=== PATIENT | male | born 1950 | race Caucasian/White ===

== ENCOUNTER 2017-10-17 17:16 | Emergency (ER) | payer MEDICARE, MEDICAID ==
[~2017-10-17] VITALS: Ht 185.4 cm; Wt 77.7 kg
[~2017-10-17 17:16] MED LIST: CALC667T5 PO; ENAL20TA PO; LANTUS SUBCUT; LOSA25TA96 PO; NIFE90TA2 PO; SYN0.088T PO
[2017-10-17] MEDS ORDERED: albuterol 2.5 MG/3 ML nebule NEB ONE (18:45)
[2017-10-17] MEDS ORDERED: ALBU8HFA PO (19:28)
[2017-10-17 19:37] VITALS: BP 175/86
== END 2017-10-17 19:38 | disposition home or self-care (01) ==
LOC: ER 17:17
DX: R05 Cough (principal); R06.2 Wheezing; E11.22 Type 2 diabetes mellitus with diabetic chronic kidney disease; N18.6 End stage renal disease; Z99.2 Dependence on renal dialysis; Z79.4 Long term (current) use of insulin
CPT/HCPCS: 71046; 94640; 94760; 99284

== ENCOUNTER 2017-12-04 08:14 | Day surgery (SDC) | payer MEDICARE, MEDICAID ==
[2017-12-04] VITALS (9 sets, daily range): BP systolic 140–174; BP diastolic 76–103
[~2017-12-04] VITALS: Ht 185.4 cm; Wt 87.4 kg
[~2017-12-04 08:14] MED LIST changes: +APIX5TAB3 PO; -CALC667T5 PO; +FOLI0.8T7 PO; +FURO40TA4 PO; -LANTUS SUBCUT; +LIDOcaine 1% 30ml preserv. free vial SQ STA; -LOSA25TA96 PO; +METO-477 PO; -NIFE90TA2 PO; -SYN0.088T PO
[2017-12-04] MEDS ORDERED: DILT30TA34 PO (08:59)
== END 2017-12-04 10:25 | disposition home or self-care (01) ==
LOC: SSTAY O 08:14
PROVIDERS: ATTEND Radiology Diagnostic Radiology
DX: J90 Pleural effusion, not elsewhere classified (principal); E11.22 Type 2 diabetes mellitus with diabetic chronic kidney disease; I13.2 Hypertensive heart and chronic kidney disease with heart failure and with stage 5 chronic kidney disease, or end stage renal disease; N18.6 End stage renal disease; I50.9 Heart failure, unspecified; B19.20 Unspecified viral hepatitis C without hepatic coma; F10.21 Alcohol dependence, in remission; F17.210 Nicotine dependence, cigarettes, uncomplicated; Z79.01 Long term (current) use of anticoagulants; Z79.4 Long term (current) use of insulin; Z94.4 Liver transplant status; Z99.2 Dependence on renal dialysis; Z98.890 Other specified postprocedural states; Z79.899 Other long term (current) drug therapy
CPT/HCPCS: 32555; 71045; A6449; J3490; 36415; 88108; 88305

== ENCOUNTER 2017-12-16 09:58 | Day surgery (SDC) | payer MEDICARE, MEDICAID ==
[2017-12-11 15:40] LABS: BASOPHILS % (AUTO) 0.6 % (0-1); EOSINOPHILS # (AUTO) 0.5 X10'3 (0-0.9); EOSINOPHILS % (AUTO) 8.1 % (0-6); HEMOGLOBIN 13.1 g/dl (14.0-17.9); LYMPHOCYTES # (AUTO) 1.2 X10'3 (1.1-4.8); LYMPHOCYTES % (AUTO) 20.1 % (21-51); MEAN CORPUSCULAR HEMOGLOBIN 34.9 PG (27.0-31.0); MEAN CORPUSCULAR HGB CONC 34.3 % (33.0-36.5); MEAN CORPUSCULAR VOLUME 101.8 FL (78-98); MEAN PLATELET VOLUME 7.6 FL (7.4-10.4); MONOCYTES # (AUTO) 0.6 X10'3 (0-0.9); MONOCYTES % (AUTO) 10.3 % (2-12); NEUTROPHILS # (AUTO) 3.6 X10'3 (1.8-7.7); NEUTROPHILS % (AUTO) 60.9 % (42-75); PLATELET COUNT 110 X10'3 (140-440); RED BLOOD COUNT 3.73 X10'6 (4.70-6.10); RED CELL DISTRIBUTION WIDTH 17.4 % (11.5-14.5)
[2017-12-11 15:49] LABS: ANION GAP 10 (8-16); BLOOD UREA NITROGEN 61 MG/DL (7-18); BUN/CREATININE RATIO 10.9 (5.4-32.0); CALCIUM 7.8 MG/DL (8.5-10.1); CHLORIDE 98 MMOL/L (99-107); CREATININE 5.58 MG/DL (0.60-1.10); GLUCOSE 316 MG/DL (70-104); POTASSIUM 4.4 MMOL/L (3.5-5.1); SODIUM 137 MMOL/L (135-145); TOTAL CARBON DIOXIDE 29.5 MMOL/L (24-32); eGFR 10 ML/MIN
[2017-12-11 15:50] LABS: INR 1.1 INR; PARTIAL THROMBOPLASTIN TIME 31 SECONDS (22-32); PROTHROMBIN TIME 11.4 SECONDS (9.0-12.0)
[~2017-12-16] VITALS: Ht 185.4 cm; Wt 87.0 kg
[2017-12-16] VITALS (14 sets, daily range): BP systolic 123–158; BP diastolic 76–113
[~2017-12-16 09:58] MED LIST changes: +DILT30TA34 PO; -LIDOcaine 1% 30ml preserv. free vial SQ STA
[2017-12-16] MEDS ORDERED: LIDOcaine 1% (10mg/ml) 2ml vial ONE (10:28)
[2017-12-16] MEDS ORDERED: fentaNYL/PF 50MCG/1 ML 2ML syringe IV ONE (10:55)
[2017-12-16] MEDS ORDERED: normal saline 1000ml 1,000 ML IV PRN (10:55)
[2017-12-16] MEDS ORDERED: MIDAZolam 1mg/ml 10ml vial IV ONE (10:55)
[2017-12-16] MEDS ORDERED: LANTUS SQ (10:58)
[2017-12-16] MEDS ORDERED: FURO80TA3 PO (10:58)
== END 2017-12-16 14:15 | disposition home or self-care (01) ==
LOC: SSTAY O 09:58
PROVIDERS: ATTEND Internal Medicine Interventional Cardiology
DX: I48.91 Unspecified atrial fibrillation (principal); I12.0 Hypertensive chronic kidney disease with stage 5 chronic kidney disease or end stage renal disease; E10.22 Type 1 diabetes mellitus with diabetic chronic kidney disease; N18.6 End stage renal disease; B19.20 Unspecified viral hepatitis C without hepatic coma; I44.39 Other atrioventricular block; F17.210 Nicotine dependence, cigarettes, uncomplicated; F19.21 Other psychoactive substance dependence, in remission; Z94.4 Liver transplant status; Z79.4 Long term (current) use of insulin; Z79.01 Long term (current) use of anticoagulants; Z79.82 Long term (current) use of aspirin; Z99.2 Dependence on renal dialysis; Z79.899 Other long term (current) drug therapy; Z98.890 Other specified postprocedural states
CPT/HCPCS: 36415; 80048; 82948; 85025; 85610; 85730; 92960; 93005; J2250; J3010; J7030; A4620; J3490

== ENCOUNTER 2018-02-16 23:15 | Inpatient (IN) | payer MEDICARE, MEDICAID ==
[~2018-02-16] VITALS: Ht 185.4 cm; Wt 80.4 kg
[~2018-02-16 23:15] MED LIST changes: -DILT30TA34 PO; -ENAL20TA PO; -FURO40TA4 PO; +FURO80TA3 PO; +LANTUS SQ
[2018-02-16 23:58] LABS: BASOPHILS # (AUTO) 0.1 X10'3 (0-0.2); BASOPHILS % (AUTO) 0.8 % (0-1); EOSINOPHILS # (AUTO) 0.5 X10'3 (0-0.9); EOSINOPHILS % (AUTO) 7.3 % (0-6); HEMATOCRIT 28.9 % (42.0-52.0); LYMPHOCYTES # (AUTO) 1.7 X10'3 (1.1-4.8); LYMPHOCYTES % (AUTO) 23.4 % (21-51); MEAN CORPUSCULAR HEMOGLOBIN 34.3 PG (27.0-31.0); MEAN CORPUSCULAR HGB CONC 34.6 % (33.0-36.5); MEAN CORPUSCULAR VOLUME 99.3 FL (78-98); MEAN PLATELET VOLUME 6.9 FL (7.4-10.4); MONOCYTES # (AUTO) 0.6 X10'3 (0-0.9); MONOCYTES % (AUTO) 7.6 % (2-12); NEUTROPHILS # (AUTO) 4.4 X10'3 (1.8-7.7); NEUTROPHILS % (AUTO) 60.9 % (42-75); PLATELET COUNT 157 X10'3 (140-440); RED BLOOD COUNT 2.91 X10'6 (4.70-6.10); RED CELL DISTRIBUTION WIDTH 16.3 % (11.5-14.5); WHITE BLOOD COUNT 7.2 X10'3 (4.5-11.0)
[2018-02-17] VITALS (13 sets, daily range): BP systolic 145–188; BP diastolic 70–96
[2018-02-17 00:08] LABS: PARTIAL THROMBOPLASTIN TIME 28 SECONDS (22-32); PROTHROMBIN TIME 10.4 SECONDS (9.0-12.0)
[2018-02-17 00:11] LABS: ALANINE AMINOTRANSFERASE 23 U/L (12-78); ALBUMIN/GLOBULIN RATIO 0.7 (1.1-1.5); ALKALINE PHOSPHATASE 136 IU/L (46-116); ANION GAP 8 (8-16); ASPARTATE AMINO TRANSFERASE 25 U/L (10-37); BILIRUBIN,TOTAL 0.8 MG/DL (0.1-1.0); BLOOD UREA NITROGEN 54 MG/DL (7-18); BUN/CREATININE RATIO 11.4 (5.4-32.0); CALCIUM 7.6 MG/DL (8.5-10.1); CHLORIDE 98 MMOL/L (99-107); CREATININE 4.73 MG/DL (0.60-1.10); GLUCOSE 123 MG/DL (70-104); POTASSIUM 4.4 MMOL/L (3.5-5.1); SODIUM 139 MMOL/L (135-145); TOTAL CARBON DIOXIDE 32.8 MMOL/L (24-32); TOTAL PROTEIN 7.3 G/DL (6.4-8.2); eGFR 12 ML/MIN
[2018-02-17] MEDS ORDERED: morphine 4 MG/ML inj SYRINge IV ONE (00:40)
[2018-02-17] MEDS ORDERED: ondansetron/PF 4mg/2ml inj IV ONE (00:40)
[2018-02-17] MEDS ORDERED: mag hydrox/Alum hydrox/simeth 30ml oral suspension PO PRN (01:10)
[2018-02-17] MEDS ORDERED: acetaminophen 325mg tablet PO PRN ×2 (01:10)
[2018-02-17] MEDS ORDERED: magnesium hydroxide 30ml (MOM) UD suspension PO PRN (01:10)
[2018-02-17] MEDS ORDERED: dextrose ORAL solution 15 GM/59 ML bottle PO PRN ×2 (01:20)
[2018-02-17] MEDS ORDERED: dextrose 50%-water 50ml dispensing syringe IV PRN ×2 (01:20)
[2018-02-17] MEDS ORDERED: glucagon, human recombinant 1mg kit SUBCUT PRN (01:20)
[2018-02-17] MEDS ORDERED: MESSAGE TO PHARMACY PO ONE (01:20)
[2018-02-17 01:55] LABS: HEMOGLOBIN A1C 7.1 % (4.5-6.2)
[2018-02-17] MEDS: pantoprazole 40MG/NS 100ML BAG 100 ML IV SCH ×5 (04:02→21:01)
[2018-02-17] MEDS ORDERED: MORPHINE 2MG in 2ml NS syringe IV PRN (04:40)
[2018-02-17] MEDS: morphine 2 MG/ML inj. syringe IV PRN ×2 (06:06→11:00)
[2018-02-17] MEDS: ondansetron/PF 4mg/2ml inj IV PRN ×2 (06:30→13:16)
[2018-02-17 06:47] LABS: CLARITY,URINE CLEAR (Clear); COLOR,URINE YELLOW (Yellow); GLUCOSE, URINE 250 mg/dl (Neg); KETONES,URINE NEGATIVE (Neg); LEUKOCYTE ESTERASE ,URINE NEGATIVE (Neg); NITRITES, URINE NEGATIVE (Neg); OCCULT BLOOD,URINE SMALL (Neg); PROTEIN,URINE >=300 mg/dl (Neg); UA COLLECTION TYPE VOIDED; UROBILINOGEN,URINE 0.2 E.U/dL (0.2-1.0)
[2018-02-17 06:57] LABS: BACTERIA,URINE NONE SEEN /HPF (Neg); MUCUS STRANDS NONE SEEN /LPF (Neg); SQUAMOUS EPITHELIAL CELL,UR FEW /LPF (FEW); WBC,URINE NONE SEEN /HPF (0-4)
[2018-02-17] MEDS: folic acid/vitamin B complex w/vitamin C 0.8mg tablet PO SCH (08:08)
[2018-02-17] MEDS: furosemide 40mg tablet PO SCH ×2 (08:08→19:37)
[2018-02-17] MEDS: metoprolol tartrate 50mg tablet PO SCH ×4 (08:08→20:56)
[2018-02-17 08:22] LABS: BASOPHILS % (AUTO) 0.5 % (0-1); EOSINOPHILS # (AUTO) 0.4 X10'3 (0-0.9); EOSINOPHILS % (AUTO) 7.8 % (0-6); HEMATOCRIT 24.1 % (42.0-52.0); HEMOGLOBIN 8.4 g/dl (14.0-17.9); LYMPHOCYTES # (AUTO) 0.9 X10'3 (1.1-4.8); LYMPHOCYTES % (AUTO) 17.4 % (21-51); MEAN CORPUSCULAR HEMOGLOBIN 34.3 PG (27.0-31.0); MEAN CORPUSCULAR HGB CONC 34.7 % (33.0-36.5); MEAN CORPUSCULAR VOLUME 98.7 FL (78-98); MEAN PLATELET VOLUME 7.1 FL (7.4-10.4); MONOCYTES # (AUTO) 0.4 X10'3 (0-0.9); MONOCYTES % (AUTO) 7.5 % (2-12); NEUTROPHILS # (AUTO) 3.5 X10'3 (1.8-7.7); NEUTROPHILS % (AUTO) 66.8 % (42-75); PLATELET COUNT 107 X10'3 (140-440); RED BLOOD COUNT 2.44 X10'6 (4.70-6.10); RED CELL DISTRIBUTION WIDTH 16.1 % (11.5-14.5); WHITE BLOOD COUNT 5.3 X10'3 (4.5-11.0)
[2018-02-17 08:36] LABS: OCCULT BLOOD STOOL POSITIVE (Neg)
[2018-02-17 08:47] LABS: ALANINE AMINOTRANSFERASE 20 U/L (12-78); ALBUMIN 2.4 G/DL (3.4-5.0); ALBUMIN/GLOBULIN RATIO 0.7 (1.1-1.5); ALKALINE PHOSPHATASE 92 IU/L (46-116); ANION GAP 7 (8-16); ASPARTATE AMINO TRANSFERASE 22 U/L (10-37); BILIRUBIN,TOTAL 0.9 MG/DL (0.1-1.0); BLOOD UREA NITROGEN 61 MG/DL (7-18); BUN/CREATININE RATIO 11.8 (5.4-32.0); CALCIUM 7.5 MG/DL (8.5-10.1); CHLORIDE 101 MMOL/L (99-107); CREATININE 5.15 MG/DL (0.60-1.10); GLUCOSE 119 MG/DL (70-104); POTASSIUM 4.6 MMOL/L (3.5-5.1); SODIUM 139 MMOL/L (135-145); TOTAL CARBON DIOXIDE 31.3 MMOL/L (24-32); TOTAL PROTEIN 5.9 G/DL (6.4-8.2); eGFR 11 ML/MIN
[2018-02-17] MEDS ORDERED: TEMA30CA5 PO (09:46)
[2018-02-17] MEDS ORDERED: VALS80TA31 PO (09:49)
[2018-02-17 12:02] LABS: HEMATOCRIT 25.3 % (42.0-52.0); HEMOGLOBIN 8.9 g/dl (14.0-17.9); MEAN CORPUSCULAR HEMOGLOBIN 34.6 PG (27.0-31.0); MEAN CORPUSCULAR HGB CONC 35.1 % (33.0-36.5); MEAN CORPUSCULAR VOLUME 98.6 FL (78-98); MEAN PLATELET VOLUME 6.9 FL (7.4-10.4); PLATELET COUNT 125 X10'3 (140-440); RED BLOOD COUNT 2.56 X10'6 (4.70-6.10); RED CELL DISTRIBUTION WIDTH 16.1 % (11.5-14.5); WHITE BLOOD COUNT 6.2 X10'3 (4.5-11.0)
[2018-02-17] MEDS ORDERED: METO-477 PO (13:22)
[2018-02-17] MEDS ORDERED: MIDAZolam 5mg/5ml vial ONE (16:49)
[2018-02-17] MEDS ORDERED: fentaNYL/PF 50MCG/1 ML 2ML syringe ONE (16:49)
[2018-02-17] MEDS ORDERED: LIDOcaine Viscous 15ml cup ONE (16:49)
[2018-02-17] MEDS ORDERED: ondansetron/PF 4mg/2ml inj ONE (17:45)
[2018-02-17] MEDS ORDERED: PEG 3350/Na sulf,bicarb,Cl/KCl oral sol 4 liter bottle PO ONE ×2 (18:45→18:50)
[2018-02-17] MEDS: insulin glargine (Lantus) pen - multi-dose SQ SCH (21:00)
[2018-02-18] VITALS (9 sets, daily range): BP systolic 159–186; BP diastolic 55–83
[2018-02-18] MEDS: ondansetron/PF 4mg/2ml inj IV PRN ×2 (00:02→21:34)
[2018-02-18] MEDS: pantoprazole 40MG/NS 100ML BAG 100 ML IV SCH ×4 (02:05→17:42)
[2018-02-18 06:09] LABS: BASOPHILS % (AUTO) 0.6 % (0-1); EOSINOPHILS # (AUTO) 0.3 X10'3 (0-0.9); EOSINOPHILS % (AUTO) 4.5 % (0-6); HEMATOCRIT 24.2 % (42.0-52.0); HEMOGLOBIN 8.6 g/dl (14.0-17.9); MEAN CORPUSCULAR HEMOGLOBIN 34.7 PG (27.0-31.0); MEAN CORPUSCULAR HGB CONC 35.5 % (33.0-36.5); MEAN CORPUSCULAR VOLUME 97.7 FL (78-98); MEAN PLATELET VOLUME 7.1 FL (7.4-10.4); MONOCYTES # (AUTO) 0.3 X10'3 (0-0.9); MONOCYTES % (AUTO) 5.6 % (2-12); NEUTROPHILS # (AUTO) 4.5 X10'3 (1.8-7.7); NEUTROPHILS % (AUTO) 73.3 % (42-75); PLATELET COUNT 125 X10'3 (140-440); RED BLOOD COUNT 2.47 X10'6 (4.70-6.10); RED CELL DISTRIBUTION WIDTH 16.1 % (11.5-14.5); WHITE BLOOD COUNT 6.1 X10'3 (4.5-11.0)
[2018-02-18 06:37] LABS: ALANINE AMINOTRANSFERASE 19 U/L (12-78); ALBUMIN 2.7 G/DL (3.4-5.0); ALBUMIN/GLOBULIN RATIO 0.8 (1.1-1.5); ALKALINE PHOSPHATASE 87 IU/L (46-116); ANION GAP 15 (8-16); ASPARTATE AMINO TRANSFERASE 22 U/L (10-37); BILIRUBIN,TOTAL 1.1 MG/DL (0.1-1.0); BLOOD UREA NITROGEN 78 MG/DL (7-18); BUN/CREATININE RATIO 12.1 (5.4-32.0); CALCIUM 7.4 MG/DL (8.5-10.1); CHLORIDE 100 MMOL/L (99-107); CREATININE 6.45 MG/DL (0.60-1.10); GLUCOSE 143 MG/DL (70-104); MAGNESIUM 2.2 MG/DL (1.5-2.4); PHOSPHORUS 6.3 MG/DL (2.3-4.5); POTASSIUM 5.7 MMOL/L (3.5-5.1); SODIUM 140 MMOL/L (135-145); TOTAL CARBON DIOXIDE 25.5 MMOL/L (24-32); TOTAL PROTEIN 6.3 G/DL (6.4-8.2); eGFR 9 ML/MIN
[2018-02-18] MEDS: folic acid/vitamin B complex w/vitamin C 0.8mg tablet PO SCH (07:19)
[2018-02-18] MEDS: furosemide 40mg tablet PO SCH ×2 (07:19→21:30)
[2018-02-18] MEDS: metoprolol tartrate 50mg tablet PO SCH ×3 (07:19→21:30)
[2018-02-18] MEDS ORDERED: normal saline 1000ml 250 ML IV PRN (08:00)
[2018-02-18] MEDS ORDERED: PEG 3350/Na sulf,bicarb,Cl/KCl oral sol 4 liter bottle PO ONE (08:00)
[2018-02-18] MEDS ORDERED: normal saline 1000ml 100 ML IV PRN (08:00)
[2018-02-18] MEDS ORDERED: LIDOcaine 1% (10mg/ml) 2ml vial SQ ONE (08:00)
[2018-02-18] MEDS ORDERED: epoetin 20,000 units/ml inj IV ONE (08:00)
[2018-02-18] MEDS ORDERED: MIDAZolam 5mg/5ml vial ONE (14:08)
[2018-02-18] MEDS ORDERED: fentaNYL/PF 50MCG/1 ML 2ML syringe ONE (14:08)
[2018-02-18] MEDS: insulin glargine (Lantus) pen - multi-dose SQ SCH (21:53)
[2018-02-19] MEDS: pantoprazole 40MG/NS 100ML BAG 100 ML IV SCH ×6 (01:00→22:13)
[2018-02-19 02:00] VITALS: BP 186/79
[2018-02-19 06:00] VITALS: BP 173/74
[2018-02-19 06:35] LABS: BASOPHILS % (AUTO) 0.6 % (0-1); EOSINOPHILS # (AUTO) 0.4 X10'3 (0-0.9); EOSINOPHILS % (AUTO) 6.8 % (0-6); HEMOGLOBIN 7.6 g/dl (14.0-17.9); LYMPHOCYTES # (AUTO) 1.2 X10'3 (1.1-4.8); LYMPHOCYTES % (AUTO) 21.3 % (21-51); MEAN CORPUSCULAR HEMOGLOBIN 34.1 PG (27.0-31.0); MEAN CORPUSCULAR HGB CONC 34.9 % (33.0-36.5); MEAN CORPUSCULAR VOLUME 97.7 FL (78-98); MEAN PLATELET VOLUME 6.9 FL (7.4-10.4); MONOCYTES # (AUTO) 0.5 X10'3 (0-0.9); MONOCYTES % (AUTO) 9.4 % (2-12); NEUTROPHILS # (AUTO) 3.5 X10'3 (1.8-7.7); NEUTROPHILS % (AUTO) 61.9 % (42-75); PLATELET COUNT 108 X10'3 (140-440); RED BLOOD COUNT 2.22 X10'6 (4.70-6.10); RED CELL DISTRIBUTION WIDTH 16.7 % (11.5-14.5); WHITE BLOOD COUNT 5.6 X10'3 (4.5-11.0)
[2018-02-19 06:45] LABS: HEMATOCRIT 21.7 % (42.0-52.0)
[2018-02-19 06:50] LABS: ALANINE AMINOTRANSFERASE 23 U/L (12-78); ALBUMIN 2.5 G/DL (3.4-5.0); ALBUMIN/GLOBULIN RATIO 0.7 (1.1-1.5); ALKALINE PHOSPHATASE 86 IU/L (46-116); ANION GAP 9 (8-16); ASPARTATE AMINO TRANSFERASE 20 U/L (10-37); BILIRUBIN,TOTAL 0.9 MG/DL (0.1-1.0); BLOOD UREA NITROGEN 36 MG/DL (7-18); BUN/CREATININE RATIO 8.1 (5.4-32.0); CALCIUM 7.2 MG/DL (8.5-10.1); CHLORIDE 102 MMOL/L (99-107); CREATININE 4.43 MG/DL (0.60-1.10); GLUCOSE 158 MG/DL (70-104); MAGNESIUM 1.7 MG/DL (1.5-2.4); PHOSPHORUS 4.4 MG/DL (2.3-4.5); POTASSIUM 4.2 MMOL/L (3.5-5.1); SODIUM 140 MMOL/L (135-145); TOTAL CARBON DIOXIDE 29.3 MMOL/L (24-32); TOTAL PROTEIN 5.9 G/DL (6.4-8.2); eGFR 13 ML/MIN
[2018-02-19] MEDS: insulin Lispro (HumaLOG) vial - multi-dose SQ SCH ×2 (07:33→17:17)
[2018-02-19] MEDS: folic acid/vitamin B complex w/vitamin C 0.8mg tablet PO SCH (07:48)
[2018-02-19] MEDS: furosemide 40mg tablet PO SCH ×2 (07:48→19:51)
[2018-02-19] MEDS: metoprolol tartrate 50mg tablet PO SCH ×3 (07:49→22:13)
[2018-02-19 10:00] VITALS: BP 185/95
[2018-02-19] MEDS: ondansetron/PF 4mg/2ml inj IV PRN (13:06)
[2018-02-19] MEDS: valsartan 80mg tablet PO SCH (15:54)
[2018-02-19] MEDS: insulin glargine (Lantus) pen - multi-dose SQ SCH (17:14)
[2018-02-19 18:00] VITALS: BP 168/69
[2018-02-19 22:00] VITALS: BP 170/70
[2018-02-19 22:14] VITALS: BP 161/82
[2018-02-20] MEDS: ondansetron/PF 4mg/2ml inj IV PRN ×2 (01:09→11:20)
[2018-02-20] MEDS: pantoprazole 40MG/NS 100ML BAG 100 ML IV SCH ×6 (02:57→19:41)
[2018-02-20 05:28] LABS: BASOPHILS % (AUTO) 0.6 % (0-1); EOSINOPHILS # (AUTO) 0.5 X10'3 (0-0.9); EOSINOPHILS % (AUTO) 8.3 % (0-6); HEMOGLOBIN 7.3 g/dl (14.0-17.9); LYMPHOCYTES # (AUTO) 1.2 X10'3 (1.1-4.8); LYMPHOCYTES % (AUTO) 19.5 % (21-51); MEAN CORPUSCULAR HEMOGLOBIN 34.7 PG (27.0-31.0); MEAN PLATELET VOLUME 7.1 FL (7.4-10.4); MONOCYTES # (AUTO) 0.5 X10'3 (0-0.9); NEUTROPHILS # (AUTO) 3.8 X10'3 (1.8-7.7); NEUTROPHILS % (AUTO) 63.6 % (42-75); PLATELET COUNT 109 X10'3 (140-440); RED BLOOD COUNT 2.11 X10'6 (4.70-6.10)
[2018-02-20 05:40] LABS: HEMATOCRIT 20.9 % (42.0-52.0)
[2018-02-20 05:57] LABS: ALANINE AMINOTRANSFERASE 20 U/L (12-78); ALBUMIN 2.5 G/DL (3.4-5.0); ALBUMIN/GLOBULIN RATIO 0.7 (1.1-1.5); ALKALINE PHOSPHATASE 86 IU/L (46-116); ANION GAP 9 (8-16); ASPARTATE AMINO TRANSFERASE 17 U/L (10-37); BILIRUBIN,TOTAL 0.7 MG/DL (0.1-1.0); BLOOD UREA NITROGEN 49 MG/DL (7-18); BUN/CREATININE RATIO 7.7 (5.4-32.0); CALCIUM 7.2 MG/DL (8.5-10.1); CHLORIDE 100 MMOL/L (99-107); CREATININE 6.39 MG/DL (0.60-1.10); GLUCOSE 126 MG/DL (70-104); MAGNESIUM 1.5 MG/DL (1.5-2.4); PHOSPHORUS 5.1 MG/DL (2.3-4.5); POTASSIUM 4.2 MMOL/L (3.5-5.1); SODIUM 137 MMOL/L (135-145); TOTAL CARBON DIOXIDE 27.7 MMOL/L (24-32); TOTAL PROTEIN 5.9 G/DL (6.4-8.2); eGFR 9 ML/MIN
[2018-02-20] MEDS: furosemide 40mg tablet PO SCH ×2 (08:00→19:41)
[2018-02-20] MEDS ORDERED: normal saline 1000ml 250 ML IV PRN (08:00)
[2018-02-20] MEDS ORDERED: epoetin 20,000 units/ml inj IV ONE (08:00)
[2018-02-20] MEDS: folic acid/vitamin B complex w/vitamin C 0.8mg tablet PO SCH (08:00)
[2018-02-20] MEDS: metoprolol tartrate 50mg tablet PO SCH ×3 (08:00→21:18)
[2018-02-20] MEDS ORDERED: LIDOcaine 1% (10mg/ml) 2ml vial SQ ONE (08:00)
[2018-02-20] MEDS ORDERED: normal saline 1000ml 100 ML IV PRN (08:00)
[2018-02-20] MEDS: valsartan 80mg tablet PO SCH (08:00)
[2018-02-20 10:00] VITALS: BP 186/90
[2018-02-20 18:00] VITALS: BP 176/72
[2018-02-20] MEDS ORDERED: LORazepam 2 mg/ml vial IV ONE (18:20)
[2018-02-20 19:40] VITALS: BP 182/77
[2018-02-20] MEDS: insulin glargine (Lantus) pen - multi-dose SQ SCH (21:22)
[2018-02-20 22:00] VITALS: BP 175/72
[2018-02-21] VITALS (7 sets, daily range): BP systolic 166–196; BP diastolic 55–91
[2018-02-21] MEDS: pantoprazole 40MG/NS 100ML BAG 100 ML IV SCH ×2 (00:47→06:11)
[2018-02-21] MEDS: valsartan 80mg tablet PO SCH (05:40)
[2018-02-21 06:04] LABS: BASOPHILS % (AUTO) 0.6 % (0-1); EOSINOPHILS # (AUTO) 0.5 X10'3 (0-0.9); EOSINOPHILS % (AUTO) 8.8 % (0-6); HEMOGLOBIN 7.5 g/dl (14.0-17.9); LYMPHOCYTES # (AUTO) 1.1 X10'3 (1.1-4.8); LYMPHOCYTES % (AUTO) 17.3 % (21-51); MEAN CORPUSCULAR HEMOGLOBIN 34.5 PG (27.0-31.0); MEAN CORPUSCULAR VOLUME 98.6 FL (78-98); MEAN PLATELET VOLUME 7.2 FL (7.4-10.4); MONOCYTES # (AUTO) 0.6 X10'3 (0-0.9); MONOCYTES % (AUTO) 9.5 % (2-12); NEUTROPHILS # (AUTO) 3.9 X10'3 (1.8-7.7); NEUTROPHILS % (AUTO) 63.8 % (42-75); PLATELET COUNT 114 X10'3 (140-440); RED BLOOD COUNT 2.18 X10'6 (4.70-6.10); RED CELL DISTRIBUTION WIDTH 16.6 % (11.5-14.5); WHITE BLOOD COUNT 6.1 X10'3 (4.5-11.0)
[2018-02-21 06:10] LABS: HEMATOCRIT 21.4 % (42.0-52.0)
[2018-02-21 06:43] LABS: ALANINE AMINOTRANSFERASE 22 U/L (12-78); ALBUMIN 2.5 G/DL (3.4-5.0); ALBUMIN/GLOBULIN RATIO 0.7 (1.1-1.5); ALKALINE PHOSPHATASE 95 IU/L (46-116); ANION GAP 7 (8-16); ASPARTATE AMINO TRANSFERASE 16 U/L (10-37); BILIRUBIN,TOTAL 0.8 MG/DL (0.1-1.0); BLOOD UREA NITROGEN 34 MG/DL (7-18); BUN/CREATININE RATIO 7.5 (5.4-32.0); CALCIUM 7.4 MG/DL (8.5-10.1); CHLORIDE 102 MMOL/L (99-107); CREATININE 4.52 MG/DL (0.60-1.10); GLUCOSE 238 MG/DL (70-104); MAGNESIUM 1.9 MG/DL (1.5-2.4); PHOSPHORUS 3.6 MG/DL (2.3-4.5); POTASSIUM 4.2 MMOL/L (3.5-5.1); SODIUM 138 MMOL/L (135-145); TOTAL CARBON DIOXIDE 29.4 MMOL/L (24-32); eGFR 13 ML/MIN
[2018-02-21] MEDS: furosemide 40mg tablet PO SCH ×2 (07:33→20:00)
[2018-02-21] MEDS: metoprolol tartrate 50mg tablet PO SCH ×3 (07:33→21:15)
[2018-02-21] MEDS: folic acid/vitamin B complex w/vitamin C 0.8mg tablet PO SCH (07:33)
[2018-02-21] MEDS ORDERED: temazepam 15mg capsule PO PRN (09:35)
[2018-02-21] MEDS: insulin glargine (Lantus) pen - multi-dose SQ SCH (21:17)
[2018-02-22 05:39] LABS: BASOPHILS % (AUTO) 0.6 % (0-1); EOSINOPHILS # (AUTO) 0.7 X10'3 (0-0.9); EOSINOPHILS % (AUTO) 10.7 % (0-6); HEMOGLOBIN 7.4 g/dl (14.0-17.9); LYMPHOCYTES # (AUTO) 1.3 X10'3 (1.1-4.8); LYMPHOCYTES % (AUTO) 19.8 % (21-51); MEAN CORPUSCULAR HEMOGLOBIN 34.8 PG (27.0-31.0); MEAN CORPUSCULAR HGB CONC 34.9 % (33.0-36.5); MEAN CORPUSCULAR VOLUME 99.8 FL (78-98); MONOCYTES # (AUTO) 0.6 X10'3 (0-0.9); MONOCYTES % (AUTO) 9.2 % (2-12); NEUTROPHILS # (AUTO) 3.8 X10'3 (1.8-7.7); NEUTROPHILS % (AUTO) 59.7 % (42-75); PLATELET COUNT 115 X10'3 (140-440); RED BLOOD COUNT 2.12 X10'6 (4.70-6.10); RED CELL DISTRIBUTION WIDTH 16.1 % (11.5-14.5); WHITE BLOOD COUNT 6.4 X10'3 (4.5-11.0)
[2018-02-22 05:54] LABS: HEMATOCRIT 21.2 % (42.0-52.0)
[2018-02-22 06:00] VITALS: BP 184/74
[2018-02-22 06:13] LABS: ALANINE AMINOTRANSFERASE 17 U/L (12-78); ALBUMIN 2.4 G/DL (3.4-5.0); ALBUMIN/GLOBULIN RATIO 0.7 (1.1-1.5); ALKALINE PHOSPHATASE 86 IU/L (46-116); ANION GAP 9 (8-16); ASPARTATE AMINO TRANSFERASE 19 U/L (10-37); BILIRUBIN,TOTAL 0.7 MG/DL (0.1-1.0); BLOOD UREA NITROGEN 52 MG/DL (7-18); BUN/CREATININE RATIO 8.5 (5.4-32.0); CALCIUM 7.2 MG/DL (8.5-10.1); CHLORIDE 102 MMOL/L (99-107); CREATININE 6.12 MG/DL (0.60-1.10); GLUCOSE 84 MG/DL (70-104); MAGNESIUM 1.8 MG/DL (1.5-2.4); PHOSPHORUS 5.2 MG/DL (2.3-4.5); POTASSIUM 4.1 MMOL/L (3.5-5.1); SODIUM 139 MMOL/L (135-145); TOTAL CARBON DIOXIDE 28.5 MMOL/L (24-32); eGFR 9 ML/MIN
[2018-02-22] MEDS ORDERED: pantoprazole 40mg Tablet.DR PO SCH (07:30)
[2018-02-22 07:57] VITALS: BP 181/79
[2018-02-22] MEDS: valsartan 80mg tablet PO SCH (07:58)
[2018-02-22] MEDS: metoprolol tartrate 50mg tablet PO SCH (07:58)
[2018-02-22] MEDS: folic acid/vitamin B complex w/vitamin C 0.8mg tablet PO SCH (07:58)
[2018-02-22] MEDS: furosemide 40mg tablet PO SCH (07:58)
[2018-02-22] MEDS ORDERED: PANT40TA4 PO (11:03)
== END 2018-02-22 11:43 | disposition home or self-care (01) | DRG 377 ==
LOC: ER 23:16 → ED HOLD 02-17 01:08 → ORTHO 4S 02-17 03:37
PROVIDERS: ADMIT Internal Medicine Critical Care Medicine; ATTEND Internal Medicine Critical Care Medicine
PROC: 0DB68ZX Excision of Stomach, Via Natural or Artificial Opening Endoscopic, Diagnostic (ICD-10-PCS; principal; 2018-02-17)
PROC: 0DBL8ZX Excision of Transverse Colon, Via Natural or Artificial Opening Endoscopic, Diagnostic (ICD-10-PCS; 2018-02-18)
PROC: 5A1D70Z Performance of Urinary Filtration, Intermittent, Less than 6 Hours Per Day (ICD-10-PCS; 2018-02-18)
PROC: 5A1D70Z Performance of Urinary Filtration, Intermittent, Less than 6 Hours Per Day (ICD-10-PCS; 2018-02-20)
DX: K92.1 Melena (principal); N18.6 End stage renal disease; K29.70 Gastritis, unspecified, without bleeding; F17.210 Nicotine dependence, cigarettes, uncomplicated; B19.20 Unspecified viral hepatitis C without hepatic coma; B18.2 Chronic viral hepatitis C; K64.8 Other hemorrhoids; E11.22 Type 2 diabetes mellitus with diabetic chronic kidney disease; K74.60 Unspecified cirrhosis of liver; I48.2 Chronic atrial fibrillation; F40.240 Claustrophobia; Z99.2 Dependence on renal dialysis; Z79.899 Other long term (current) drug therapy; Z79.01 Long term (current) use of anticoagulants; Z79.4 Long term (current) use of insulin
CPT/HCPCS: 36415; 43239; 45380; 80053; 81001; 82272; 82948; 83036; 83735; 84100; 85025; 85027; 85610; 85730; 86885; 86900; 86901; 87070; 88305; 93005; 96374; 96375; 99285; A4620; A6258; A6402; A6449; C9113; G0257; G0500; J0885; J1815; J2250; J2270; J2274; J2405; J3010; J3490; J7030

== ENCOUNTER 2018-04-29 09:58 | Inpatient (IN) | payer MEDICARE, MEDICAID ==
[~2018-04-29] VITALS: Ht 365.8 cm; Wt 81.9 kg
[~2018-04-29 09:58] MED LIST changes: -APIX5TAB3 PO; +PANT40TA4 PO; +TEMA30CA5 PO; +VALS80TA32 PO
[2018-04-29] MEDS ORDERED: normal saline 1000ML IV soln IVB ONE (10:25)
[2018-04-29] MEDS ORDERED: pantoprazole 40 MG vial IV ONE ×2 (10:25→10:55)
[2018-04-29] MEDS ORDERED: ondansetron/PF 4mg/2ml inj IV ONE (10:25)
[2018-04-29 10:51] LABS: BASOPHILS % (AUTO) 0.4 % (0-1); EOSINOPHILS # (AUTO) 0.5 X10'3 (0-0.9); EOSINOPHILS % (AUTO) 5.8 % (0-6); HEMATOCRIT 39.5 % (42.0-52.0); HEMOGLOBIN 13.3 g/dl (14.0-17.9); LYMPHOCYTES % (AUTO) 12.9 % (21-51); MEAN CORPUSCULAR HEMOGLOBIN 32.3 PG (27.0-31.0); MEAN CORPUSCULAR HGB CONC 33.7 % (33.0-36.5); MEAN CORPUSCULAR VOLUME 95.7 FL (78-98); MEAN PLATELET VOLUME 6.7 FL (7.4-10.4); MONOCYTES # (AUTO) 0.5 X10'3 (0-0.9); MONOCYTES % (AUTO) 5.8 % (2-12); NEUTROPHILS # (AUTO) 5.9 X10'3 (1.8-7.7); NEUTROPHILS % (AUTO) 75.1 % (42-75); PLATELET COUNT 137 X10'3 (140-440); RED BLOOD COUNT 4.12 X10'6 (4.70-6.10); RED CELL DISTRIBUTION WIDTH 15.9 % (11.5-14.5); WHITE BLOOD COUNT 7.9 X10'3 (4.5-11.0)
[2018-04-29] MEDS ORDERED: protamine sulf. 10mg/ml inj. IV ONE (11:00)
[2018-04-29 11:01] LABS: PARTIAL THROMBOPLASTIN TIME 29 SECONDS (22-32); PROTHROMBIN TIME 10.6 SECONDS (9.0-12.0)
[2018-04-29 11:14] LABS: ALANINE AMINOTRANSFERASE 18 U/L (12-78); ALBUMIN 3.2 G/DL (3.4-5.0); ALBUMIN/GLOBULIN RATIO 0.7 (1.1-1.5); ALKALINE PHOSPHATASE 136 IU/L (46-116); ANION GAP 12 (8-16); ASPARTATE AMINO TRANSFERASE 22 U/L (10-37); BILIRUBIN,TOTAL 1.3 MG/DL (0.1-1.0); BLOOD UREA NITROGEN 53 MG/DL (7-18); BUN/CREATININE RATIO 8.4 (5.4-32.0); CALCIUM 8.4 MG/DL (8.5-10.1); CHLORIDE 96 MMOL/L (99-107); CREATININE 6.28 MG/DL (0.60-1.10); GLUCOSE 166 MG/DL (70-104); POTASSIUM 4.1 MMOL/L (3.5-5.1); SODIUM 136 MMOL/L (135-145); TOTAL CARBON DIOXIDE 27.8 MMOL/L (24-32); TOTAL PROTEIN 7.5 G/DL (6.4-8.2); eGFR 9 ML/MIN
[2018-04-29] MEDS ORDERED: HYDROmorphone 2mg/ml vial IV PRN (11:45)
[2018-04-29 12:33] LABS: BASOPHILS % (AUTO) 0.4 % (0-1); EOSINOPHILS # (AUTO) 0.3 X10'3 (0-0.9); EOSINOPHILS % (AUTO) 3.6 % (0-6); HEMATOCRIT 34.6 % (42.0-52.0); HEMOGLOBIN 11.9 g/dl (14.0-17.9); LYMPHOCYTES # (AUTO) 0.8 X10'3 (1.1-4.8); LYMPHOCYTES % (AUTO) 10.5 % (21-51); MEAN CORPUSCULAR HEMOGLOBIN 32.8 PG (27.0-31.0); MEAN CORPUSCULAR HGB CONC 34.4 % (33.0-36.5); MEAN CORPUSCULAR VOLUME 95.3 FL (78-98); MEAN PLATELET VOLUME 6.9 FL (7.4-10.4); MONOCYTES # (AUTO) 0.5 X10'3 (0-0.9); MONOCYTES % (AUTO) 6.7 % (2-12); NEUTROPHILS # (AUTO) 5.9 X10'3 (1.8-7.7); NEUTROPHILS % (AUTO) 78.8 % (42-75); PLATELET COUNT 104 X10'3 (140-440); RED BLOOD COUNT 3.63 X10'6 (4.70-6.10); RED CELL DISTRIBUTION WIDTH 16.1 % (11.5-14.5); WHITE BLOOD COUNT 7.5 X10'3 (4.5-11.0)
[2018-04-29] MEDS ORDERED: PEG 3350/Na sulf,bicarb,Cl/KCl oral sol 4 liter bottle PO ONE (13:30)
[2018-04-29] MEDS ORDERED: diphenhydrAMINE 25mg capsule PO PRN (15:00)
[2018-04-29] MEDS ORDERED: HYDROmorphone 1 mg/ml syringe IV PRN (15:00)
[2018-04-29] MEDS: HYDROmorphone 1 mg/ml syringe IV PRN (15:32)
[2018-04-29] MEDS ORDERED: LISI-600 PO (15:42)
[2018-04-29] MEDS ORDERED: FOLI1TAB16 PO (15:42)
[2018-04-29] MEDS ORDERED: AMLO10TA13 PO (15:42)
[2018-04-29] MEDS ORDERED: SEVE800T8 PO (15:42)
[2018-04-29] MEDS: ondansetron/PF 4mg/2ml inj IV PRN (15:43)
[2018-04-29 15:49] LABS: HEMOGLOBIN A1C 6.8 % (4.5-6.2)
[2018-04-29] MEDS ORDERED: METO100T14 PO (15:53)
[2018-04-29] MEDS ORDERED: LOSA100T15 PO (15:53)
[2018-04-29] MEDS ORDERED: METO5TAB7 PO (15:53)
[2018-04-29] MEDS ORDERED: HYDR-3972 PO (15:54)
[2018-04-29 16:20] LABS: BASOPHILS # (AUTO) 0.1 X10'3 (0-0.2); BASOPHILS % (AUTO) 0.5 % (0-1); EOSINOPHILS # (AUTO) 0.6 X10'3 (0-0.9); EOSINOPHILS % (AUTO) 5.2 % (0-6); HEMATOCRIT 40.6 % (42.0-52.0); HEMOGLOBIN 13.9 g/dl (14.0-17.9); LYMPHOCYTES # (AUTO) 1.7 X10'3 (1.1-4.8); LYMPHOCYTES % (AUTO) 15.5 % (21-51); MEAN CORPUSCULAR HEMOGLOBIN 32.4 PG (27.0-31.0); MEAN CORPUSCULAR HGB CONC 34.3 % (33.0-36.5); MEAN CORPUSCULAR VOLUME 94.3 FL (78-98); MEAN PLATELET VOLUME 6.9 FL (7.4-10.4); MONOCYTES # (AUTO) 0.7 X10'3 (0-0.9); MONOCYTES % (AUTO) 6.3 % (2-12); NEUTROPHILS # (AUTO) 7.7 X10'3 (1.8-7.7); NEUTROPHILS % (AUTO) 72.5 % (42-75); PLATELET COUNT 154 X10'3 (140-440); WHITE BLOOD COUNT 10.7 X10'3 (4.5-11.0)
[2018-04-29 19:00] VITALS: BP 182/86
[2018-04-29] MEDS: pantoprazole 40MG/NS 100ML BAG 100 ML IV SCH ×2 (20:22→21:00)
[2018-04-29] MEDS: proMETHazine 25mg tablet PO PRN (20:57)
[2018-04-29 22:00] VITALS: BP 205/79
[2018-04-29] MEDS: hydrALAZINE 20mg/ml inj. IV PRN (22:36)
[2018-04-30] VITALS (19 sets, daily range): BP systolic 160–201; BP diastolic 61–86
[2018-04-30] MEDS: pantoprazole 40MG/NS 100ML BAG 100 ML IV SCH ×3 (00:26→11:56)
[2018-04-30] MEDS: ondansetron/PF 4mg/2ml inj IV PRN (02:20)
[2018-04-30] MEDS: proMETHazine 25mg tablet PO PRN ×2 (03:43→11:51)
[2018-04-30 05:14] LABS: BASOPHILS # (AUTO) 0.1 X10'3 (0-0.2); BASOPHILS % (AUTO) 0.6 % (0-1); EOSINOPHILS # (AUTO) 0.3 X10'3 (0-0.9); EOSINOPHILS % (AUTO) 4.1 % (0-6); HEMATOCRIT 36.7 % (42.0-52.0); HEMOGLOBIN 12.7 g/dl (14.0-17.9); LYMPHOCYTES # (AUTO) 0.9 X10'3 (1.1-4.8); LYMPHOCYTES % (AUTO) 11.6 % (21-51); MEAN CORPUSCULAR HEMOGLOBIN 32.8 PG (27.0-31.0); MEAN CORPUSCULAR HGB CONC 34.6 % (33.0-36.5); MEAN CORPUSCULAR VOLUME 94.8 FL (78-98); MEAN PLATELET VOLUME 7.3 FL (7.4-10.4); MONOCYTES # (AUTO) 0.6 X10'3 (0-0.9); MONOCYTES % (AUTO) 7.7 % (2-12); PLATELET COUNT 123 X10'3 (140-440); RED BLOOD COUNT 3.87 X10'6 (4.70-6.10); RED CELL DISTRIBUTION WIDTH 16.3 % (11.5-14.5); WHITE BLOOD COUNT 7.9 X10'3 (4.5-11.0)
[2018-04-30 05:40] LABS: ALANINE AMINOTRANSFERASE 16 U/L (12-78); ALBUMIN 2.8 G/DL (3.4-5.0); ALBUMIN/GLOBULIN RATIO 0.7 (1.1-1.5); ALKALINE PHOSPHATASE 101 IU/L (46-116); ANION GAP 17 (8-16); ASPARTATE AMINO TRANSFERASE 21 U/L (10-37); BILIRUBIN,TOTAL 1.2 MG/DL (0.1-1.0); BLOOD UREA NITROGEN 73 MG/DL (7-18); BUN/CREATININE RATIO 8.9 (5.4-32.0); CALCIUM 7.6 MG/DL (8.5-10.1); CHLORIDE 97 MMOL/L (99-107); CREATININE 8.19 MG/DL (0.60-1.10); GLUCOSE 151 MG/DL (70-104); MAGNESIUM 2.3 MG/DL (1.5-2.4); PHOSPHORUS 8.8 MG/DL (2.3-4.5); SODIUM 138 MMOL/L (135-145); TOTAL CARBON DIOXIDE 24.1 MMOL/L (24-32); TOTAL PROTEIN 6.6 G/DL (6.4-8.2); eGFR 7 ML/MIN
[2018-04-30] MEDS: MESSAGE TO NURSING SQ NR (08:00)
[2018-04-30] MEDS: hydrALAZINE 20mg/ml inj. IV PRN ×3 (08:09→23:40)
[2018-04-30 12:02] LABS: BASOPHILS # (AUTO) 0.1 X10'3 (0-0.2); BASOPHILS % (AUTO) 0.6 % (0-1); EOSINOPHILS # (AUTO) 0.4 X10'3 (0-0.9); EOSINOPHILS % (AUTO) 4.7 % (0-6); HEMATOCRIT 37.9 % (42.0-52.0); HEMOGLOBIN 13.1 g/dl (14.0-17.9); LYMPHOCYTES # (AUTO) 1.3 X10'3 (1.1-4.8); LYMPHOCYTES % (AUTO) 14.7 % (21-51); MEAN CORPUSCULAR HEMOGLOBIN 32.7 PG (27.0-31.0); MEAN CORPUSCULAR HGB CONC 34.6 % (33.0-36.5); MEAN CORPUSCULAR VOLUME 94.6 FL (78-98); MEAN PLATELET VOLUME 6.8 FL (7.4-10.4); MONOCYTES # (AUTO) 0.7 X10'3 (0-0.9); MONOCYTES % (AUTO) 8.3 % (2-12); NEUTROPHILS # (AUTO) 6.4 X10'3 (1.8-7.7); NEUTROPHILS % (AUTO) 71.7 % (42-75); PLATELET COUNT 147 X10'3 (140-440); RED CELL DISTRIBUTION WIDTH 15.9 % (11.5-14.5)
[2018-04-30] MEDS ORDERED: fentaNYL/PF 50MCG/1 ML 2ML syringe ONE ×2 (12:24→14:04)
[2018-04-30] MEDS ORDERED: MIDAZolam 5mg/5ml vial ONE ×2 (12:25→14:04)
[2018-04-30 17:27] LABS: BASOPHILS # (AUTO) 0.1 X10'3 (0-0.2); BASOPHILS % (AUTO) 0.7 % (0-1); EOSINOPHILS # (AUTO) 0.5 X10'3 (0-0.9); EOSINOPHILS % (AUTO) 5.8 % (0-6); HEMATOCRIT 34.4 % (42.0-52.0); HEMOGLOBIN 11.9 g/dl (14.0-17.9); LYMPHOCYTES # (AUTO) 1.4 X10'3 (1.1-4.8); LYMPHOCYTES % (AUTO) 17.3 % (21-51); MEAN CORPUSCULAR HEMOGLOBIN 32.2 PG (27.0-31.0); MEAN CORPUSCULAR HGB CONC 34.5 % (33.0-36.5); MEAN CORPUSCULAR VOLUME 93.3 FL (78-98); MONOCYTES # (AUTO) 0.7 X10'3 (0-0.9); MONOCYTES % (AUTO) 9.3 % (2-12); NEUTROPHILS # (AUTO) 5.2 X10'3 (1.8-7.7); NEUTROPHILS % (AUTO) 66.9 % (42-75); PLATELET COUNT 126 X10'3 (140-440); RED BLOOD COUNT 3.68 X10'6 (4.70-6.10); RED CELL DISTRIBUTION WIDTH 16.2 % (11.5-14.5); WHITE BLOOD COUNT 7.8 X10'3 (4.5-11.0)
[2018-04-30] MEDS: pantoprazole 40mg Tablet.DR PO SCH (19:31)
[2018-04-30] MEDS ORDERED: HYDROcodone/acetaminophen 10/325mg tab PO PRN (21:10)
[2018-04-30] MEDS: metoprolol tartrate 50mg tablet PO SCH (21:31)
[2018-04-30] MEDS: temazepam 15mg capsule PO SCH (21:31)
[2018-04-30] MEDS: furosemide 40mg tablet PO SCH (21:31)
[2018-04-30] MEDS: insulin glargine (Lantus) pen - multi-dose SQ SCH (21:36)
[2018-05-01] VITALS (7 sets, daily range): BP systolic 149–183; BP diastolic 64–80
[2018-05-01 00:17] LABS: BASOPHILS % (AUTO) 0.5 % (0-1); EOSINOPHILS # (AUTO) 0.5 X10'3 (0-0.9); EOSINOPHILS % (AUTO) 6.3 % (0-6); HEMATOCRIT 31.8 % (42.0-52.0); HEMOGLOBIN 10.9 g/dl (14.0-17.9); LYMPHOCYTES # (AUTO) 1.2 X10'3 (1.1-4.8); LYMPHOCYTES % (AUTO) 15.9 % (21-51); MEAN CORPUSCULAR HEMOGLOBIN 32.4 PG (27.0-31.0); MEAN CORPUSCULAR HGB CONC 34.4 % (33.0-36.5); MEAN CORPUSCULAR VOLUME 94.1 FL (78-98); MEAN PLATELET VOLUME 6.9 FL (7.4-10.4); MONOCYTES # (AUTO) 0.7 X10'3 (0-0.9); MONOCYTES % (AUTO) 9.2 % (2-12); NEUTROPHILS % (AUTO) 68.1 % (42-75); PLATELET COUNT 124 X10'3 (140-440); RED BLOOD COUNT 3.38 X10'6 (4.70-6.10); WHITE BLOOD COUNT 7.3 X10'3 (4.5-11.0)
[2018-05-01 05:42] LABS: BASOPHILS % (AUTO) 0.5 % (0-1); EOSINOPHILS # (AUTO) 0.6 X10'3 (0-0.9); HEMATOCRIT 32.7 % (42.0-52.0); HEMOGLOBIN 11.4 g/dl (14.0-17.9); LYMPHOCYTES # (AUTO) 1.5 X10'3 (1.1-4.8); LYMPHOCYTES % (AUTO) 17.1 % (21-51); MEAN CORPUSCULAR HEMOGLOBIN 32.7 PG (27.0-31.0); MEAN CORPUSCULAR HGB CONC 34.9 % (33.0-36.5); MEAN CORPUSCULAR VOLUME 93.8 FL (78-98); MEAN PLATELET VOLUME 7.2 FL (7.4-10.4); MONOCYTES % (AUTO) 10.7 % (2-12); NEUTROPHILS # (AUTO) 5.8 X10'3 (1.8-7.7); NEUTROPHILS % (AUTO) 64.7 % (42-75); PLATELET COUNT 134 X10'3 (140-440); RED BLOOD COUNT 3.49 X10'6 (4.70-6.10); RED CELL DISTRIBUTION WIDTH 16.1 % (11.5-14.5)
[2018-05-01 07:39] LABS: ALANINE AMINOTRANSFERASE 21 U/L (12-78); ALBUMIN 2.7 G/DL (3.4-5.0); ALBUMIN/GLOBULIN RATIO 0.8 (1.1-1.5); ALKALINE PHOSPHATASE 96 IU/L (46-116); ANION GAP 14 (8-16); ASPARTATE AMINO TRANSFERASE 16 U/L (10-37); BILIRUBIN,TOTAL 0.8 MG/DL (0.1-1.0); BLOOD UREA NITROGEN 96 MG/DL (7-18); BUN/CREATININE RATIO 9.3 (5.4-32.0); CALCIUM 7.3 MG/DL (8.5-10.1); CHLORIDE 98 MMOL/L (99-107); CREATININE 10.31 MG/DL (0.60-1.10); GLUCOSE 164 MG/DL (70-104); MAGNESIUM 2.5 MG/DL (1.5-2.4); POTASSIUM 4.6 MMOL/L (3.5-5.1); SODIUM 134 MMOL/L (135-145); TOTAL CARBON DIOXIDE 21.8 MMOL/L (24-32); TOTAL PROTEIN 6.3 G/DL (6.4-8.2); eGFR 5 ML/MIN
[2018-05-01 07:50] LABS: PHOSPHORUS 10.3 MG/DL (2.3-4.5)
[2018-05-01] MEDS ORDERED: sevelamer carbonate 800mg tablet PO SCH (08:00)
[2018-05-01] MEDS: folic acid 1mg tablet PO SCH (08:15)
[2018-05-01] MEDS: furosemide 40mg tablet PO SCH ×2 (08:15→20:00)
[2018-05-01] MEDS: amLODIPine 5mg tablet PO SCH (08:15)
[2018-05-01] MEDS: folic acid/vitamin B complex w/vitamin C 0.8mg tablet PO SCH (08:15)
[2018-05-01] MEDS: losartan 50mg tablet PO SCH (08:15)
[2018-05-01] MEDS: metoprolol tartrate 50mg tablet PO SCH ×2 (08:18→20:35)
[2018-05-01] MEDS: pantoprazole 40mg Tablet.DR PO SCH ×2 (08:19→20:36)
[2018-05-01] MEDS: metolazone 2.5mg tablet PO SCH (08:20)
[2018-05-01] MEDS: proMETHazine 25mg tablet PO PRN ×2 (08:20→19:09)
[2018-05-01] MEDS ORDERED: epoetin 20,000 units/ml inj IV ONE (08:40)
[2018-05-01] MEDS ORDERED: albumin (human) 25% 100ml IV 100 ML IV PRN (08:40)
[2018-05-01 09:14] LABS: BASOPHILS # (AUTO) 0.1 X10'3 (0-0.2); BASOPHILS % (AUTO) 0.6 % (0-1); EOSINOPHILS # (AUTO) 0.7 X10'3 (0-0.9); EOSINOPHILS % (AUTO) 7.6 % (0-6); HEMATOCRIT 34.1 % (42.0-52.0); HEMOGLOBIN 11.8 g/dl (14.0-17.9); LYMPHOCYTES # (AUTO) 1.1 X10'3 (1.1-4.8); LYMPHOCYTES % (AUTO) 11.9 % (21-51); MEAN CORPUSCULAR HEMOGLOBIN 32.6 PG (27.0-31.0); MEAN CORPUSCULAR HGB CONC 34.6 % (33.0-36.5); MEAN CORPUSCULAR VOLUME 94.4 FL (78-98); MEAN PLATELET VOLUME 7.2 FL (7.4-10.4); MONOCYTES # (AUTO) 0.8 X10'3 (0-0.9); MONOCYTES % (AUTO) 8.5 % (2-12); NEUTROPHILS # (AUTO) 6.5 X10'3 (1.8-7.7); NEUTROPHILS % (AUTO) 71.4 % (42-75); PLATELET COUNT 140 X10'3 (140-440); RED BLOOD COUNT 3.62 X10'6 (4.70-6.10); RED CELL DISTRIBUTION WIDTH 16.3 % (11.5-14.5); WHITE BLOOD COUNT 9.1 X10'3 (4.5-11.0)
[2018-05-01] MEDS: MESSAGE TO NURSING SQ NR (10:00)
[2018-05-01] MEDS: sevelamer carbonate 800mg tablet PO SCH ×2 (12:56→17:41)
[2018-05-01] MEDS: HYDROmorphone 1 mg/ml syringe IV PRN ×2 (12:58→19:09)
[2018-05-01] MEDS: hydrALAZINE 20mg/ml inj. IV PRN (14:05)
[2018-05-01 17:15] LABS: BASOPHILS % (AUTO) 0.5 % (0-1); EOSINOPHILS # (AUTO) 0.6 X10'3 (0-0.9); EOSINOPHILS % (AUTO) 6.9 % (0-6); HEMATOCRIT 35.8 % (42.0-52.0); HEMOGLOBIN 12.1 g/dl (14.0-17.9); LYMPHOCYTES % (AUTO) 11.7 % (21-51); MEAN CORPUSCULAR HEMOGLOBIN 32.5 PG (27.0-31.0); MEAN CORPUSCULAR HGB CONC 33.8 % (33.0-36.5); MEAN CORPUSCULAR VOLUME 96.1 FL (78-98); MEAN PLATELET VOLUME 7.1 FL (7.4-10.4); MONOCYTES # (AUTO) 0.6 X10'3 (0-0.9); MONOCYTES % (AUTO) 7.1 % (2-12); NEUTROPHILS # (AUTO) 6.4 X10'3 (1.8-7.7); NEUTROPHILS % (AUTO) 73.8 % (42-75); PLATELET COUNT 148 X10'3 (140-440); RED BLOOD COUNT 3.73 X10'6 (4.70-6.10); RED CELL DISTRIBUTION WIDTH 16.2 % (11.5-14.5); WHITE BLOOD COUNT 8.7 X10'3 (4.5-11.0)
[2018-05-01 20:53] LABS: BASOPHILS # (AUTO) 0.1 X10'3 (0-0.2); EOSINOPHILS # (AUTO) 0.6 X10'3 (0-0.9); EOSINOPHILS % (AUTO) 7.2 % (0-6); HEMATOCRIT 32.9 % (42.0-52.0); HEMOGLOBIN 11.2 g/dl (14.0-17.9); LYMPHOCYTES # (AUTO) 0.9 X10'3 (1.1-4.8); MEAN CORPUSCULAR HEMOGLOBIN 32.4 PG (27.0-31.0); MEAN CORPUSCULAR VOLUME 95.4 FL (78-98); MONOCYTES # (AUTO) 0.6 X10'3 (0-0.9); MONOCYTES % (AUTO) 8.1 % (2-12); NEUTROPHILS # (AUTO) 5.5 X10'3 (1.8-7.7); NEUTROPHILS % (AUTO) 71.7 % (42-75); PLATELET COUNT 139 X10'3 (140-440); RED BLOOD COUNT 3.45 X10'6 (4.70-6.10); RED CELL DISTRIBUTION WIDTH 15.8 % (11.5-14.5); WHITE BLOOD COUNT 7.7 X10'3 (4.5-11.0)
[2018-05-01] MEDS: temazepam 15mg capsule PO SCH (21:06)
[2018-05-01] MEDS: insulin glargine (Lantus) pen - multi-dose SQ SCH (21:10)
[2018-05-02] VITALS (8 sets, daily range): BP systolic 126–186; BP diastolic 59–84
[2018-05-02] MEDS: HYDROmorphone 1 mg/ml syringe IV PRN ×4 (04:28→21:56)
[2018-05-02] MEDS: proMETHazine 25mg tablet PO PRN ×2 (05:23→19:02)
[2018-05-02] MEDS ORDERED: pantoprazole 40mg Tablet.DR PO SCH (07:30)
[2018-05-02] MEDS: folic acid/vitamin B complex w/vitamin C 0.8mg tablet PO SCH ×2 (07:38→08:00)
[2018-05-02] MEDS: metolazone 2.5mg tablet PO SCH ×2 (07:38→08:00)
[2018-05-02] MEDS: sevelamer carbonate 800mg tablet PO SCH ×3 (07:38→17:47)
[2018-05-02] MEDS: pantoprazole 40mg Tablet.DR PO SCH ×3 (07:39→21:49)
[2018-05-02] MEDS: amLODIPine 5mg tablet PO SCH ×2 (07:39→08:00)
[2018-05-02] MEDS: metoprolol tartrate 50mg tablet PO SCH ×3 (07:39→20:00)
[2018-05-02] MEDS: losartan 50mg tablet PO SCH ×2 (07:39→08:00)
[2018-05-02] MEDS: folic acid 1mg tablet PO SCH ×2 (07:40→08:00)
[2018-05-02] MEDS: furosemide 40mg tablet PO SCH ×3 (07:40→20:00)
[2018-05-02] MEDS: ondansetron/PF 4mg/2ml inj IV PRN ×3 (07:59→21:42)
[2018-05-02 08:33] LABS: BASOPHILS % (AUTO) 0.5 % (0-1); EOSINOPHILS # (AUTO) 0.9 X10'3 (0-0.9); EOSINOPHILS % (AUTO) 8.9 % (0-6); HEMATOCRIT 35.7 % (42.0-52.0); HEMOGLOBIN 12.3 g/dl (14.0-17.9); LYMPHOCYTES # (AUTO) 1.6 X10'3 (1.1-4.8); LYMPHOCYTES % (AUTO) 16.2 % (21-51); MEAN CORPUSCULAR HEMOGLOBIN 32.8 PG (27.0-31.0); MEAN CORPUSCULAR HGB CONC 34.3 % (33.0-36.5); MEAN CORPUSCULAR VOLUME 95.7 FL (78-98); MEAN PLATELET VOLUME 7.1 FL (7.4-10.4); MONOCYTES # (AUTO) 0.8 X10'3 (0-0.9); MONOCYTES % (AUTO) 8.4 % (2-12); NEUTROPHILS # (AUTO) 6.5 X10'3 (1.8-7.7); PLATELET COUNT 165 X10'3 (140-440); RED BLOOD COUNT 3.73 X10'6 (4.70-6.10); RED CELL DISTRIBUTION WIDTH 15.8 % (11.5-14.5); WHITE BLOOD COUNT 9.8 X10'3 (4.5-11.0)
[2018-05-02 09:30] LABS: ALANINE AMINOTRANSFERASE 21 U/L (12-78); ALBUMIN/GLOBULIN RATIO 0.8 (1.1-1.5); ALKALINE PHOSPHATASE 117 IU/L (46-116); ANION GAP 10 (8-16); ASPARTATE AMINO TRANSFERASE 20 U/L (10-37); BLOOD UREA NITROGEN 53 MG/DL (7-18); BUN/CREATININE RATIO 7.5 (5.4-32.0); CALCIUM 7.6 MG/DL (8.5-10.1); CHLORIDE 99 MMOL/L (99-107); GLUCOSE 166 MG/DL (70-104); MAGNESIUM 2.1 MG/DL (1.5-2.4); PHOSPHORUS 6.4 MG/DL (2.3-4.5); POTASSIUM 4.3 MMOL/L (3.5-5.1); SODIUM 136 MMOL/L (135-145); TOTAL CARBON DIOXIDE 27.4 MMOL/L (24-32); eGFR 8 ML/MIN
[2018-05-02] MEDS: MESSAGE TO NURSING SQ NR (10:14)
[2018-05-02] MEDS: labetalol 20mg/4ml (5mg/ml) syringe IV PRN (21:54)
[2018-05-02] MEDS: temazepam 15mg capsule PO SCH (22:16)
[2018-05-02] MEDS: insulin glargine (Lantus) pen - multi-dose SQ SCH (22:20)
[2018-05-03 02:00] VITALS: BP 158/61
[2018-05-03 06:00] VITALS: BP 120/72
[2018-05-03] MEDS: ondansetron/PF 4mg/2ml inj IV PRN ×2 (07:06→14:48)
[2018-05-03] MEDS: HYDROmorphone 1 mg/ml syringe IV PRN ×4 (07:10→21:53)
[2018-05-03 07:13] LABS: BASOPHILS % (AUTO) 0.5 % (0-1); EOSINOPHILS # (AUTO) 0.6 X10'3 (0-0.9); EOSINOPHILS % (AUTO) 8.8 % (0-6); HEMATOCRIT 28.6 % (42.0-52.0); LYMPHOCYTES # (AUTO) 1.1 X10'3 (1.1-4.8); LYMPHOCYTES % (AUTO) 15.5 % (21-51); MEAN CORPUSCULAR HEMOGLOBIN 32.8 PG (27.0-31.0); MEAN CORPUSCULAR HGB CONC 34.8 % (33.0-36.5); MEAN CORPUSCULAR VOLUME 94.4 FL (78-98); MONOCYTES # (AUTO) 0.6 X10'3 (0-0.9); MONOCYTES % (AUTO) 7.7 % (2-12); NEUTROPHILS % (AUTO) 67.5 % (42-75); PLATELET COUNT 122 X10'3 (140-440); RED BLOOD COUNT 3.03 X10'6 (4.70-6.10); RED CELL DISTRIBUTION WIDTH 15.5 % (11.5-14.5); WHITE BLOOD COUNT 7.4 X10'3 (4.5-11.0)
[2018-05-03 07:41] LABS: ALANINE AMINOTRANSFERASE 20 U/L (12-78); ALBUMIN 2.6 G/DL (3.4-5.0); ALBUMIN/GLOBULIN RATIO 0.8 (1.1-1.5); ALKALINE PHOSPHATASE 85 IU/L (46-116); ANION GAP 10 (8-16); ASPARTATE AMINO TRANSFERASE 16 U/L (10-37); BILIRUBIN,TOTAL 0.8 MG/DL (0.1-1.0); BLOOD UREA NITROGEN 64 MG/DL (7-18); BUN/CREATININE RATIO 7.7 (5.4-32.0); CALCIUM 7.5 MG/DL (8.5-10.1); CHLORIDE 98 MMOL/L (99-107); CREATININE 8.35 MG/DL (0.60-1.10); GLUCOSE 115 MG/DL (70-104); MAGNESIUM 2.2 MG/DL (1.5-2.4); PHOSPHORUS 7.1 MG/DL (2.3-4.5); POTASSIUM 4.2 MMOL/L (3.5-5.1); SODIUM 136 MMOL/L (135-145); TOTAL CARBON DIOXIDE 27.6 MMOL/L (24-32); TOTAL PROTEIN 5.8 G/DL (6.4-8.2); eGFR 6 ML/MIN
[2018-05-03] MEDS: metoprolol tartrate 50mg tablet PO SCH ×2 (08:00→20:04)
[2018-05-03] MEDS: sevelamer carbonate 800mg tablet PO SCH ×3 (08:00→18:00)
[2018-05-03] MEDS: amLODIPine 5mg tablet PO SCH (08:00)
[2018-05-03] MEDS: metolazone 2.5mg tablet PO SCH (08:00)
[2018-05-03] MEDS: losartan 50mg tablet PO SCH (08:00)
[2018-05-03] MEDS: furosemide 40mg tablet PO SCH ×2 (08:31→20:03)
[2018-05-03] MEDS: pantoprazole 40mg Tablet.DR PO SCH ×2 (08:31→20:04)
[2018-05-03] MEDS: folic acid 1mg tablet PO SCH (08:31)
[2018-05-03] MEDS: folic acid/vitamin B complex w/vitamin C 0.8mg tablet PO SCH (08:32)
[2018-05-03] MEDS: MESSAGE TO NURSING SQ NR (10:00)
[2018-05-03 11:00] VITALS: BP 171/83
[2018-05-03] MEDS: proMETHazine 25mg tablet PO PRN (11:06)
[2018-05-03] MEDS: docusate sodium 100mg/10ml UD cup PO SCH ×2 (11:16→20:04)
[2018-05-03] MEDS: polyethylene glycol 3350 17gm powd pack PO SCH (12:32)
[2018-05-03] MEDS: labetalol 20mg/4ml (5mg/ml) syringe IV PRN (14:50)
[2018-05-03 15:00] VITALS: BP 160/66
[2018-05-03 19:00] VITALS: BP 174/69
[2018-05-03] MEDS: temazepam 15mg capsule PO SCH (21:31)
[2018-05-03] MEDS: insulin glargine (Lantus) pen - multi-dose SQ SCH (21:37)
[2018-05-03 23:00] VITALS: BP 159/69
[2018-05-04] VITALS (7 sets, daily range): BP systolic 138–182; BP diastolic 59–88
[2018-05-04] MEDS: ondansetron/PF 4mg/2ml inj IV PRN ×3 (04:10→19:40)
[2018-05-04 05:17] LABS: BASOPHILS # (AUTO) 0.1 X10'3 (0-0.2); BASOPHILS % (AUTO) 0.7 % (0-1); EOSINOPHILS # (AUTO) 0.9 X10'3 (0-0.9); EOSINOPHILS % (AUTO) 11.3 % (0-6); HEMATOCRIT 26.9 % (42.0-52.0); HEMOGLOBIN 9.3 g/dl (14.0-17.9); LYMPHOCYTES # (AUTO) 1.5 X10'3 (1.1-4.8); LYMPHOCYTES % (AUTO) 17.5 % (21-51); MEAN CORPUSCULAR HEMOGLOBIN 32.7 PG (27.0-31.0); MEAN CORPUSCULAR HGB CONC 34.6 % (33.0-36.5); MEAN CORPUSCULAR VOLUME 94.6 FL (78-98); MEAN PLATELET VOLUME 6.9 FL (7.4-10.4); MONOCYTES # (AUTO) 0.8 X10'3 (0-0.9); MONOCYTES % (AUTO) 9.6 % (2-12); NEUTROPHILS # (AUTO) 5.1 X10'3 (1.8-7.7); NEUTROPHILS % (AUTO) 60.9 % (42-75); PLATELET COUNT 133 X10'3 (140-440); RED BLOOD COUNT 2.84 X10'6 (4.70-6.10); RED CELL DISTRIBUTION WIDTH 15.3 % (11.5-14.5); WHITE BLOOD COUNT 8.3 X10'3 (4.5-11.0)
[2018-05-04 05:38] LABS: ALANINE AMINOTRANSFERASE 14 U/L (12-78); ALBUMIN 2.5 G/DL (3.4-5.0); ALBUMIN/GLOBULIN RATIO 0.7 (1.1-1.5); ALKALINE PHOSPHATASE 81 IU/L (46-116); ANION GAP 10 (8-16); ASPARTATE AMINO TRANSFERASE 19 U/L (10-37); BILIRUBIN,TOTAL 1.2 MG/DL (0.1-1.0); BLOOD UREA NITROGEN 73 MG/DL (7-18); BUN/CREATININE RATIO 7.6 (5.4-32.0); CALCIUM 7.4 MG/DL (8.5-10.1); CHLORIDE 96 MMOL/L (99-107); CREATININE 9.65 MG/DL (0.60-1.10); GLUCOSE 88 MG/DL (70-104); MAGNESIUM 2.2 MG/DL (1.5-2.4); PHOSPHORUS 7.9 MG/DL (2.3-4.5); SODIUM 133 MMOL/L (135-145); TOTAL CARBON DIOXIDE 26.9 MMOL/L (24-32); TOTAL PROTEIN 5.9 G/DL (6.4-8.2); eGFR 5 ML/MIN
[2018-05-04] MEDS: HYDROmorphone 1 mg/ml syringe IV PRN ×3 (07:01→16:35)
[2018-05-04] MEDS: proMETHazine 25mg tablet PO PRN (07:09)
[2018-05-04] MEDS: polyethylene glycol 3350 17gm powd pack PO SCH (07:10)
[2018-05-04] MEDS: docusate sodium 100mg/10ml UD cup PO SCH ×2 (07:33→19:22)
[2018-05-04] MEDS: folic acid 1mg tablet PO SCH (07:35)
[2018-05-04] MEDS: furosemide 40mg tablet PO SCH ×2 (07:35→19:20)
[2018-05-04] MEDS: pantoprazole 40mg Tablet.DR PO SCH (07:35)
[2018-05-04] MEDS: amLODIPine 5mg tablet PO SCH (07:37)
[2018-05-04] MEDS: losartan 50mg tablet PO SCH (07:37)
[2018-05-04] MEDS: metoprolol tartrate 50mg tablet PO SCH ×2 (07:37→19:19)
[2018-05-04] MEDS: sevelamer carbonate 800mg tablet PO SCH ×3 (07:38→18:00)
[2018-05-04] MEDS: metolazone 2.5mg tablet PO SCH (07:38)
[2018-05-04] MEDS: folic acid/vitamin B complex w/vitamin C 0.8mg tablet PO SCH (08:00)
[2018-05-04] MEDS ORDERED: albumin (human) 25% 100ml IV 100 ML IV PRN (08:30)
[2018-05-04] MEDS ORDERED: epoetin 20,000 units/ml inj IV ONE (08:30)
[2018-05-04] MEDS: MESSAGE TO NURSING SQ NR (10:26)
[2018-05-04] MEDS: hydrALAZINE 20mg/ml inj. IV PRN (16:40)
[2018-05-04] MEDS ORDERED: amiodarone 150mg/dext, iso-os 100 ML IV ONE (17:20)
[2018-05-04] MEDS: NUT.TX.IMP.RENAL FXN,LAC-REDUC (Nepro) 237 ML VANILLA PO SCH (18:00)
[2018-05-04] MEDS: amiodarone/D5 360MG/200ML BAG 200 ML IV SCH ×2 (18:09→23:24)
[2018-05-04] MEDS: temazepam 15mg capsule PO SCH (21:21)
[2018-05-04] MEDS: insulin glargine (Lantus) pen - multi-dose SQ SCH (21:25)
[2018-05-05] VITALS (7 sets, daily range): BP systolic 144–198; BP diastolic 50–87
[2018-05-05] MEDS: amiodarone/D5 360MG/200ML BAG 200 ML IV SCH ×2 (00:54→11:32)
[2018-05-05] MEDS: ondansetron/PF 4mg/2ml inj IV PRN (02:54)
[2018-05-05 07:41] LABS: BASOPHILS % (AUTO) 0.4 % (0-1); EOSINOPHILS # (AUTO) 0.6 X10'3 (0-0.9); EOSINOPHILS % (AUTO) 7.8 % (0-6); HEMOGLOBIN 10.7 g/dl (14.0-17.9); LYMPHOCYTES % (AUTO) 12.8 % (21-51); MEAN CORPUSCULAR HEMOGLOBIN 32.5 PG (27.0-31.0); MEAN CORPUSCULAR HGB CONC 34.4 % (33.0-36.5); MEAN CORPUSCULAR VOLUME 94.3 FL (78-98); MEAN PLATELET VOLUME 6.7 FL (7.4-10.4); MONOCYTES # (AUTO) 0.6 X10'3 (0-0.9); MONOCYTES % (AUTO) 8.2 % (2-12); NEUTROPHILS # (AUTO) 5.3 X10'3 (1.8-7.7); NEUTROPHILS % (AUTO) 70.8 % (42-75); PLATELET COUNT 141 X10'3 (140-440); RED BLOOD COUNT 3.29 X10'6 (4.70-6.10); RED CELL DISTRIBUTION WIDTH 15.7 % (11.5-14.5); WHITE BLOOD COUNT 7.5 X10'3 (4.5-11.0)
[2018-05-05] MEDS: amLODIPine 5mg tablet PO SCH (07:43)
[2018-05-05] MEDS: sevelamer carbonate 800mg tablet PO SCH ×2 (07:43→13:00)
[2018-05-05] MEDS: metolazone 2.5mg tablet PO SCH (07:43)
[2018-05-05] MEDS: losartan 50mg tablet PO SCH (07:44)
[2018-05-05] MEDS: folic acid 1mg tablet PO SCH (07:44)
[2018-05-05] MEDS: folic acid/vitamin B complex w/vitamin C 0.8mg tablet PO SCH (07:44)
[2018-05-05] MEDS: metoprolol tartrate 50mg tablet PO SCH (07:44)
[2018-05-05] MEDS: furosemide 40mg tablet PO SCH (07:44)
[2018-05-05] MEDS: docusate sodium 100mg/10ml UD cup PO SCH (07:45)
[2018-05-05] MEDS: polyethylene glycol 3350 17gm powd pack PO SCH (07:45)
[2018-05-05 07:56] LABS: ALANINE AMINOTRANSFERASE 21 U/L (12-78); ALBUMIN 2.8 G/DL (3.4-5.0); ALBUMIN/GLOBULIN RATIO 0.7 (1.1-1.5); ALKALINE PHOSPHATASE 113 IU/L (46-116); ANION GAP 7 (8-16); ASPARTATE AMINO TRANSFERASE 24 U/L (10-37); BLOOD UREA NITROGEN 38 MG/DL (7-18); BUN/CREATININE RATIO 6.2 (5.4-32.0); CALCIUM 7.9 MG/DL (8.5-10.1); CHLORIDE 98 MMOL/L (99-107); CREATININE 6.12 MG/DL (0.60-1.10); GLUCOSE 71 MG/DL (70-104); MAGNESIUM 2.2 MG/DL (1.5-2.4); PHOSPHORUS 5.1 MG/DL (2.3-4.5); POTASSIUM 4.1 MMOL/L (3.5-5.1); SODIUM 134 MMOL/L (135-145); TOTAL CARBON DIOXIDE 28.8 MMOL/L (24-32); TOTAL PROTEIN 6.7 G/DL (6.4-8.2); eGFR 9 ML/MIN
[2018-05-05] MEDS ORDERED: pantoprazole 40mg Tablet.DR PO SCH (08:00)
[2018-05-05] MEDS: NUT.TX.IMP.RENAL FXN,LAC-REDUC (Nepro) 237 ML VANILLA PO SCH ×2 (08:00→13:00)
[2018-05-05] MEDS: MESSAGE TO NURSING SQ NR (10:22)
[2018-05-05] MEDS ORDERED: MESSAGE TO PHARMACY PO ONE (13:55)
[2018-05-05] MEDS ORDERED: dextrose ORAL solution 15 GM/59 ML bottle PO PRN ×2 (13:55)
[2018-05-05] MEDS ORDERED: dextrose 50%-water 50ml dispensing syringe IV PRN ×2 (13:55)
[2018-05-05] MEDS ORDERED: glucagon, human recombinant 1mg kit SUBCUT PRN (13:55)
[2018-05-05] MEDS ORDERED: insulin Lispro (HumaLOG) vial - multi-dose SQ SCH (13:55)
[2018-05-05] MEDS ORDERED: DIPH-423 PO (14:19)
[2018-05-05] MEDS ORDERED: insulin glargine (Lantus) pen - multi-dose SQ SCH (21:00)
== END 2018-05-05 15:15 | disposition home or self-care (01) | DRG 377 ==
LOC: ER 09:59 → ED HOLD 13:42 → EDBEDREQ 16:40 → PCU 3S 17:15 → CMPBEDREQ 19:48
PROVIDERS: ADMIT Internal Medicine Critical Care Medicine; ATTEND Internal Medicine Critical Care Medicine
PROC: 0DJ08ZZ Inspection of Upper Intestinal Tract, Via Natural or Artificial Opening Endoscopic (ICD-10-PCS; principal; 2018-04-30)
PROC: 0DJD8ZZ Inspection of Lower Intestinal Tract, Via Natural or Artificial Opening Endoscopic (ICD-10-PCS; 2018-04-30)
PROC: 5A1D70Z Performance of Urinary Filtration, Intermittent, Less than 6 Hours Per Day (ICD-10-PCS; 2018-05-01)
PROC: 5A1D70Z Performance of Urinary Filtration, Intermittent, Less than 6 Hours Per Day (ICD-10-PCS; 2018-05-04)
DX: K92.1 Melena (principal); N18.6 End stage renal disease; Z94.4 Liver transplant status; K59.03 Drug induced constipation; T50.995A Adverse effect of other drugs, medicaments and biological substances, initial encounter; D64.9 Anemia, unspecified; E11.22 Type 2 diabetes mellitus with diabetic chronic kidney disease; F17.200 Nicotine dependence, unspecified, uncomplicated; B19.20 Unspecified viral hepatitis C without hepatic coma; I48.2 Chronic atrial fibrillation; Z99.2 Dependence on renal dialysis; Z79.01 Long term (current) use of anticoagulants; Z79.899 Other long term (current) drug therapy; Z79.4 Long term (current) use of insulin; Y92.89 Other specified places as the place of occurrence of the external cause
CPT/HCPCS: 36415; 45378; 71045; 80053; 82948; 83036; 83605; 83735; 84100; 84484; 85025; 85610; 85730; 86885; 86900; 86901; 86920; 87070; 93005; 96361; 96374; 96375; 96376; 97116; 97161; 99285; A4620; C9113; G0257; G0500; J0282; J0360; J0885; J1170; J1815; J2250; J2405; J2720; J3010; J3490; J7030; Q0169

== ENCOUNTER 2018-08-21 10:07 | Day surgery (SDC) | payer MEDICARE, MEDICAID ==
[~2018-08-21] VITALS: Ht 185.4 cm; Wt 81.5 kg
[~2018-08-21 10:07] MED LIST changes: +AMLO10TA13 PO; +DIPH-423 PO; +FOLI1TAB16 PO; +HYDR-3972 PO; +LIDOcaine 1% 30ml preserv. free vial SQ STA; +LOSA100T57 PO; -METO-477 PO; +METO100T14 PO; +METO5TAB7 PO; +SEVE800T8 PO; -VALS80TA32 PO
[2018-08-21 10:31] VITALS: BP 179/74
[2018-08-21] MEDS ORDERED: AMLO5TAB PO (10:33)
[2018-08-21] MEDS ORDERED: FURO80TA87 PO (10:33)
[2018-08-21 11:30] VITALS: BP 171/78
[2018-08-21 11:35] VITALS: BP 167/76
[2018-08-21 11:40] VITALS: BP 160/68
[2018-08-21 11:42] VITALS: BP 183/71
[2018-08-21 12:00] VITALS: BP 175/87
== END 2018-08-21 12:40 | disposition home or self-care (01) ==
LOC: SSTAY O 10:07
PROVIDERS: ATTEND Radiology Vascular & Interventional Radiology
DX: J90 Pleural effusion, not elsewhere classified (principal); E11.22 Type 2 diabetes mellitus with diabetic chronic kidney disease; I13.0 Hypertensive heart and chronic kidney disease with heart failure and stage 1 through stage 4 chronic kidney disease, or unspecified chronic kidney disease; N18.9 Chronic kidney disease, unspecified; I50.9 Heart failure, unspecified; I48.91 Unspecified atrial fibrillation; M19.90 Unspecified osteoarthritis, unspecified site; F19.11 Other psychoactive substance abuse, in remission; F17.210 Nicotine dependence, cigarettes, uncomplicated; Z87.01 Personal history of pneumonia (recurrent); Z87.09 Personal history of other diseases of the respiratory system; Z86.19 Personal history of other infectious and parasitic diseases; Z87.19 Personal history of other diseases of the digestive system; Z90.49 Acquired absence of other specified parts of digestive tract; Z94.4 Liver transplant status; Z86.79 Personal history of other diseases of the circulatory system; Z99.2 Dependence on renal dialysis; Z98.890 Other specified postprocedural states; Z79.899 Other long term (current) drug therapy
CPT/HCPCS: 32555; 71045; J3490

== ENCOUNTER 2018-10-12 17:22 | Inpatient (IN) | payer MEDICARE, MEDICAID ==
[~2018-10-12] VITALS: Ht 185.4 cm; Wt 65.0 kg
[~2018-10-12 17:22] MED LIST changes: -AMLO10TA13 PO; +AMLO5TAB PO; -DIPH-423 PO; -FOLI1TAB16 PO; -FURO80TA3 PO; +FURO80TA87 PO; -HYDR-3972 PO; -LANTUS SQ; -LIDOcaine 1% 30ml preserv. free vial SQ STA; -METO5TAB7 PO; -SEVE800T8 PO; -TEMA30CA5 PO
[2018-10-12 18:38] LABS: BASOPHILS % (AUTO) 0.5 % (0-1); EOSINOPHILS # (AUTO) 0.4 X10'3 (0-0.9); EOSINOPHILS % (AUTO) 5.7 % (0-6); HEMOGLOBIN 7.3 g/dl (14.0-17.9); LYMPHOCYTES # (AUTO) 0.9 X10'3 (1.1-4.8); LYMPHOCYTES % (AUTO) 12.2 % (21-51); MEAN CORPUSCULAR HEMOGLOBIN 33.7 PG (27.0-31.0); MEAN CORPUSCULAR HGB CONC 34.4 g/dL (33.0-36.5); MEAN CORPUSCULAR VOLUME 98.1 FL (78-98); MEAN PLATELET VOLUME 6.6 FL (7.4-10.4); MONOCYTES # (AUTO) 0.5 X10'3 (0-0.9); MONOCYTES % (AUTO) 6.5 % (2-12); NEUTROPHILS # (AUTO) 5.4 X10'3 (1.8-7.7); NEUTROPHILS % (AUTO) 75.1 % (42-75); PLATELET COUNT 175 X10'3 (140-440); RED BLOOD COUNT 2.17 X10'6 (4.70-6.10); RED CELL DISTRIBUTION WIDTH 14.3 % (11.5-14.5); WHITE BLOOD COUNT 7.2 X10'3 (4.5-11.0)
[2018-10-12 18:44] LABS: HEMATOCRIT 21.3 % (42.0-52.0)
[2018-10-12 18:50] LABS: ALANINE AMINOTRANSFERASE 23 U/L (12-78); ALBUMIN 2.8 G/DL (3.4-5.0); ALBUMIN/GLOBULIN RATIO 0.7 (1.1-1.5); ALKALINE PHOSPHATASE 201 IU/L (46-116); ANION GAP 5 (8-16); ASPARTATE AMINO TRANSFERASE 22 U/L (10-37); BILIRUBIN,TOTAL 0.6 MG/DL (0.1-1.0); BLOOD UREA NITROGEN 35 MG/DL (7-18); BUN/CREATININE RATIO 8.7 (5.4-32.0); CALCIUM 8.1 MG/DL (8.5-10.1); CHLORIDE 100 MMOL/L (99-107); CREATININE 4.03 MG/DL (0.60-1.10); GLUCOSE 217 MG/DL (70-104); POTASSIUM 4.2 MMOL/L (3.5-5.1); SODIUM 140 MMOL/L (135-145); TOTAL CARBON DIOXIDE 35.1 MMOL/L (24-32); TOTAL PROTEIN 6.6 G/DL (6.4-8.2); eGFR 15 ML/MIN
[2018-10-12 18:51] LABS: PROTHROMBIN TIME 10.5 SECONDS (9.0-12.0)
[2018-10-12] MEDS ORDERED: normal saline 1000ML IV soln IV ONE (19:05)
[2018-10-12] MEDS ORDERED: pantoprazole IV 80 MG in normal saline 100ml IV soln 100 ML IV ONE (19:05)
[2018-10-12] MEDS ORDERED: pantoprazole 40 MG vial IV ONE (19:05)
[2018-10-12] MEDS ORDERED: MULT-955 PO (19:35)
[2018-10-12] MEDS ORDERED: INSU100V9 SQ (19:35)
[2018-10-12] MEDS ORDERED: FOLI1TAB16 PO (19:35)
[2018-10-12] MEDS ORDERED: TEMA15CA5 PO (19:35)
--- NOTE | 2018-10-12 19:35 | NUR ---
Pt states that kenton makes him really confused
[2018-10-12 19:51] LABS: OCCULT BLOOD STOOL POSITIVE (Neg)
[2018-10-12] MEDS ORDERED: acetaminophen 325mg tablet PO PRN ×2 (20:10)
[2018-10-12] MEDS ORDERED: ondansetron/PF 4mg/2ml inj IV PRN (20:10)
[2018-10-12 20:24] LABS: % IRON SATURATION 85 % (11-46); IRON 183 UG/DL (53-167); TOTAL IRON BINDING CAPACITY 216 UG/DL (259-388)
--- NOTE | 2018-10-12 20:41 | NUR ---
Pt doing well. All covered up with the blankets. Getting blood from blood bank.
[2018-10-12 20:45] VITALS: BP 182/82
[2018-10-12 21:04] VITALS: BP 168/91
[2018-10-12] MEDS: temazepam 15mg capsule PO SCH (21:19)
--- NOTE | 2018-10-12 21:26 | NUR ---
PT doing very well with his transfusion, and he has not had any side effects.
[2018-10-12 21:48] VITALS: BP 192/86
--- NOTE | 2018-10-12 21:51 | NUR ---
Transfusion complete with no complications.
[2018-10-12] MEDS: pantoprazole 40MG/NS 100ML BAG 100 ML IV SCH (21:55)
--- NOTE | 2018-10-12 23:34 | NUR ---
Pt had blood under the tagaderm and oozing out from it. Taken down, cleansed and fresh tagaderm applied. Repositioned him in bed and tucked him in. He is comfortable. Removed his sat and bp cuff for now so he could be more comfortable.
[2018-10-13] VITALS (7 sets, daily range): BP systolic 149–190; BP diastolic 64–82
[2018-10-13] MEDS: pantoprazole 40MG/NS 100ML BAG 100 ML IV SCH ×5 (01:00→21:18)
--- NOTE | 2018-10-13 01:58 | NUR ---
He is sitiing up at Bedside. He said he is OK.
--- NOTE | 2018-10-13 02:09 | NUR ---
Since pt is awake, we changed out his stretcher for a hospital bed
--- NOTE | 2018-10-13 05:43 | NUR ---
Pt asleep on his right side. RR 22.
[2018-10-13 07:25] LABS: BASOPHILS % (AUTO) 0.4 % (0-1); EOSINOPHILS # (AUTO) 0.4 X10'3 (0-0.9); EOSINOPHILS % (AUTO) 5.7 % (0-6); HEMATOCRIT 23.4 % (42.0-52.0); HEMOGLOBIN 7.9 g/dl (14.0-17.9); LYMPHOCYTES # (AUTO) 1.1 X10'3 (1.1-4.8); LYMPHOCYTES % (AUTO) 15.8 % (21-51); MEAN CORPUSCULAR HEMOGLOBIN 33.3 PG (27.0-31.0); MEAN CORPUSCULAR VOLUME 97.9 FL (78-98); MEAN PLATELET VOLUME 6.3 FL (7.4-10.4); MONOCYTES # (AUTO) 0.4 X10'3 (0-0.9); MONOCYTES % (AUTO) 6.4 % (2-12); NEUTROPHILS % (AUTO) 71.7 % (42-75); PLATELET COUNT 149 X10'3 (140-440); RED BLOOD COUNT 2.39 X10'6 (4.70-6.10); RED CELL DISTRIBUTION WIDTH 14.7 % (11.5-14.5); WHITE BLOOD COUNT 6.9 X10'3 (4.5-11.0)
--- NOTE | 2018-10-13 07:25 | NUR ---
daughter ellis called and states she does not want him scoped as it is a waste of time and wants him to have a nuclear scan. i explained to daughter she needed to speak with admitting physician.
--- NOTE | 2018-10-13 07:30 | NUR ---
Patient in room PCU 3018. I have received report from SUSAN santoyo and had the opportunity to ask questions and assume patient care.
[2018-10-13 07:39] LABS: ALANINE AMINOTRANSFERASE 15 U/L (12-78); ALBUMIN 2.5 G/DL (3.4-5.0); ALBUMIN/GLOBULIN RATIO 0.7 (1.1-1.5); ALKALINE PHOSPHATASE 150 IU/L (46-116); ANION GAP 10 (8-16); ASPARTATE AMINO TRANSFERASE 20 U/L (10-37); BILIRUBIN,TOTAL 0.8 MG/DL (0.1-1.0); BLOOD UREA NITROGEN 48 MG/DL (7-18); BUN/CREATININE RATIO 8.9 (5.4-32.0); CALCIUM 7.7 MG/DL (8.5-10.1); CHLORIDE 103 MMOL/L (99-107); CREATININE 5.41 MG/DL (0.60-1.10); GLUCOSE 196 MG/DL (70-104); MAGNESIUM 1.8 MG/DL (1.5-2.4); PHOSPHORUS 4.2 MG/DL (2.3-4.5); POTASSIUM 4.7 MMOL/L (3.5-5.1); SODIUM 140 MMOL/L (135-145); TOTAL CARBON DIOXIDE 27.5 MMOL/L (24-32); TOTAL PROTEIN 5.9 G/DL (6.4-8.2); eGFR 11 ML/MIN
--- NOTE | 2018-10-13 07:50 | NUR ---
Pt here from the ER, placed on tele. Pts BP high morning BP meds will be administered. Will continue to monitor. Report from Jimmy santoyo in ER. Pt has no protonix gtt infusing called pharmacy already, will hang when it shows up.
[2018-10-13] MEDS ORDERED: non-formulary drug (Losartan Potassium 1 TAB) PO SCH (08:00)
[2018-10-13] MEDS ORDERED: non-formulary drug (Multivitamin (Daily Value) 1 TAB) PO SCH (08:00)
[2018-10-13] MEDS ORDERED: METOPROLOL TARTRATE 150 MG PO SCH (08:00)
[2018-10-13] MEDS ORDERED: metoprolol tartrate 50mg tablet PO SCH (08:00)
[2018-10-13] MEDS ORDERED: non-formulary drug (Amlodipine Besylate 2 TABLET) PO SCH (08:00)
[2018-10-13] MEDS: losartan 50mg tablet PO SCH (08:55)
[2018-10-13] MEDS: folic acid 1mg tablet PO SCH (08:55)
[2018-10-13] MEDS: multivitamins, therapeutics tablet PO SCH (08:56)
[2018-10-13] MEDS: amLODIPine 5mg tablet PO SCH (08:57)
[2018-10-13] MEDS: HYDROcodone/acetaminophen 5mg/325mg tablet PO PRN ×4 (08:57→19:48)
[2018-10-13] MEDS ORDERED: heparin sodium, porcine/PF 100unit/ml 5ML syringe ONE (12:37)
--- NOTE | 2018-10-13 13:00 | NUR ---
MD ANDERSON NOTIFIED OF HIGH BP NO NEW ORDERS YET HE WANTS TO ADJUST BP MEDS
[2018-10-13] MEDS ORDERED: LORazepam 1 MG tablet PO STA (14:08)
--- NOTE | 2018-10-13 14:15 | NUR ---
PT LEFT FOR RBC SCAM MEDICATED WITH ATIVAN PER MD ORDER FOR PTS SEVERE CLAUSTROPHOBIA
[2018-10-13] MEDS ORDERED: glucagon, human recombinant 1mg kit SUBCUT PRN (14:25)
[2018-10-13] MEDS ORDERED: dextrose 50%-water 50ml dispensing syringe IV PRN ×2 (14:25)
[2018-10-13] MEDS ORDERED: MESSAGE TO PHARMACY PO ONE (14:25)
[2018-10-13] MEDS ORDERED: dextrose ORAL solution 15 GM/59 ML bottle PO PRN ×2 (14:25)
[2018-10-13 15:11] LABS: HEMOGLOBIN A1C 7.5 % (4.5-6.2)
--- NOTE | 2018-10-13 16:13 | NUR ---
PT BACK FROM [facility], WILL CONTINUE TO MONITOR
--- NOTE | 2018-10-13 17:06 | NUR ---
MD ANDERSON NOTIFIED OF POSITIVE RBC SCAN, NO NEW ORDERS AT THIS TIME
[2018-10-13] MEDS ORDERED: PEG 3350/Na sulf,bicarb,Cl/KCl oral sol 4 liter bottle PO ONE (17:25)
--- NOTE | 2018-10-13 17:26 | NUR ---
MD ANDERSON NOTIFIED OF HIGH BP AGAIN HE WILL ADJUST MEDS ACCORDINGLY
[2018-10-13] MEDS: metoprolol tartrate 50mg tablet PO SCH ×2 (17:49→19:50)
--- NOTE | 2018-10-13 18:09 | NUR ---
Problems reprioritized. Patient report given, questions answered & plan of care reviewed with LINDA TANNER.
--- NOTE | 2018-10-13 18:30 | NUR ---
Patient in room PCU 3018. I have received report from Alisson MCKEON and had the opportunity to ask questions and assume patient care.
[2018-10-13] MEDS: insulin glargine (Lantus) pen - multi-dose SQ SCH (21:29)
[2018-10-13 22:28] LABS: HEMOGLOBIN 7.6 g/dl (14.0-17.9); MEAN CORPUSCULAR HEMOGLOBIN 33.2 PG (27.0-31.0); MEAN CORPUSCULAR HGB CONC 34.3 g/dL (33.0-36.5); MEAN CORPUSCULAR VOLUME 96.6 FL (78-98); MEAN PLATELET VOLUME 7.2 FL (7.4-10.4); PLATELET COUNT 142 X10'3 (140-440); RED BLOOD COUNT 2.28 X10'6 (4.70-6.10); RED CELL DISTRIBUTION WIDTH 15.3 % (11.5-14.5); WHITE BLOOD COUNT 6.6 X10'3 (4.5-11.0)
[2018-10-14] VITALS (12 sets, daily range): BP systolic 105–204; BP diastolic 66–92
--- NOTE | 2018-10-14 00:19 | NUR ---
patient has drank over half the go lytely. bowel movements appear to be clear of stool and are now just blood. patient stated he will drink a little more but then he doesn't want any more go lytely.
[2018-10-14] MEDS: pantoprazole 40MG/NS 100ML BAG 100 ML IV SCH ×3 (02:31→11:18)
[2018-10-14] MEDS: temazepam 15mg capsule PO SCH ×2 (03:20→20:49)
--- NOTE | 2018-10-14 03:20 | NUR ---
pt had been sleeping until recently. he wanted his sleeping pill now but will be going for procedure in a few hours and is in agreement with not getting it now.
[2018-10-14 05:47] LABS: ALANINE AMINOTRANSFERASE 20 U/L (12-78); ALBUMIN 2.7 G/DL (3.4-5.0); ALBUMIN/GLOBULIN RATIO 0.8 (1.1-1.5); ALKALINE PHOSPHATASE 145 IU/L (46-116); ANION GAP 12 (8-16); ASPARTATE AMINO TRANSFERASE 24 U/L (10-37); BILIRUBIN,TOTAL 0.9 MG/DL (0.1-1.0); BLOOD UREA NITROGEN 61 MG/DL (7-18); BUN/CREATININE RATIO 8.5 (5.4-32.0); CALCIUM 7.9 MG/DL (8.5-10.1); CHLORIDE 100 MMOL/L (99-107); CREATININE 7.21 MG/DL (0.60-1.10); GLUCOSE 191 MG/DL (70-104); MAGNESIUM 1.8 MG/DL (1.5-2.4); PHOSPHORUS 4.5 MG/DL (2.3-4.5); POTASSIUM 4.8 MMOL/L (3.5-5.1); SODIUM 138 MMOL/L (135-145); TOTAL PROTEIN 6.1 G/DL (6.4-8.2); eGFR 8 ML/MIN
--- NOTE | 2018-10-14 06:20 | NUR ---
Patient in room PCU 3018. I have received report from LINDA Ward and had the opportunity to ask questions and assume patient care.
[2018-10-14 06:23] LABS: BASOPHILS % (AUTO) 0.6 % (0-1); EOSINOPHILS # (AUTO) 0.7 X10'3 (0-0.9); EOSINOPHILS % (AUTO) 8.5 % (0-6); HEMOGLOBIN 7.2 g/dl (14.0-17.9); LYMPHOCYTES # (AUTO) 1.2 X10'3 (1.1-4.8); LYMPHOCYTES % (AUTO) 15.4 % (21-51); MEAN CORPUSCULAR HEMOGLOBIN 33.1 PG (27.0-31.0); MEAN CORPUSCULAR VOLUME 97.3 FL (78-98); MEAN PLATELET VOLUME 6.8 FL (7.4-10.4); MONOCYTES # (AUTO) 0.5 X10'3 (0-0.9); MONOCYTES % (AUTO) 6.6 % (2-12); NEUTROPHILS # (AUTO) 5.4 X10'3 (1.8-7.7); NEUTROPHILS % (AUTO) 68.9 % (42-75); PLATELET COUNT 165 X10'3 (140-440); RED BLOOD COUNT 2.16 X10'6 (4.70-6.10); RED CELL DISTRIBUTION WIDTH 15.3 % (11.5-14.5); WHITE BLOOD COUNT 7.8 X10'3 (4.5-11.0)
[2018-10-14] MEDS ORDERED: fentaNYL/PF 50MCG/1 ML 2ML syringe ONE (06:37)
[2018-10-14] MEDS ORDERED: MIDAZolam 5mg/5ml vial ONE (06:38)
[2018-10-14] MEDS: losartan 50mg tablet PO SCH (06:42)
[2018-10-14] MEDS: multivitamins, therapeutics tablet PO SCH (06:42)
[2018-10-14] MEDS: metoprolol tartrate 50mg tablet PO SCH ×2 (06:42→20:49)
--- NOTE | 2018-10-14 06:42 | NUR ---
Problems reprioritized. Patient report given, questions answered & plan of care reviewed with Alisson MCKEON.
[2018-10-14] MEDS: folic acid 1mg tablet PO SCH (06:43)
[2018-10-14] MEDS: amLODIPine 5mg tablet PO SCH (06:43)
[2018-10-14] MEDS: HYDROcodone/acetaminophen 5mg/325mg tablet PO PRN ×3 (06:43→16:30)
--- NOTE | 2018-10-14 06:45 | NUR ---
pt left for gi lab pt was given morning meds early bc of pt being hypertensive, GI lab aware pt was also medicated for pain
[2018-10-14] MEDS ORDERED: normal saline 1000ml 250 ML IV PRN (08:00)
[2018-10-14] MEDS ORDERED: LIDOcaine 1% (10mg/ml) 2ml vial SQ ONE (08:00)
[2018-10-14] MEDS ORDERED: epoetin 20,000 units/ml inj IV ONE (08:00)
[2018-10-14] MEDS ORDERED: LIDOcaine Viscous 15ml cup ONE (08:00)
[2018-10-14] MEDS ORDERED: normal saline 1000ml 100 ML IV PRN (08:00)
--- NOTE | 2018-10-14 09:10 | NUR ---
pt back from GI lab
--- NOTE | 2018-10-14 09:25 | NUR ---
pt VS stable he is sleeping for now pt hooked back up to protonix gtt will continue to monitor
--- NOTE | 2018-10-14 17:09 | NUR ---
DM Consult: A1C 7.5. Pt admit w/ recurrent GIB hx ESRD on HD currently on clear liquids per MD. Pt seen by RD for written/verbal DM ed w/ RD contact information provided. Pt declined verbal DM ed; RD encouraged to attend CDE course in addition to HD RD and encouraged to contact RD if any further questions. Addendum: 10/14/18 at [address] Amended: Links added.
--- NOTE | 2018-10-14 18:15 | NUR ---
Problems reprioritized. Patient report given, questions answered & plan of care reviewed with LINDA ELLINGTON.
--- NOTE | 2018-10-14 18:27 | NUR ---
Patient in room PCU 3018. I have received report from Danielle MCKEON and had the opportunity to ask questions and assume patient care.
--- NOTE | 2018-10-14 18:30 | NUR ---
Patient in room PCU 3018. I have received report from Alisson MCKEON and had the opportunity to ask questions and assume patient care. Pt currently laying in bed and getting dialysis at this time. He has an AV fist in the Left wrist. Per report he has orders for CT of the abdomen and pelvis tonight once he is finished with dialysis. Per report contrast screening form has been reviewed with pt. EGD and colonoscopy were done today. Will review results. There is 1 unit of blood ready it pt needs transfusion. But per report, Dr. Gramajo does not want to transfuse unless HGB < 7.0. Dialysis nurse Warner said pt has about 1 hour left on dialysis.
--- NOTE | 2018-10-14 19:01 | NUR ---
Pt down to CT Addendum: 10/15/18 at 0402 by Prudence Oh RN @ 193
--- NOTE | 2018-10-14 19:22 | NUR ---
contacted Dr Cote about CT scan with oral contrast, and pt GFR is 8. DR is okay to bring pt down to CT
--- NOTE | 2018-10-14 19:26 | NUR ---
[facility] contacted Dr. Gramajo about pt GFR and that next dialysis is not until Friday. He is okay with the pt going down. He is aware. Will prep pt now and send down.
[2018-10-14] MEDS ORDERED: iohexol 300mg/ml 100ml inj. ONE (19:33)
--- NOTE | 2018-10-14 20:00 | NUR ---
Pt back on U
[2018-10-14] MEDS: insulin glargine (Lantus) pen - multi-dose SQ SCH (23:45)
[2018-10-15] VITALS (8 sets, daily range): BP systolic 149–198; BP diastolic 42–87
[2018-10-15 05:17] LABS: BASOPHILS % (AUTO) 0.4 % (0-1); EOSINOPHILS # (AUTO) 0.3 X10'3 (0-0.9); EOSINOPHILS % (AUTO) 4.9 % (0-6); LYMPHOCYTES % (AUTO) 15.5 % (21-51); MEAN CORPUSCULAR HEMOGLOBIN 32.8 PG (27.0-31.0); MEAN CORPUSCULAR HGB CONC 33.5 g/dL (33.0-36.5); MEAN CORPUSCULAR VOLUME 97.7 FL (78-98); MEAN PLATELET VOLUME 6.4 FL (7.4-10.4); MONOCYTES # (AUTO) 0.6 X10'3 (0-0.9); MONOCYTES % (AUTO) 9.1 % (2-12); NEUTROPHILS # (AUTO) 4.4 X10'3 (1.8-7.7); NEUTROPHILS % (AUTO) 70.1 % (42-75); PLATELET COUNT 166 X10'3 (140-440); RED CELL DISTRIBUTION WIDTH 14.2 % (11.5-14.5); WHITE BLOOD COUNT 6.3 X10'3 (4.5-11.0)
[2018-10-15 05:20] LABS: HEMATOCRIT 20.5 % (42.0-52.0); HEMOGLOBIN 6.9 g/dl (14.0-17.9)
[2018-10-15 05:57] LABS: ALANINE AMINOTRANSFERASE 16 U/L (12-78); ALBUMIN 2.5 G/DL (3.4-5.0); ALBUMIN/GLOBULIN RATIO 0.8 (1.1-1.5); ALKALINE PHOSPHATASE 124 IU/L (46-116); ANION GAP 10 (8-16); ASPARTATE AMINO TRANSFERASE 19 U/L (10-37); BILIRUBIN,TOTAL 0.8 MG/DL (0.1-1.0); BLOOD UREA NITROGEN 30 MG/DL (7-18); BUN/CREATININE RATIO 6.5 (5.4-32.0); CALCIUM 7.9 MG/DL (8.5-10.1); CHLORIDE 99 MMOL/L (99-107); CREATININE 4.62 MG/DL (0.60-1.10); GLUCOSE 208 MG/DL (70-104); MAGNESIUM 1.8 MG/DL (1.5-2.4); PHOSPHORUS 3.6 MG/DL (2.3-4.5); POTASSIUM 4.5 MMOL/L (3.5-5.1); SODIUM 138 MMOL/L (135-145); TOTAL CARBON DIOXIDE 28.6 MMOL/L (24-32); TOTAL PROTEIN 5.7 G/DL (6.4-8.2); eGFR 13 ML/MIN
--- NOTE | 2018-10-15 06:08 | NUR ---
Pt H/H came back critical at 6.9 / 20.5. He has 1 unit ready. He was last transfused on 10/12. There is no consent in the chart or a copy of blood that was transfused on 10/12. New consent has been signed. Tubing primed. Blood has not been picked up yet. Tele orders from [facility] to transfuse.
[2018-10-15] MEDS: metoprolol tartrate 50mg tablet PO SCH ×2 (07:46→20:14)
[2018-10-15] MEDS: losartan 50mg tablet PO SCH (07:46)
[2018-10-15] MEDS: multivitamins, therapeutics tablet PO SCH (07:46)
[2018-10-15] MEDS: amLODIPine 5mg tablet PO SCH (07:47)
[2018-10-15] MEDS: folic acid 1mg tablet PO SCH (07:47)
[2018-10-15] MEDS ORDERED: desmopressin inj. 20 MCG in normal saline 100ml IV soln 100 ML IV ONE (09:40)
[2018-10-15] MEDS: estrogen, conjugated 0.625mg tablet PO SCH (10:41)
[2018-10-15] MEDS: insulin Lispro (HumaLOG) vial - multi-dose SQ SCH (12:57)
--- NOTE | 2018-10-15 18:43 | NUR ---
Problems reprioritized. Patient report given, questions answered & plan of care reviewed with Prudence MCKEON.
--- NOTE | 2018-10-15 18:59 | NUR ---
Patient in room PCU 3018. I have received report from Clemente MCKEON and had the opportunity to ask questions and assume patient care. Pt currently laying in bed. Happier after being given a renal diet. Is compliant with insulin for his diabetes. No complaints at this time. Per report he will stay a few more nights and have H/H observed throughout stay. No repeat hemogram was done after critical H/H this morning and [address] per protocol under Dr. Gramajo
--- NOTE | 2018-10-15 19:47 | NUR ---
Pt has not eaten much over the last few days of admission due to being NPO then placed on clear liquid diet. Dr. Gramajo approved a renal diet today. Pt had more than 60 grams and is also diabetic. Per pt he refuses to have the 24 units of humalog he should receive based on hyperglycemic/hypo protocol. "That'll put me in a diabetic coma. I only take lantus at home after dinner time. 15 to 25 units based on my carb intake. My doctor does not want me on humalog since I've been on dialysis bc I'll tank." Called August WINDLACE MACHINE OPERATOR regarding this. She has continued pt's home dose of lantus. And advised I just chart that he's refusing humalog. Pt's daughter has called to also clarify home dose. She feels that the 25 units of home dose scheduled for every night. She also expresses that when her dad gets put on a normal diet again during hospital stays, his bleeding normally stops. She feels that it's the bulk of his stool that helps control the bleeding. Apparently on day shift he had one bright red stool. And Dr. Gramajo gave DDAVP x1 dose and estrogen 2.5 mg PO DAILY for 5 days to help control the bleeding.
[2018-10-15] MEDS: insulin glargine (Lantus) pen - multi-dose SQ SCH (20:07)
[2018-10-15] MEDS: temazepam 15mg capsule PO SCH (20:13)
[2018-10-15 21:23] LABS: HEMOGLOBIN 7.3 g/dl (14.0-17.9); MEAN CORPUSCULAR HEMOGLOBIN 33.5 PG (27.0-31.0); MEAN CORPUSCULAR HGB CONC 35.1 g/dL (33.0-36.5); MEAN CORPUSCULAR VOLUME 95.6 FL (78-98); MEAN PLATELET VOLUME 6.6 FL (7.4-10.4); PLATELET COUNT 146 X10'3 (140-440); RED BLOOD COUNT 2.17 X10'6 (4.70-6.10); RED CELL DISTRIBUTION WIDTH 15.1 % (11.5-14.5); WHITE BLOOD COUNT 6.6 X10'3 (4.5-11.0)
[2018-10-15 21:40] LABS: HEMATOCRIT 20.8 % (42.0-52.0)
--- NOTE | 2018-10-16 01:06 | NUR ---
Lantus 25 ml given earlier tonight. Blood sugar was 410 mg/dL at that time. No humalog given. No symptoms r/t hyperglycemia. Rechecked now and pt's sugar is 284 mg/dL. Will continue to monitor throughout the evening.
[2018-10-16 03:00] VITALS: BP 161/65
--- NOTE | 2018-10-16 03:07 | NUR ---
During 3 am vitals pt brought up having swollen glands. On assessment pt had palpable masses bilaterally, that he states goes down when he sits up in bed. He says they are slightly tender to the touch, but do not seem to be constricting his breathing. Asymptomatic. Advised him to use call light if he feels symptomatic.
[2018-10-16 06:00] VITALS: BP_SYST 170; BP_DIAS 66; BP_DIAS 69
--- NOTE | 2018-10-16 06:35 | NUR ---
Patient in room PCU 3018. I have received report from LINDA Graham and had the opportunity to ask questions and assume patient care.
[2018-10-16 06:39] LABS: ALANINE AMINOTRANSFERASE 17 U/L (12-78); ALBUMIN 2.7 G/DL (3.4-5.0); ALBUMIN/GLOBULIN RATIO 0.8 (1.1-1.5); ALKALINE PHOSPHATASE 158 IU/L (46-116); ANION GAP 9 (8-16); ASPARTATE AMINO TRANSFERASE 22 U/L (10-37); BILIRUBIN,TOTAL 0.7 MG/DL (0.1-1.0); BLOOD UREA NITROGEN 47 MG/DL (7-18); CALCIUM 7.7 MG/DL (8.5-10.1); CHLORIDE 99 MMOL/L (99-107); CREATININE 6.75 MG/DL (0.60-1.10); GLUCOSE 208 MG/DL (70-104); MAGNESIUM 1.9 MG/DL (1.5-2.4); PHOSPHORUS 4.6 MG/DL (2.3-4.5); POTASSIUM 4.5 MMOL/L (3.5-5.1); SODIUM 135 MMOL/L (135-145); TOTAL CARBON DIOXIDE 27.3 MMOL/L (24-32); eGFR 8 ML/MIN
[2018-10-16 06:41] LABS: BASOPHILS % (AUTO) 0.5 % (0-1); EOSINOPHILS # (AUTO) 0.5 X10'3 (0-0.9); EOSINOPHILS % (AUTO) 6.9 % (0-6); HEMOGLOBIN 7.2 g/dl (14.0-17.9); LYMPHOCYTES % (AUTO) 12.7 % (21-51); MEAN CORPUSCULAR HEMOGLOBIN 32.4 PG (27.0-31.0); MEAN CORPUSCULAR HGB CONC 33.1 g/dL (33.0-36.5); MEAN PLATELET VOLUME 6.7 FL (7.4-10.4); MONOCYTES # (AUTO) 0.6 X10'3 (0-0.9); MONOCYTES % (AUTO) 7.1 % (2-12); NEUTROPHILS # (AUTO) 5.8 X10'3 (1.8-7.7); NEUTROPHILS % (AUTO) 72.8 % (42-75); PLATELET COUNT 161 X10'3 (140-440); RED BLOOD COUNT 2.21 X10'6 (4.70-6.10); RED CELL DISTRIBUTION WIDTH 14.6 % (11.5-14.5); WHITE BLOOD COUNT 7.9 X10'3 (4.5-11.0)
--- NOTE | 2018-10-16 06:42 | NUR ---
Problems reprioritized. Patient report given, questions answered & plan of care reviewed with Joanna MCKEON.
[2018-10-16 06:44] LABS: HEMATOCRIT 21.6 % (42.0-52.0)
[2018-10-16] MEDS: folic acid 1mg tablet PO SCH (07:34)
[2018-10-16] MEDS: multivitamins, therapeutics tablet PO SCH (07:35)
[2018-10-16] MEDS: estrogen, conjugated 0.625mg tablet PO SCH (07:35)
[2018-10-16] MEDS: losartan 50mg tablet PO SCH (07:36)
[2018-10-16] MEDS: metoprolol tartrate 50mg tablet PO SCH ×2 (07:36→19:54)
[2018-10-16] MEDS: amLODIPine 5mg tablet PO SCH (07:37)
[2018-10-16] MEDS ORDERED: LIDOcaine 1% (10mg/ml) 2ml vial SQ ONE (08:00)
[2018-10-16] MEDS ORDERED: normal saline 1000ml 100 ML IV PRN (08:00)
[2018-10-16] MEDS ORDERED: normal saline 1000ml 250 ML IV PRN (08:00)
[2018-10-16] MEDS ORDERED: epoetin 20,000 units/ml inj IV ONE (08:00)
--- NOTE | 2018-10-16 09:23 | NUR ---
Did not give patient Humalog because he normally only does Lantus at home and his primary care has told him numerous times not to take Humalog. The protocol also has not been utilized correctly and the patient should not be a level 4; he has only had one dose of Humalog in his entire stay here. He was restarted last night on his 25 units of Lantus that he was normally taking at home. He was on the protocol for Lantus prior and I'm assuming that's why he has been elevated and they added the Humalog. Now that he is getting is normal dose of Lantus hopefully he will start to even out his levels. His sugar was 170 this am. Will discuss with Dr. Gramajo when he rounds. Addendum: 10/16/18 at 0935 by Joanna Ignacio RN Blood sugar was 197. Will re-check at 1200 and evaluate the need for Humalog.
[2018-10-16 11:15] VITALS: BP 168/71
[2018-10-16] MEDS: insulin Lispro (HumaLOG) vial - multi-dose SQ SCH (12:27)
--- NOTE | 2018-10-16 12:35 | NUR ---
Gave patient 5 unites of Humalog because his sugar was 238. He said that he's usually in the 150's or 180's at home by just doing the 25 units of Lantus. He just started the 25 units last night so I'm going to clarify with Dr. Gramajo about if he wants the Humalog also or just the Lantus. He's also getting dialyzed today so I don't want him to bottom out. Will re-check at 1700 and see if he stays high.
[2018-10-16 16:00] VITALS: BP 175/81
--- NOTE | 2018-10-16 16:20 | NUR ---
Initial: Pt admit with GI bleed and anemia. Pt with ESRD on HD per MD progress notes. Patient's diet has been advanced to renal diet with documented PO intake 75-100% likely meeting nutrient needs. LBM 10/15. No edema or wounds. Will continue to follow. Recommendations: 1) Continue with renal diet 2) Monitor need for addition of CHO diet 3) Monitor need for ONS 4) Wt per rx Addendum: 10/16/18 at [address] Amended: Links added.
--- NOTE | 2018-10-16 18:15 | NUR ---
Problems reprioritized. Patient report given, questions answered & plan of care reviewed with LINDA Foote.
[2018-10-16 18:18] VITALS: BP 170/71
--- NOTE | 2018-10-16 18:30 | NUR ---
Patient in room PCU 3018. I have received report from Joanna MCKEON and had the opportunity to ask questions and assume patient care. Patient now receiving dialysis
[2018-10-16] MEDS: temazepam 15mg capsule PO SCH (19:54)
[2018-10-16] MEDS: insulin glargine (Lantus) pen - multi-dose SQ SCH (20:18)
[2018-10-16 22:00] VITALS: BP 154/51
[2018-10-17 02:00] VITALS: BP 100/58
--- NOTE | 2018-10-17 06:32 | NUR ---
Problems reprioritized. Patient report given, questions answered & plan of care reviewed with Woody RN. Patient in bed, awake, aide is getting weight.
[2018-10-17 06:50] VITALS: BP 188/71
--- NOTE | 2018-10-17 06:54 | NUR ---
Patient in room PCU 3018. I have received report from TONI MCKEON and had the opportunity to ask questions and assume patient care.
[2018-10-17 07:02] LABS: BASOPHILS % (AUTO) 0.7 % (0-1); EOSINOPHILS # (AUTO) 0.4 X10'3 (0-0.9); EOSINOPHILS % (AUTO) 6.1 % (0-6); HEMOGLOBIN 7.3 g/dl (14.0-17.9); LYMPHOCYTES # (AUTO) 0.9 X10'3 (1.1-4.8); LYMPHOCYTES % (AUTO) 14.1 % (21-51); MEAN CORPUSCULAR HEMOGLOBIN 33.7 PG (27.0-31.0); MEAN CORPUSCULAR HGB CONC 34.8 g/dL (33.0-36.5); MEAN PLATELET VOLUME 6.7 FL (7.4-10.4); MONOCYTES # (AUTO) 0.5 X10'3 (0-0.9); MONOCYTES % (AUTO) 8.6 % (2-12); NEUTROPHILS # (AUTO) 4.4 X10'3 (1.8-7.7); NEUTROPHILS % (AUTO) 70.5 % (42-75); PLATELET COUNT 129 X10'3 (140-440); RED BLOOD COUNT 2.16 X10'6 (4.70-6.10); RED CELL DISTRIBUTION WIDTH 15.3 % (11.5-14.5); WHITE BLOOD COUNT 6.2 X10'3 (4.5-11.0)
[2018-10-17 07:19] LABS: ALANINE AMINOTRANSFERASE 18 U/L (12-78); ALBUMIN 2.5 G/DL (3.4-5.0); ALBUMIN/GLOBULIN RATIO 0.7 (1.1-1.5); ALKALINE PHOSPHATASE 167 IU/L (46-116); ANION GAP 6 (8-16); ASPARTATE AMINO TRANSFERASE 23 U/L (10-37); BILIRUBIN,TOTAL 0.7 MG/DL (0.1-1.0); BLOOD UREA NITROGEN 27 MG/DL (7-18); BUN/CREATININE RATIO 6.2 (5.4-32.0); CALCIUM 7.7 MG/DL (8.5-10.1); CHLORIDE 103 MMOL/L (99-107); CREATININE 4.37 MG/DL (0.60-1.10); GLUCOSE 191 MG/DL (70-104); MAGNESIUM 1.8 MG/DL (1.5-2.4); PHOSPHORUS 3.8 MG/DL (2.3-4.5); POTASSIUM 4.7 MMOL/L (3.5-5.1); SODIUM 139 MMOL/L (135-145); TOTAL CARBON DIOXIDE 30.1 MMOL/L (24-32); TOTAL PROTEIN 5.9 G/DL (6.4-8.2); eGFR 14 ML/MIN
[2018-10-17] MEDS: folic acid 1mg tablet PO SCH (07:43)
[2018-10-17] MEDS: multivitamins, therapeutics tablet PO SCH (07:43)
[2018-10-17] MEDS: losartan 50mg tablet PO SCH (07:43)
[2018-10-17] MEDS: metoprolol tartrate 50mg tablet PO SCH ×2 (07:44→20:12)
[2018-10-17] MEDS: amLODIPine 5mg tablet PO SCH (07:44)
[2018-10-17] MEDS: estrogen, conjugated 0.625mg tablet PO SCH (07:45)
[2018-10-17 11:24] VITALS: BP 159/65
[2018-10-17 15:40] VITALS: BP 156/61
--- NOTE | 2018-10-17 18:26 | NUR ---
Problems reprioritized. Patient report given, questions answered & plan of care reviewed with Heydi MCKEON.
--- NOTE | 2018-10-17 18:30 | NUR ---
Patient in room PCU 3018. I have received report from TONJA MCKEON and had the opportunity to ask questions and assume patient care.
[2018-10-17 19:00] VITALS: BP 165/94
[2018-10-17] MEDS: insulin glargine (Lantus) pen - multi-dose SQ SCH (20:05)
[2018-10-17] MEDS: temazepam 15mg capsule PO SCH (20:06)
--- NOTE | 2018-10-17 20:30 | NUR ---
PATIENT REFUSED TO HAVE HIS PIV RE STARTED, PATIENT STATED "I HURT A LOT FROM THIS NEEDLE POKES, I CAN HAVE IT TOMORROW IF I NEED IT, ANYWAY I WILL BE GOING HOME IF MY BLOOD LEVELS ARE BETTER". MILIND HAHN WAS HERE AND WAS INFORMED OF PATIENT'S REFUSAL.
[2018-10-17 23:00] VITALS: BP_DIAS 78
[2018-10-18 03:00] VITALS: BP 158/66
[2018-10-18 06:00] VITALS: BP 197/81
--- NOTE | 2018-10-18 06:20 | NUR ---
Patient in room PCU 3018. I have received report from bAy Badillo RN and had the opportunity to ask questions and assume patient care.
--- NOTE | 2018-10-18 06:30 | NUR ---
Problems reprioritized. Patient report given, questions answered & plan of care reviewed with ADOLFO RN.
[2018-10-18 06:40] LABS: BASOPHILS # (AUTO) 0.1 X10'3 (0-0.2); BASOPHILS % (AUTO) 1.1 % (0-1); EOSINOPHILS # (AUTO) 0.6 X10'3 (0-0.9); EOSINOPHILS % (AUTO) 7.9 % (0-6); HEMATOCRIT 22.5 % (42.0-52.0); HEMOGLOBIN 7.8 g/dl (14.0-17.9); LYMPHOCYTES % (AUTO) 12.9 % (21-51); MEAN CORPUSCULAR HEMOGLOBIN 33.5 PG (27.0-31.0); MEAN CORPUSCULAR HGB CONC 34.8 g/dL (33.0-36.5); MEAN CORPUSCULAR VOLUME 96.2 FL (78-98); MONOCYTES # (AUTO) 0.5 X10'3 (0-0.9); MONOCYTES % (AUTO) 6.8 % (2-12); NEUTROPHILS # (AUTO) 5.4 X10'3 (1.8-7.7); NEUTROPHILS % (AUTO) 71.3 % (42-75); PLATELET COUNT 147 X10'3 (140-440); RED BLOOD COUNT 2.34 X10'6 (4.70-6.10); RED CELL DISTRIBUTION WIDTH 15.7 % (11.5-14.5); WHITE BLOOD COUNT 7.5 X10'3 (4.5-11.0)
[2018-10-18 06:57] LABS: ALANINE AMINOTRANSFERASE 20 U/L (12-78); ALBUMIN 2.8 G/DL (3.4-5.0); ALBUMIN/GLOBULIN RATIO 0.8 (1.1-1.5); ALKALINE PHOSPHATASE 168 IU/L (46-116); ANION GAP 10 (8-16); ASPARTATE AMINO TRANSFERASE 24 U/L (10-37); BILIRUBIN,TOTAL 0.8 MG/DL (0.1-1.0); BLOOD UREA NITROGEN 45 MG/DL (7-18); BUN/CREATININE RATIO 6.7 (5.4-32.0); CHLORIDE 100 MMOL/L (99-107); GLUCOSE 173 MG/DL (70-104); PHOSPHORUS 4.4 MG/DL (2.3-4.5); POTASSIUM 4.4 MMOL/L (3.5-5.1); SODIUM 136 MMOL/L (135-145); TOTAL PROTEIN 6.5 G/DL (6.4-8.2); eGFR 8 ML/MIN
[2018-10-18] MEDS: folic acid 1mg tablet PO SCH (07:22)
[2018-10-18] MEDS: multivitamins, therapeutics tablet PO SCH (07:22)
[2018-10-18] MEDS: amLODIPine 5mg tablet PO SCH (07:22)
[2018-10-18] MEDS: losartan 50mg tablet PO SCH (07:22)
[2018-10-18] MEDS: metoprolol tartrate 50mg tablet PO SCH (07:23)
[2018-10-18] MEDS: estrogen, conjugated 0.625mg tablet PO SCH (07:23)
[2018-10-18 07:24] VITALS: BP 178/75
[2018-10-18 11:00] VITALS: BP 159/65
[2018-10-18] MEDS ORDERED: PRE0.625T PO (13:25)
--- NOTE | 2018-10-18 14:35 | NUR ---
DC inst provided to pt. No IV. All belongings sent w/pt. Pt ambulated w/PCT to front lobby.
== END 2018-10-18 14:41 | disposition home or self-care (01) | DRG 377 ==
LOC: ER 17:23 → ED HOLD 20:07 → PCU 3S 10-13 07:43
PROVIDERS: ADMIT Internal Medicine Critical Care Medicine; ATTEND Internal Medicine Critical Care Medicine
PROC: 30233N1 Transfusion of Nonautologous Red Blood Cells into Peripheral Vein, Percutaneous Approach (ICD-10-PCS; principal; 2018-10-12)
PROC: CD171ZZ Planar Nuclear Medicine Imaging of Gastrointestinal Tract using Technetium 99m (Tc-99m) (ICD-10-PCS; 2018-10-13)
PROC: BW211ZZ Computerized Tomography (CT Scan) of Abdomen and Pelvis using Low Osmolar Contrast (ICD-10-PCS; 2018-10-14)
PROC: 5A1D70Z Performance of Urinary Filtration, Intermittent, Less than 6 Hours Per Day (ICD-10-PCS; 2018-10-14)
PROC: 0DJ08ZZ Inspection of Upper Intestinal Tract, Via Natural or Artificial Opening Endoscopic (ICD-10-PCS; 2018-10-14)
PROC: 0DJD8ZZ Inspection of Lower Intestinal Tract, Via Natural or Artificial Opening Endoscopic (ICD-10-PCS; 2018-10-14)
PROC: 30233N1 Transfusion of Nonautologous Red Blood Cells into Peripheral Vein, Percutaneous Approach (ICD-10-PCS; 2018-10-15)
PROC: 5A1D70Z Performance of Urinary Filtration, Intermittent, Less than 6 Hours Per Day (ICD-10-PCS; 2018-10-16)
DX: K92.1 Melena (principal); N18.6 End stage renal disease; D62 Acute posthemorrhagic anemia; Z94.4 Liver transplant status; K64.8 Other hemorrhoids; Z99.2 Dependence on renal dialysis; E11.22 Type 2 diabetes mellitus with diabetic chronic kidney disease; F40.240 Claustrophobia; I48.91 Unspecified atrial fibrillation; B19.20 Unspecified viral hepatitis C without hepatic coma; F17.210 Nicotine dependence, cigarettes, uncomplicated; Z79.899 Other long term (current) drug therapy; Z79.4 Long term (current) use of insulin
CPT/HCPCS: 36415; 45378; 74177; 78278; 80053; 82272; 82948; 83036; 83540; 83550; 83735; 84100; 85025; 85027; 85610; 86885; 86900; 86901; 86920; 87070; 96361; 96374; 99152; 99153; 99291; A4620; A9560; C9113; G0257; G0378; J0885; J1642; J1815; J2250; J2597; J3010; J3490; J7030; P9016; Q9967

== ENCOUNTER 2018-11-05 08:20 | Day surgery (SDC) | payer MEDICARE, MEDICAID ==
[~2018-11-05] VITALS: Ht 185.4 cm; Wt 78.7 kg
[~2018-11-05 08:20] MED LIST changes: -FOLI0.8T7 PO; +FOLI1TAB16 PO; -FURO80TA87 PO; +INSU100V9 SQ; +LIDOcaine 1% 30ml preserv. free vial IJ STA; +MULT-955 PO; +PRE0.625T PO; +TEMA15CA5 PO
[2018-11-05] MEDS ORDERED: CALC667C5 PO (09:06)
[2018-11-05] MEDS ORDERED: LEVO25TA7 PO (09:06)
[2018-11-05] MEDS ORDERED: MINO2.5T19 PO (09:06)
[2018-11-05] MEDS ORDERED: DILT180C66 PO (09:06)
[2018-11-05 09:08] VITALS: BP 153/81
[2018-11-05] MEDS ORDERED: oxyCODONE IR 5mg (immed. release) tablet PO ONE (10:10)
[2018-11-05 10:45] VITALS: BP 153/81
[2018-11-05 11:27] LABS: BASOPHILS,BODY FLUID 1 %; EOSINOPHILS,BODY FLUID 2 %; LYMPHOCYTES,BODY FLUID 55 %; MONOCYTES,BODY FLUID 36 %; NEUTROPHILS,BODY FLUID 6 %
[2018-11-05 11:28] LABS: BFAPPEAR HAZY
[2018-11-05 11:32] LABS: BFCOLOR YELLOW; BFVOLUME 26 ML
[2018-11-05 11:33] LABS: BF MESOTHELIAL CELLS FEW; BF RBC COUNT 283 /CU MM; BF WBC COUNT 88 /CU MM (0-1000)
[2018-11-05 12:27] LABS: ALBUMIN,BODY FLUID 1.2 G/DL; LDH,BODY FLUID 120 U/L; TOTAL PROTEIN,BODY FLUID 2.4 G/DL
== END 2018-11-05 10:45 | disposition home or self-care (01) ==
LOC: SSTAY O 08:20
PROVIDERS: ATTEND Radiology Vascular & Interventional Radiology
DX: J90 Pleural effusion, not elsewhere classified (principal); N18.6 End stage renal disease; I13.2 Hypertensive heart and chronic kidney disease with heart failure and with stage 5 chronic kidney disease, or end stage renal disease; E11.22 Type 2 diabetes mellitus with diabetic chronic kidney disease; I50.9 Heart failure, unspecified; Z98.85 Transplanted organ removal status; Z79.899 Other long term (current) drug therapy; Z79.4 Long term (current) use of insulin
CPT/HCPCS: 32555; 71045; 82042; 83615; 84157; 89051; C1729; J3490; 88108

== ENCOUNTER 2018-12-23 06:58 | Day surgery (SDC) | payer MEDICARE, MEDICAID ==
[2018-12-23] VITALS (7 sets, daily range): BP systolic 148–178; BP diastolic 69–79
[~2018-12-23] VITALS: Ht 185.4 cm; Wt 79.6 kg
[~2018-12-23 06:58] MED LIST changes: -AMLO5TAB PO; +FOLI0.4T2 PO; +FOLI0.8T7 PO; -FOLI1TAB16 PO; -LIDOcaine 1% 30ml preserv. free vial IJ STA; +LIDOcaine 1% 30ml preserv. free vial SQ STA; +METO-477 PO; -METO100T14 PO; -MULT-955 PO; -PANT40TA4 PO; -PRE0.625T PO; +ZAR2.5T PO
[2018-12-23] MEDS ORDERED: HYDR-3972 PO (07:37)
[2018-12-23] MEDS ORDERED: ondansetron 4mg rapidly disintigrating tab PO ONE (07:40)
[2018-12-23] MEDS ORDERED: HYDROcodone/acetaminophen 10/325mg tab PO ONE (07:40)
[2018-12-23 08:14] LABS: ALBUMIN 2.7 G/DL (3.4-5.0); TOTAL PROTEIN 6.5 G/DL (6.4-8.2)
[2018-12-23 09:38] LABS: ALBUMIN,BODY FLUID 1.2 G/DL; LDH,BODY FLUID 156 U/L; TOTAL PROTEIN,BODY FLUID 2.5 G/DL
[2018-12-23 10:08] LABS: BF MESOTHELIAL CELLS FEW; BF RBC COUNT 915 /CU MM; BF WBC COUNT 225 /CU MM (0-1000); BFAPPEAR HAZY; BFCOLOR YELLOW; BFVOLUME 55 ML; EOSINOPHILS,BODY FLUID 12 %; LYMPHOCYTES,BODY FLUID 68 %; MONOCYTES,BODY FLUID 19 %; NEUTROPHILS,BODY FLUID 1 %
== END 2018-12-23 09:40 | disposition home or self-care (01) ==
LOC: SSTAY O 06:58
PROVIDERS: ATTEND Radiology Diagnostic Radiology
DX: J90 Pleural effusion, not elsewhere classified (principal); I13.2 Hypertensive heart and chronic kidney disease with heart failure and with stage 5 chronic kidney disease, or end stage renal disease; N18.6 End stage renal disease; I50.9 Heart failure, unspecified; E11.22 Type 2 diabetes mellitus with diabetic chronic kidney disease; Z79.4 Long term (current) use of insulin; Z79.899 Other long term (current) drug therapy; Z94.4 Liver transplant status
CPT/HCPCS: 32555; 71045; 82040; 82042; 83615; 84155; 84157; 89051; C1729; J3490

== ENCOUNTER 2019-04-20 05:36 | Day surgery (SDC) | payer MEDICARE, MEDICAID ==
[~2019-04-20] VITALS: Ht 185.4 cm; Wt 82.4 kg
[~2019-04-20 05:36] MED LIST changes: +HYDR-3972 PO; -LIDOcaine 1% 30ml preserv. free vial SQ STA; +PANT-47 PO
[2019-04-20] MEDS ORDERED: albumin 25% 100mL bottle x 1 IV PRN (06:00)
[2019-04-20 06:09] VITALS: BP 154/72
[2019-04-20] MEDS ORDERED: ondansetron 4mg rapidly disintigrating tab PO ONE (07:35)
[2019-04-20] MEDS ORDERED: oxyCODONE IR 5mg (immed. release) tablet PO ONE ×2 (07:40→09:20)
[2019-04-20 08:40] VITALS: BP 154/76
[2019-04-20 09:00] VITALS: BP 163/77
[2019-04-20 09:15] VITALS: BP 141/60
[2019-04-20 09:34] VITALS: BP 139/74
[2019-04-20 09:45] VITALS: BP 141/80
[2019-04-20] MEDS ORDERED: proMETHazine 25mg tablet PO ONE (09:45)
== END 2019-04-20 09:52 | disposition home or self-care (01) ==
LOC: SSTAY O 05:36
PROVIDERS: ATTEND Radiology Vascular & Interventional Radiology
DX: J90 Pleural effusion, not elsewhere classified (principal); E11.22 Type 2 diabetes mellitus with diabetic chronic kidney disease; I13.2 Hypertensive heart and chronic kidney disease with heart failure and with stage 5 chronic kidney disease, or end stage renal disease; N18.6 End stage renal disease; I50.9 Heart failure, unspecified; E03.9 Hypothyroidism, unspecified; Z79.4 Long term (current) use of insulin; Z79.899 Other long term (current) drug therapy; Z94.4 Liver transplant status
CPT/HCPCS: 32555; 71045; J2405; Q0169

== ENCOUNTER 2019-06-04 06:23 | Day surgery (SDC) | payer MEDICARE, MEDICAID ==
[~2019-06-04] VITALS: Ht 185.4 cm; Wt 82.8 kg
[2019-06-04] VITALS (7 sets, daily range): BP systolic 140–177; BP diastolic 71–93
[2019-06-04] MEDS ORDERED: INSU100C10 SQ (07:13)
[2019-06-04] MEDS ORDERED: oxyCODONE IR 5mg (immed. release) tablet PO STA (08:32)
[2019-06-04] MEDS ORDERED: ondansetron 4mg rapidly disintigrating tab PO STA (08:32)
== END 2019-06-04 09:20 | disposition home or self-care (01) ==
LOC: SSTAY O 06:23
PROVIDERS: ATTEND Radiology Diagnostic Radiology
DX: J90 Pleural effusion, not elsewhere classified (principal); E11.22 Type 2 diabetes mellitus with diabetic chronic kidney disease; I13.0 Hypertensive heart and chronic kidney disease with heart failure and stage 1 through stage 4 chronic kidney disease, or unspecified chronic kidney disease; N18.6 End stage renal disease; I50.9 Heart failure, unspecified; E21.3 Hyperparathyroidism, unspecified; I48.91 Unspecified atrial fibrillation; Z86.19 Personal history of other infectious and parasitic diseases; Z79.4 Long term (current) use of insulin; Z79.899 Other long term (current) drug therapy
CPT/HCPCS: 32555; 71045

== ENCOUNTER 2019-06-26 17:01 | Inpatient (IN) | payer MEDICARE, MEDICAID ==
[~2019-06-26] VITALS: Ht 185.4 cm; Wt 84.0 kg
[~2019-06-26 17:01] MED LIST changes: -HYDR-3972 PO; +INSU100C10 SQ
[2019-06-26 18:41] LABS: BASOPHILS # (AUTO) 0.1 X10'3 (0-0.2); EOSINOPHILS # (AUTO) 0.3 X10'3 (0-0.9); EOSINOPHILS % (AUTO) 3.3 % (0-6); HEMATOCRIT 26.9 % (42.0-52.0); HEMOGLOBIN 9.7 g/dl (14.0-17.9); LYMPHOCYTES # (AUTO) 0.6 X10'3 (1.1-4.8); LYMPHOCYTES % (AUTO) 6.5 % (21-51); MEAN CORPUSCULAR HEMOGLOBIN 34.1 PG (27.0-31.0); MEAN CORPUSCULAR HGB CONC 36.2 g/dL (33.0-36.5); MEAN CORPUSCULAR VOLUME 94.2 FL (78-98); MEAN PLATELET VOLUME 6.4 FL (7.4-10.4); MONOCYTES # (AUTO) 0.9 X10'3 (0-0.9); MONOCYTES % (AUTO) 10.1 % (2-12); NEUTROPHILS # (AUTO) 6.7 X10'3 (1.8-7.7); NEUTROPHILS % (AUTO) 79.1 % (42-75); PLATELET COUNT 177 X10'3 (140-440); RED BLOOD COUNT 2.86 X10'6 (4.70-6.10); RED CELL DISTRIBUTION WIDTH 15.5 % (11.5-14.5); WHITE BLOOD COUNT 8.5 X10'3 (4.5-11.0)
[2019-06-26 18:51] LABS: ALANINE AMINOTRANSFERASE 40 U/L (12-78); ALBUMIN/GLOBULIN RATIO 0.6 (1.1-1.5); ALKALINE PHOSPHATASE 308 IU/L (46-116); ANION GAP 7 (8-16); ASPARTATE AMINO TRANSFERASE 38 U/L (10-37); BILIRUBIN,TOTAL 1.7 MG/DL (0.1-1.0); CALCIUM 8.2 MG/DL (8.5-10.1); CHLORIDE 97 MMOL/L (99-107); CREATININE 5.38 MG/DL (0.60-1.10); GLUCOSE 255 MG/DL (70-104); SODIUM 138 MMOL/L (135-145); TOTAL CARBON DIOXIDE 33.6 MMOL/L (24-32); TOTAL PROTEIN 7.7 G/DL (6.4-8.2); eGFR 11 ML/MIN
[2019-06-26 18:58] LABS: BLOOD UREA NITROGEN 47 MG/DL (7-18); BUN/CREATININE RATIO 8.7 (5.4-32.0)
--- NOTE | 2019-06-26 20:22 | NUR ---
PATIENT CAME AFTER HD VIA LEFT FOREARM FISTULA +BRUIT,+THRILL WHERE DIALYSIS REMOVED 3.8 LITERS. PATIENT HAS BEEN WEARING OXYGEN SINCE FRIDAY. SOB WITH MILD EXERTION
--- NOTE | 2019-06-26 20:23 | NUR ---
DR CASAS WAS IN ROOM AND WILL CALL DR ANDERSON REGARDING PLAN OF CARE
[2019-06-26] MEDS ORDERED: MESSAGE TO PHARMACY PO ONE (21:45)
[2019-06-26] MEDS ORDERED: glucagon, human recombinant 1mg kit SUBCUT PRN (21:45)
[2019-06-26] MEDS ORDERED: ipratropium 0.5 MG/2.5ML nebule IH PRN (21:45)
[2019-06-26] MEDS ORDERED: ipratropium/albuterol 3ml nebule NEB ONE (21:45)
[2019-06-26] MEDS ORDERED: acetaminophen 325mg tablet PO PRN ×2 (21:45)
[2019-06-26] MEDS ORDERED: dextrose 50%-water 50ml dispensing syringe IV PRN ×2 (21:45)
[2019-06-26] MEDS ORDERED: hydrALAZINE 20mg/ml inj. IV PRN (21:45)
[2019-06-26] MEDS ORDERED: dextrose ORAL solution 15 GM/59 ML bottle PO PRN (21:45)
[2019-06-26 22:28] LABS: MAGNESIUM 1.9 MG/DL (1.5-2.4); PHOSPHORUS 3.6 MG/DL (2.3-4.5)
[2019-06-26] MEDS: temazepam 15mg capsule PO SCH (22:29)
[2019-06-26] MEDS: metoprolol tartrate 50mg tablet PO SCH (22:29)
[2019-06-26] MEDS: ondansetron/PF 4mg/2ml inj IV PRN (22:29)
[2019-06-26 22:30] LABS: HEMOGLOBIN A1C 6.1 % (4.5-6.2)
[2019-06-26] MEDS ORDERED: albuterol 2.5 MG/3 ML nebule NEB PRN (22:30)
[2019-06-26 22:40] LABS: PARTIAL THROMBOPLASTIN TIME 30 SECONDS (22-32)
[2019-06-26] MEDS ORDERED: amLODIPine 5mg tablet PO ONE (22:40)
[2019-06-26] MEDS: amLODIPine 5mg tablet PO SCH (22:41)
--- NOTE | 2019-06-26 22:55 | NUR ---
PHONE REPORT TO JAVIER MCKEON PCU. PATIENT TO GO TO ROOM 3010K MONITORED WITH RN AND ALL HIS BELONGINGS. HIS FRIEND AND MOTHER OF HIS CHILDREN (EX ) MATT [phone] TOOK SOME OF HIS CLOTHES HOME INCLUDING HIS SHIRT
[2019-06-26] MEDS ORDERED: FOLI0.4T14 PO (23:29)
[2019-06-26] MEDS ORDERED: AMLO10TA4 PO (23:30)
[2019-06-26] MEDS ORDERED: ZAR2.5T PO (23:31)
[2019-06-26] MEDS ORDERED: DOCU-148 PO (23:33)
[2019-06-26] MEDS ORDERED: TEMA30CA5 PO (23:34)
[2019-06-26 23:35] VITALS: BP 144/54
[2019-06-26] MEDS ORDERED: INSU100I31 SQ (23:40)
[2019-06-26] MEDS ORDERED: non-formulary drug (Amlodipine Besylate (Norvasc) 1 TAB) PO SCH (23:50)
[2019-06-27] MEDS: methylPREDNISolone sod succ/PF 40mg inj. IV SCH ×4 (01:34→20:33)
[2019-06-27 03:00] VITALS: BP 147/57
[2019-06-27] MEDS: ondansetron/PF 4mg/2ml inj IV PRN ×2 (05:29→17:08)
[2019-06-27 05:56] LABS: ALBUMIN 2.9 G/DL (3.4-5.0); ANION GAP 7 (8-16); BLOOD UREA NITROGEN 62 MG/DL (7-18); BUN/CREATININE RATIO 9.4 (5.4-32.0); CALCIUM 8.1 MG/DL (8.5-10.1); CHLORIDE 97 MMOL/L (99-107); CREATININE 6.58 MG/DL (0.60-1.10); GLUCOSE 337 MG/DL (70-104); MAGNESIUM 2.1 MG/DL (1.5-2.4); PHOSPHORUS 3.9 MG/DL (2.3-4.5); POTASSIUM 4.3 MMOL/L (3.5-5.1); SODIUM 135 MMOL/L (135-145); eGFR 8 ML/MIN
--- NOTE | 2019-06-27 06:31 | NUR ---
Patient in room PCU 3017. I have received report from Jimmy Li and had the opportunity to ask questions and assume patient care.
[2019-06-27 06:38] LABS: BASOPHILS % (AUTO) 0.6 % (0-1); EOSINOPHILS # (AUTO) 0.1 X10'3 (0-0.9); EOSINOPHILS % (AUTO) 1.3 % (0-6); HEMATOCRIT 26.2 % (42.0-52.0); HEMOGLOBIN 9.3 g/dl (14.0-17.9); LYMPHOCYTES # (AUTO) 0.3 X10'3 (1.1-4.8); LYMPHOCYTES % (AUTO) 3.9 % (21-51); MEAN CORPUSCULAR HEMOGLOBIN 34.1 PG (27.0-31.0); MEAN CORPUSCULAR HGB CONC 35.4 g/dL (33.0-36.5); MEAN CORPUSCULAR VOLUME 96.4 FL (78-98); MONOCYTES # (AUTO) 0.2 X10'3 (0-0.9); MONOCYTES % (AUTO) 1.9 % (2-12); NEUTROPHILS # (AUTO) 7.8 X10'3 (1.8-7.7); NEUTROPHILS % (AUTO) 92.3 % (42-75); PLATELET COUNT 141 X10'3 (140-440); RED BLOOD COUNT 2.72 X10'6 (4.70-6.10); RED CELL DISTRIBUTION WIDTH 15.6 % (11.5-14.5); WHITE BLOOD COUNT 8.4 X10'3 (4.5-11.0)
[2019-06-27 07:00] VITALS: BP 171/76
[2019-06-27] MEDS ORDERED: heparin 1,000unit/ml 10ml vial 10 ML IV ONE (07:07)
[2019-06-27] MEDS ORDERED: heparin 1,000 units/ml 10ml inj IV ONE (07:10)
[2019-06-27] MEDS: ipratropium/albuterol 3ml nebule NEB SCH ×3 (07:21→20:31)
[2019-06-27] MEDS: docusate sod 100mg capsule PO SCH (07:48)
[2019-06-27] MEDS: folic acid 1mg tablet PO SCH (07:49)
[2019-06-27] MEDS: folic acid/vitamin B complex w/vitamin C 0.8mg tablet PO SCH (07:49)
[2019-06-27] MEDS: losartan 50mg tablet PO SCH (07:49)
[2019-06-27] MEDS: metoprolol tartrate 50mg tablet PO SCH ×2 (07:49→20:32)
[2019-06-27] MEDS: famotidine 20mg tablet PO SCH ×2 (07:50→20:33)
[2019-06-27] MEDS: metolazone 2.5mg tablet PO SCH (07:51)
[2019-06-27] MEDS: heparin, porcine 5000 units/ml vial SQ SCH ×2 (07:52→20:00)
[2019-06-27] MEDS: insulin Lispro (HumaLOG) vial - multi-dose SQ SCH ×4 (07:57→21:29)
[2019-06-27] MEDS ORDERED: docusate sod 100mg capsule PO SCH (08:00)
[2019-06-27] MEDS: levoFLOXACIN-Levaquin 250mg/D5 50 ML IV SCH (08:02)
[2019-06-27 11:00] VITALS: BP 160/81
[2019-06-27] MEDS: proMETHazine 25mg tablet PO PRN ×2 (11:19→19:08)
[2019-06-27 15:00] VITALS: BP 145/60
--- NOTE | 2019-06-27 15:08 | NUR ---
DM Consult: A1C <7 and not appropriate for DM ed at this time. BELIA d/w RN regarding carb controlled addition to current diet order per MD approval. Addendum: 06/27/19 at [address] Amended: Links added.
[2019-06-27] MEDS ORDERED: HYDROcodone/acetaminophen 5mg/325mg tablet PO PRN (17:05)
--- NOTE | 2019-06-27 18:21 | NUR ---
Problems reprioritized. Patient report given, questions answered & plan of care reviewed with Jen MCKEON. Patient stable at transfer of care.
--- NOTE | 2019-06-27 18:22 | NUR ---
Orientee documentation: I have reviewed and agree with interventions, assessments performed and documented by Keerthi MCKEON. [facility]ee Medication Administration: For this medication-pass time frame, medication were reviewed, dispensed, administered and documented per hospital policy by Keerthi MCKEON.
[2019-06-27 19:00] VITALS: BP 178/78
[2019-06-27] MEDS: lactobacillus rhamnosus 10,000 MMU CELLS/CAPSULE PO SCH (20:33)
[2019-06-27] MEDS: amLODIPine 5mg tablet PO SCH (20:33)
[2019-06-27] MEDS: temazepam 15mg capsule PO SCH (20:33)
[2019-06-27] MEDS: calcium acetate 667mg (PhosLO) capsule PO SCH (20:39)
[2019-06-27] MEDS ORDERED: insulin glargine (Lantus) pen - multi-dose SQ SCH (21:00)
[2019-06-27] MEDS ORDERED: non-formulary drug (Temazepam* (Restoril*) 1 CAP) PO SCH (21:00)
[2019-06-27 23:00] VITALS: BP 160/69
[2019-06-28] MEDS: methylPREDNISolone sod succ/PF 40mg inj. IV SCH ×4 (01:11→21:04)
[2019-06-28 03:00] VITALS: BP 154/59
[2019-06-28 06:10] LABS: BASOPHILS % (AUTO) 0.1 % (0-1); EOSINOPHILS % (AUTO) 0 % (0-6); HEMATOCRIT 25.1 % (42.0-52.0); HEMOGLOBIN 8.9 g/dl (14.0-17.9); LYMPHOCYTES # (AUTO) 0.3 X10'3 (1.1-4.8); LYMPHOCYTES % (AUTO) 2.3 % (21-51); MEAN CORPUSCULAR HGB CONC 35.4 g/dL (33.0-36.5); MEAN CORPUSCULAR VOLUME 95.9 FL (78-98); MONOCYTES # (AUTO) 0.2 X10'3 (0-0.9); MONOCYTES % (AUTO) 1.2 % (2-12); NEUTROPHILS # (AUTO) 14.5 X10'3 (1.8-7.7); NEUTROPHILS % (AUTO) 96.4 % (42-75); PLATELET COUNT 148 X10'3 (140-440); RED BLOOD COUNT 2.62 X10'6 (4.70-6.10); RED CELL DISTRIBUTION WIDTH 15.5 % (11.5-14.5)
--- NOTE | 2019-06-28 06:13 | NUR ---
Patient in room PCU 3017. I have received report from Jen MCKEON and had the opportunity to ask questions and assume patient care.
[2019-06-28 06:42] LABS: ALBUMIN 2.9 G/DL (3.4-5.0); ANION GAP 10 (8-16); BLOOD UREA NITROGEN 53 MG/DL (7-18); BUN/CREATININE RATIO 9.6 (5.4-32.0); CALCIUM 8.3 MG/DL (8.5-10.1); CHLORIDE 97 MMOL/L (99-107); POTASSIUM 4.9 MMOL/L (3.5-5.1); SODIUM 135 MMOL/L (135-145); TOTAL CARBON DIOXIDE 28.1 MMOL/L (24-32); eGFR 10 ML/MIN
[2019-06-28 06:46] LABS: GLUCOSE 498 MG/DL (70-104)
--- NOTE | 2019-06-28 06:51 | NUR ---
Spoke with Angela Morales regarding the critical glucose of 498. New orders will be put in for insulin by [facility]ER and if patient refuses I am to put in a note.
[2019-06-28] MEDS ORDERED: insulin Lispro (HumaLOG) vial - multi-dose SQ ONE (07:00)
[2019-06-28 07:06] VITALS: BP 139/62
[2019-06-28] MEDS: folic acid/vitamin B complex w/vitamin C 0.8mg tablet PO SCH (07:32)
[2019-06-28] MEDS: lactobacillus rhamnosus 10,000 MMU CELLS/CAPSULE PO SCH ×2 (07:32→21:04)
[2019-06-28] MEDS: docusate sod 100mg capsule PO SCH (07:32)
[2019-06-28] MEDS: folic acid 1mg tablet PO SCH (07:32)
[2019-06-28] MEDS: metolazone 2.5mg tablet PO SCH (07:33)
[2019-06-28] MEDS: famotidine 20mg tablet PO SCH ×2 (07:33→21:04)
[2019-06-28] MEDS: calcium acetate 667mg (PhosLO) capsule PO SCH ×3 (07:33→21:03)
[2019-06-28] MEDS: heparin, porcine 5000 units/ml vial SQ SCH ×2 (07:33→20:00)
[2019-06-28] MEDS: proMETHazine 25mg tablet PO PRN ×2 (07:44→22:26)
[2019-06-28] MEDS: losartan 50mg tablet PO SCH ×2 (08:00→09:55)
[2019-06-28] MEDS: metoprolol tartrate 50mg tablet PO SCH ×3 (08:00→21:04)
[2019-06-28] MEDS: ipratropium/albuterol 3ml nebule NEB SCH ×3 (08:58→20:51)
[2019-06-28] MEDS ORDERED: insulin glargine (Lantus) pen - multi-dose SQ ONE (09:20)
[2019-06-28] MEDS: insulin Lispro (HumaLOG) vial - multi-dose SQ SCH ×3 (09:33→21:44)
[2019-06-28 11:00] VITALS: BP 148/70
[2019-06-28] MEDS: gabapentin 300mg capsule PO PRN (13:07)
--- NOTE | 2019-06-28 14:15 | NUR ---
Spoke with Dr. Campos at the bedside regarding the patients high blood glucose values. Per Dr. Campos the patient's lantus is to have the following parameters for tonight 06/28/19. Bedtime BG less than 120 then hold the lantus, if the bedtime BG is less than 200 give 15 units of lantus, if the bedtime BG is greater than 200 then give 30 units of lantus. Misc. Nursing order was entered and will update nightshift.
[2019-06-28] MEDS ORDERED: levoFLOXACIN 250mg tablet PO ONE (14:35)
[2019-06-28 15:00] VITALS: BP 127/52
[2019-06-28] MEDS: dextrose ORAL solution 15 GM/59 ML bottle PO PRN ×2 (15:32→15:54)
--- NOTE | 2019-06-28 15:36 | NUR ---
Patients blood sugar is 92 at this time. Per patient he will bottom out if he does not receive some sugar. Patient is complaining of dizziness, blurred vision, and not "feeling right." Upon primary RN's approval the patient has been given a glucose oral shot of 15g. Will re-check the patients blood sugar in 15 minutes. Will continue to monitor patient.
--- NOTE | 2019-06-28 15:55 | NUR ---
Patients blood sugar is 94 at this time. Per patient he will bottom out if he does not receive some sugar. Patient is complaining of dizziness, blurred vision, and not "feeling right." Upon primary RN's approval the patient has been given a glucose oral shot of 15g. Will re-check the patients blood sugar in 15 minutes. Will continue to monitor patient.
[2019-06-28 18:00] VITALS: BP 137/66
--- NOTE | 2019-06-28 18:27 | NUR ---
Problems reprioritized. Patient report given, questions answered & plan of care reviewed with Desi MCKEON. Scott stable at transfer of care.
--- NOTE | 2019-06-28 18:39 | NUR ---
Patient in room PCU 3017. I have received report from Yazmin MCKEON and had the opportunity to ask questions and assume patient care.
--- NOTE | 2019-06-28 19:00 | NUR ---
Patient refused to receive any insulin after dinner time due to his sensitivity with the insulin he had received earlier.
[2019-06-28] MEDS ORDERED: insulin glargine (Lantus) pen - multi-dose SQ SCH (21:00)
[2019-06-28] MEDS: amLODIPine 5mg tablet PO SCH (21:04)
[2019-06-28] MEDS: temazepam 15mg capsule PO SCH (21:05)
[2019-06-28] MEDS ORDERED: lactulose 20gm/30ml cup PO PRN (21:45)
[2019-06-28 22:00] VITALS: BP 129/50
[2019-06-29] MEDS: insulin Lispro (HumaLOG) vial - multi-dose SQ SCH ×2 (01:27→09:34)
[2019-06-29] MEDS: methylPREDNISolone sod succ/PF 40mg inj. IV SCH ×3 (01:29→14:00)
--- NOTE | 2019-06-29 01:39 | NUR ---
Checked patient's blood sugar since at bedtime it was 453 and he had received 8 units of Humalog per the night time correctional scale along with the ordered 30 units of Lantus. When checked he his level was actually higher at 477. August CHIEF PROGRAM OFFICER notified and she said to cover him again with the night time correctional scale but bump him from a level 4 to a level 5 even though typically patient's don't increase levels at night time, he is getting Solumedrol and this is keeping his sugars high. Patient now given an additional 14 units of Humalog per the night time correctional coverage scale.
[2019-06-29 02:00] VITALS: BP 137/50
[2019-06-29 05:25] LABS: BASOPHILS % (AUTO) 0 % (0-1); EOSINOPHILS % (AUTO) 0 % (0-6); HEMATOCRIT 25.4 % (42.0-52.0); HEMOGLOBIN 8.9 g/dl (14.0-17.9); LYMPHOCYTES # (AUTO) 0.3 X10'3 (1.1-4.8); LYMPHOCYTES % (AUTO) 1.5 % (21-51); MEAN CORPUSCULAR HGB CONC 35.2 g/dL (33.0-36.5); MEAN CORPUSCULAR VOLUME 96.7 FL (78-98); MEAN PLATELET VOLUME 6.9 FL (7.4-10.4); MONOCYTES # (AUTO) 0.3 X10'3 (0-0.9); MONOCYTES % (AUTO) 1.9 % (2-12); NEUTROPHILS # (AUTO) 16.3 X10'3 (1.8-7.7); NEUTROPHILS % (AUTO) 96.6 % (42-75); PLATELET COUNT 172 X10'3 (140-440); RED BLOOD COUNT 2.62 X10'6 (4.70-6.10); RED CELL DISTRIBUTION WIDTH 15.4 % (11.5-14.5); WHITE BLOOD COUNT 16.9 X10'3 (4.5-11.0)
[2019-06-29 06:00] VITALS: BP 141/83
[2019-06-29 06:18] LABS: ANION GAP 15 (8-16); BLOOD UREA NITROGEN 82 MG/DL (7-18); BUN/CREATININE RATIO 10.6 (5.4-32.0); CALCIUM 8.6 MG/DL (8.5-10.1); CHLORIDE 95 MMOL/L (99-107); CREATININE 7.77 MG/DL (0.60-1.10); GLUCOSE 341 MG/DL (70-104); MAGNESIUM 2.2 MG/DL (1.5-2.4); PHOSPHORUS 4.9 MG/DL (2.3-4.5); POTASSIUM 4.6 MMOL/L (3.5-5.1); SODIUM 135 MMOL/L (135-145); TOTAL CARBON DIOXIDE 24.7 MMOL/L (24-32); eGFR 7 ML/MIN
--- NOTE | 2019-06-29 06:39 | NUR ---
Problems reprioritized. Patient report given, questions answered & plan of care reviewed with Elana MCKEON.
--- NOTE | 2019-06-29 06:41 | NUR ---
Patient in room PCU 3017. I have received report from Desi MCKEON and had the opportunity to ask questions and assume patient care.
[2019-06-29] MEDS: ipratropium/albuterol 3ml nebule NEB SCH ×2 (07:47→15:03)
[2019-06-29] MEDS: heparin, porcine 5000 units/ml vial SQ SCH (08:00)
[2019-06-29] MEDS: metolazone 2.5mg tablet PO SCH (08:00)
[2019-06-29] MEDS ORDERED: normal saline 1000ml 250 ML IV PRN (08:31)
[2019-06-29] MEDS ORDERED: epoetin 20,000 units/ml inj IV ONE (08:35)
[2019-06-29] MEDS: levoFLOXACIN-Levaquin 250mg/D5 50 ML IV SCH (08:54)
[2019-06-29] MEDS: docusate sod 100mg capsule PO SCH (08:55)
[2019-06-29] MEDS: folic acid 1mg tablet PO SCH (08:57)
[2019-06-29] MEDS: losartan 50mg tablet PO SCH (08:57)
[2019-06-29] MEDS: metoprolol tartrate 50mg tablet PO SCH (08:57)
[2019-06-29] MEDS: lactobacillus rhamnosus 10,000 MMU CELLS/CAPSULE PO SCH (08:57)
[2019-06-29] MEDS: folic acid/vitamin B complex w/vitamin C 0.8mg tablet PO SCH (08:57)
[2019-06-29] MEDS: calcium acetate 667mg (PhosLO) capsule PO SCH ×2 (08:57→13:00)
[2019-06-29] MEDS: famotidine 20mg tablet PO SCH (08:58)
[2019-06-29] MEDS: ondansetron/PF 4mg/2ml inj IV PRN (09:30)
[2019-06-29] MEDS: gabapentin 300mg capsule PO PRN (09:30)
--- NOTE | 2019-06-29 09:42 | NUR ---
Patient had a blood sugar of 304 before breakfast. He ate 33 carbs. I was going to administer 26 units of Humalog per the nutritional tool guidlines. Patient refused for me to administer 26 units and insisted I only administer 15 units of Humalog.
[2019-06-29 11:00] VITALS: BP 132/71
[2019-06-29 15:00] VITALS: BP 139/72
--- NOTE | 2019-06-29 16:44 | NUR ---
Patient stable for discharge per MD orders. All discharge instructions reviewed with patient and all questions were answered. Patient will follow up with dialysis clinic in 1 day. No new medications were ordered. PIV discontinued, cannula intact. Tele monitor discontinued, notified telecommunications repairer of discharge. All belongings were collected and sent with patient. Patient refused wheelchair, and walked out accompanied by friend.
== END 2019-06-29 16:43 | disposition home or self-care (01) | DRG 682 ==
LOC: EDBD → ER 17:01 → ED HOLD 22:22 → EDBEDREQ 22:24 → PCU 3S 23:25
PROVIDERS: ADMIT Internal Medicine Critical Care Medicine; ATTEND Internal Medicine Critical Care Medicine
PROC: 5A1D70Z Performance of Urinary Filtration, Intermittent, Less than 6 Hours Per Day (ICD-10-PCS; 2019-06-27)
PROC: 5A1D70Z Performance of Urinary Filtration, Intermittent, Less than 6 Hours Per Day (ICD-10-PCS; principal; 2019-06-29)
DX: I13.11 Hypertensive heart and chronic kidney disease without heart failure, with stage 5 chronic kidney disease, or end stage renal disease (principal); N18.6 End stage renal disease; Z94.4 Liver transplant status; J44.1 Chronic obstructive pulmonary disease with (acute) exacerbation; E87.70 Fluid overload, unspecified; K74.60 Unspecified cirrhosis of liver; E11.22 Type 2 diabetes mellitus with diabetic chronic kidney disease; B19.20 Unspecified viral hepatitis C without hepatic coma; R06.00 Dyspnea, unspecified; I48.91 Unspecified atrial fibrillation; Z99.2 Dependence on renal dialysis; Z99.81 Dependence on supplemental oxygen; E13.22 Other specified diabetes mellitus with diabetic chronic kidney disease; D63.1 Anemia in chronic kidney disease
CPT/HCPCS: 36415; 71045; 71046; 80048; 80053; 82948; 83036; 83605; 83735; 83880; 84100; 84145; 85025; 85610; 85730; 87040; 87081; 90935; 93005; 93306; 94640; 94760; 97161; 97530; 99285; G0257; G0378; J1644; J1815; J1956; J2405; J2920; Q0169; Q4081

== ENCOUNTER 2019-07-16 14:40 | Inpatient (IN) | payer MEDICARE, MEDICAID ==
[~2019-07-16] VITALS: Ht 185.4 cm; Wt 81.4 kg
[~2019-07-16 14:40] MED LIST changes: +AMLO10TA4 PO; +DOCU-148 PO; +FOLI0.4T14 PO; -FOLI0.4T2 PO; +INSU100I31 SQ; -INSU100V9 SQ; -PANT-47 PO; -TEMA15CA5 PO; +TEMA30CA5 PO
[2019-07-16 15:32] LABS: PARTIAL THROMBOPLASTIN TIME 31 SECONDS (22-32)
--- NOTE | 2019-07-16 15:33 | NUR ---
PATIENT HAS A LEFT FOREARM FISTULA: + BRUIT +THRILL PATIENT HAD 2.8 LITERS OF FLUID REMOVED TODAY WITH HD PATIENT JUST FINISHED A COURSE OF LEVAQUIN FOR PNEUNMONIA REPORTS SPO2 DOWN TO 70% WHEN WALKING: PATIENT WEARS 2-4 LITERS NC AT HOME
--- NOTE | 2019-07-16 15:36 | NUR ---
PATIENT DOES NOT MAKE URINE
[2019-07-16 15:40] LABS: BASOPHILS % (AUTO) 0.8 % (0-1); EOSINOPHILS # (AUTO) 0.2 X10'3 (0-0.9); EOSINOPHILS % (AUTO) 5.5 % (0-6); HEMOGLOBIN 7.5 g/dl (14.0-17.9); LYMPHOCYTES # (AUTO) 0.3 X10'3 (1.1-4.8); LYMPHOCYTES % (AUTO) 8.4 % (21-51); MEAN CORPUSCULAR HEMOGLOBIN 33.5 PG (27.0-31.0); MEAN CORPUSCULAR HGB CONC 35.7 g/dL (33.0-36.5); MEAN PLATELET VOLUME 6.2 FL (7.4-10.4); MONOCYTES # (AUTO) 0.6 X10'3 (0-0.9); MONOCYTES % (AUTO) 17.2 % (2-12); NEUTROPHILS # (AUTO) 2.4 X10'3 (1.8-7.7); NEUTROPHILS % (AUTO) 68.1 % (42-75); PLATELET COUNT 157 X10'3 (140-440); RED BLOOD COUNT 2.25 X10'6 (4.70-6.10); RED CELL DISTRIBUTION WIDTH 15.7 % (11.5-14.5); WHITE BLOOD COUNT 3.5 X10'3 (4.5-11.0)
[2019-07-16 15:44] LABS: ALANINE AMINOTRANSFERASE 27 U/L (12-78); ALBUMIN 2.6 G/DL (3.4-5.0); ALBUMIN/GLOBULIN RATIO 0.7 (1.1-1.5); ALKALINE PHOSPHATASE 296 IU/L (46-116); ANION GAP 8 (8-16); ASPARTATE AMINO TRANSFERASE 39 U/L (10-37); BILIRUBIN,TOTAL 1.2 MG/DL (0.1-1.0); BLOOD UREA NITROGEN 43 MG/DL (7-18); BUN/CREATININE RATIO 9.3 (5.4-32.0); CALCIUM 7.9 MG/DL (8.5-10.1); CHLORIDE 97 MMOL/L (99-107); CREATININE 4.62 MG/DL (0.60-1.10); GLUCOSE 222 MG/DL (70-104); POTASSIUM 3.6 MMOL/L (3.5-5.1); SODIUM 136 MMOL/L (135-145); TOTAL CARBON DIOXIDE 31.4 MMOL/L (24-32); TOTAL PROTEIN 6.1 G/DL (6.4-8.2); eGFR 13 ML/MIN
[2019-07-16 15:45] LABS: HEMATOCRIT 21.1 % (42.0-52.0)
[2019-07-16] MEDS ORDERED: levoFLOXACIN-Levaquin 500mg/D5 100 ML IV ONE (15:55)
[2019-07-16] MEDS ORDERED: acetaminophen 325mg tablet PO PRN (16:20)
[2019-07-16] MEDS ORDERED: vancomycin/NS 1 GM ADD-VANTAGE 250 ML IV PRN (16:20)
[2019-07-16] MEDS: cefepime 1GM in D5W 50mL 50 ML IV SCH (17:01)
[2019-07-16] MEDS ORDERED: METO5TAB7 PO (17:14)
[2019-07-16] MEDS ORDERED: FOLI1TAB34 PO (17:14)
[2019-07-16] MEDS ORDERED: ALPR1TAB7 PO (17:29)
[2019-07-16] MEDS ORDERED: HYDR-3972 PO (17:29)
[2019-07-16] MEDS ORDERED: LORA-268 PO (17:31)
[2019-07-16] MEDS ORDERED: [UNRECOGNIZED DRUG - CODE] IV (17:38)
[2019-07-16] MEDS ORDERED: FURO80TA3 PO (17:41)
[2019-07-16] MEDS ORDERED: LANS15CA18 PO (17:53)
[2019-07-16] MEDS ORDERED: NOVLG (17:54)
[2019-07-16 17:57] LABS: % IRON SATURATION 15 % (11-46); IRON 23 UG/DL (53-167); TOTAL IRON BINDING CAPACITY 151 UG/DL (259-388)
[2019-07-16] MEDS: ondansetron/PF 4mg/2ml inj IV PRN (17:59)
--- NOTE | 2019-07-16 18:04 | NUR ---
called pharmacy to obtain vancomycin. Informed pharmacy that patient has not been on Vancomycin. Therefore, no trough was drawn.
--- NOTE | 2019-07-16 18:16 | NUR ---
WITH PATIENT'S PERMISSION, I UPDATED THE PATIENT'S DAUGHTER MELISSA [phone]
[2019-07-16] MEDS ORDERED: CALC667T6 PO (18:26)
--- NOTE | 2019-07-16 19:00 | NUR ---
PATIENT TO GO TO ROOM 3010A, PCU ON TELE VIA GURNEY, MONITORED
[2019-07-16 19:10] VITALS: BP 152/58
[2019-07-16] MEDS: docusate sod 100mg capsule PO SCH (19:47)
[2019-07-16] MEDS: heparin, porcine 5000 units/ml vial SQ SCH (19:48)
[2019-07-16] MEDS ORDERED: ALPRAZolam 0.25mg tablet PO ONE (21:00)
[2019-07-16] MEDS: temazepam 15mg capsule PO PRN (22:35)
[2019-07-16 23:00] VITALS: BP 134/53
[2019-07-17 03:00] VITALS: BP 121/52
[2019-07-17 06:00] VITALS: BP 153/71
--- NOTE | 2019-07-17 06:15 | NUR ---
Patient in room PCU 3010. I have received report from LINDA Li and had the opportunity to ask questions and assume patient care. Patient currently resting in bed, bed locked and low, call light in reach, no acute distress, will continue to monitor.
[2019-07-17 06:29] LABS: ALANINE AMINOTRANSFERASE 24 U/L (12-78); ALBUMIN 2.4 G/DL (3.4-5.0); ALBUMIN/GLOBULIN RATIO 0.7 (1.1-1.5); ALKALINE PHOSPHATASE 251 IU/L (46-116); ANION GAP 8 (8-16); ASPARTATE AMINO TRANSFERASE 31 U/L (10-37); BILIRUBIN,TOTAL 1.1 MG/DL (0.1-1.0); BLOOD UREA NITROGEN 52 MG/DL (7-18); BUN/CREATININE RATIO 8.4 (5.4-32.0); CALCIUM 7.5 MG/DL (8.5-10.1); CHLORIDE 98 MMOL/L (99-107); CREATININE 6.19 MG/DL (0.60-1.10); GLUCOSE 185 MG/DL (70-104); MAGNESIUM 1.7 MG/DL (1.5-2.4); PHOSPHORUS 3.9 MG/DL (2.3-4.5); POTASSIUM 3.6 MMOL/L (3.5-5.1); SODIUM 136 MMOL/L (135-145); TOTAL CARBON DIOXIDE 30.4 MMOL/L (24-32); TOTAL PROTEIN 5.7 G/DL (6.4-8.2); VANCOMYCIN,RANDOM 12.1 UG/ML; eGFR 9 ML/MIN
[2019-07-17] MEDS ORDERED: dextrose ORAL solution 15 GM/59 ML bottle PO PRN ×2 (06:35)
[2019-07-17] MEDS ORDERED: glucagon, human recombinant 1mg kit SUBCUT PRN (06:35)
[2019-07-17] MEDS ORDERED: MESSAGE TO PHARMACY PO ONE (06:35)
[2019-07-17] MEDS ORDERED: dextrose 50%-water 50ml dispensing syringe IV PRN ×2 (06:35)
[2019-07-17 07:03] LABS: HEMOGLOBIN 7.5 g/dl (14.0-17.9); MEAN CORPUSCULAR HEMOGLOBIN 33.7 PG (27.0-31.0); MEAN CORPUSCULAR HGB CONC 35.5 g/dL (33.0-36.5); MEAN PLATELET VOLUME 6.2 FL (7.4-10.4); PLATELET COUNT 138 X10'3 (140-440); RED BLOOD COUNT 2.24 X10'6 (4.70-6.10); RED CELL DISTRIBUTION WIDTH 16.3 % (11.5-14.5); WHITE BLOOD COUNT 2.7 X10'3 (4.5-11.0)
[2019-07-17 07:06] LABS: HEMATOCRIT 21.3 % (42.0-52.0)
--- NOTE | 2019-07-17 07:14 | NUR ---
received critical value hematocrit 21.3, called to [facility] Ochoa, will hold heparin as patient has recent hx of GI bleed. otherwise no new orders received
[2019-07-17] MEDS: docusate sod 100mg capsule PO SCH ×2 (07:20→20:00)
[2019-07-17] MEDS: cefepime 1GM in D5W 50mL 50 ML IV SCH (07:25)
[2019-07-17] MEDS: ondansetron/PF 4mg/2ml inj IV PRN ×2 (07:38→17:25)
[2019-07-17 07:45] LABS: TOTAL CELLS COUNTED 100
[2019-07-17 07:46] LABS: ANISOCYTOSIS 1+; PLATELET ESTIMATE DECREASED
[2019-07-17] MEDS: heparin, porcine 5000 units/ml vial SQ SCH ×2 (08:00→20:00)
[2019-07-17] MEDS: insulin Lispro (HumaLOG) vial - multi-dose SQ SCH ×4 (09:09→21:43)
[2019-07-17 10:03] LABS: FERRITIN 929 NG/ML (26-388)
[2019-07-17] MEDS: folic acid/vitamin B complex w/vitamin C 0.8mg tablet PO SCH (10:13)
[2019-07-17] MEDS: folic acid 1mg tablet PO SCH (10:13)
[2019-07-17] MEDS: losartan 50mg tablet PO SCH (10:14)
[2019-07-17] MEDS: ALPRAZolam 0.25mg tablet PO PRN ×2 (10:14→21:28)
--- NOTE | 2019-07-17 10:49 | NUR ---
DM consult: Pt with A1c 6.1, DM education not warranted at this time. Will continue to follow. Addendum: 07/17/19 at [address] Amended: Links added.
[2019-07-17 11:17] VITALS: BP 157/69
[2019-07-17] MEDS: calcium acetate 667mg (PhosLO) capsule PO SCH ×2 (12:00→17:21)
[2019-07-17] MEDS: furosemide 40mg tablet PO SCH ×2 (13:44→21:00)
[2019-07-17] MEDS: ipratropium/albuterol 3ml nebule IH SCH ×2 (14:59→19:44)
[2019-07-17 15:00] VITALS: BP 150/71
[2019-07-17] MEDS: HYDROcodone/acetaminophen 10/325mg tab PO PRN (17:21)
--- NOTE | 2019-07-17 18:08 | NUR ---
Problems reprioritized. Patient report given, questions answered & plan of care reviewed with LINDA Li.
[2019-07-17 19:00] VITALS: BP 133/60
[2019-07-17] MEDS: insulin glargine (Lantus) pen - multi-dose SQ SCH (21:00)
[2019-07-17] MEDS: amLODIPine 5mg tablet PO SCH (21:28)
[2019-07-17] MEDS: metoprolol tartrate 50mg tablet PO SCH (21:29)
[2019-07-17] MEDS: temazepam 15mg capsule PO PRN (21:30)
[2019-07-17 23:00] VITALS: BP 130/57
[2019-07-18] MEDS: ipratropium/albuterol 3ml nebule IH SCH ×7 (00:04→23:00)
[2019-07-18 03:00] VITALS: BP 134/71
[2019-07-18] MEDS: VANCOMYCIN LEVEL IV SCH (03:00)
[2019-07-18] MEDS: ondansetron/PF 4mg/2ml inj IV PRN ×2 (04:28→11:52)
[2019-07-18 05:15] LABS: ALANINE AMINOTRANSFERASE 19 U/L (12-78); ALBUMIN 2.3 G/DL (3.4-5.0); ALBUMIN/GLOBULIN RATIO 0.7 (1.1-1.5); ALKALINE PHOSPHATASE 238 IU/L (46-116); ANION GAP 12 (8-16); ASPARTATE AMINO TRANSFERASE 30 U/L (10-37); BILIRUBIN,TOTAL 0.9 MG/DL (0.1-1.0); BLOOD UREA NITROGEN 69 MG/DL (7-18); BUN/CREATININE RATIO 8.3 (5.4-32.0); CALCIUM 7.5 MG/DL (8.5-10.1); CHLORIDE 95 MMOL/L (99-107); GLUCOSE 195 MG/DL (70-104); MAGNESIUM 1.8 MG/DL (1.5-2.4); PHOSPHORUS 5.5 MG/DL (2.3-4.5); POTASSIUM 3.7 MMOL/L (3.5-5.1); SODIUM 134 MMOL/L (135-145); TOTAL CARBON DIOXIDE 27.1 MMOL/L (24-32); TOTAL PROTEIN 5.6 G/DL (6.4-8.2); VANCOMYCIN,RANDOM 9.5 UG/ML; eGFR 6 ML/MIN
[2019-07-18 05:45] LABS: HEMOGLOBIN 7.3 g/dl (14.0-17.9); MEAN CORPUSCULAR HEMOGLOBIN 33.6 PG (27.0-31.0); MEAN CORPUSCULAR HGB CONC 35.5 g/dL (33.0-36.5); MEAN CORPUSCULAR VOLUME 94.5 FL (78-98); MEAN PLATELET VOLUME 6.1 FL (7.4-10.4); PLATELET COUNT 122 X10'3 (140-440); RED BLOOD COUNT 2.16 X10'6 (4.70-6.10); RED CELL DISTRIBUTION WIDTH 15.9 % (11.5-14.5); WHITE BLOOD COUNT 2.6 X10'3 (4.5-11.0)
[2019-07-18 05:49] LABS: HEMATOCRIT 20.4 % (42.0-52.0)
--- NOTE | 2019-07-18 06:10 | NUR ---
Patient in room PCU 3010. I have received report from LINDA Li and had the opportunity to ask questions and assume patient care. Patient resting in bed, denies any needs at this time. Will continue to monitor.
[2019-07-18] MEDS ORDERED: vancomycin/NS 1 GM ADD-VANTAGE 250 ML IV ONE (06:50)
[2019-07-18 06:53] LABS: ANISOCYTOSIS 1+; PLATELET ESTIMATE DECREASED; TOTAL CELLS COUNTED 100
[2019-07-18 07:10] VITALS: BP 141/64
[2019-07-18] MEDS: furosemide 40mg tablet PO SCH ×3 (08:00→20:53)
[2019-07-18] MEDS: docusate sod 100mg capsule PO SCH ×3 (08:00→20:53)
[2019-07-18] MEDS: heparin, porcine 5000 units/ml vial SQ SCH ×2 (08:00→20:00)
[2019-07-18] MEDS: insulin Lispro (HumaLOG) vial - multi-dose SQ SCH ×3 (08:40→18:57)
[2019-07-18] MEDS: ALPRAZolam 0.25mg tablet PO PRN ×2 (08:44→18:54)
[2019-07-18] MEDS: cefepime 1GM in D5W 50mL 50 ML IV SCH (08:44)
[2019-07-18] MEDS: folic acid/vitamin B complex w/vitamin C 0.8mg tablet PO SCH (08:45)
[2019-07-18] MEDS: calcium acetate 667mg (PhosLO) capsule PO SCH ×3 (08:45→17:10)
[2019-07-18] MEDS: metoprolol tartrate 50mg tablet PO SCH ×2 (08:45→20:00)
[2019-07-18] MEDS: folic acid 1mg tablet PO SCH (08:46)
[2019-07-18] MEDS: losartan 50mg tablet PO SCH (08:47)
[2019-07-18 11:00] VITALS: BP 146/69
[2019-07-18] MEDS: HYDROcodone/acetaminophen 10/325mg tab PO PRN ×2 (11:59→17:21)
[2019-07-18] MEDS ORDERED: heparin 1,000 units/ml 10ml inj IV ONE (12:55)
--- NOTE | 2019-07-18 14:24 | NUR ---
Called and spoke with Maria Clark regarding blood transfusion. Maria deferred and asked that I speak to dialysis nurse to inquire about orders received by Dr. Gramajo. Per dialysis nurse, she was given a verbal order from Dr. Gramajo for dialysis, but not for blood transfusion.
[2019-07-18 15:00] VITALS: BP 143/72
--- NOTE | 2019-07-18 18:22 | NUR ---
Problems reprioritized. Patient report given, questions answered & plan of care reviewed with Rivas RN.
--- NOTE | 2019-07-18 18:30 | NUR ---
Patient in room PCU 3010. I have received report from Yazmin Alvarado RN and had the opportunity to ask questions and assume patient care.
[2019-07-18 19:00] VITALS: BP 151/62
[2019-07-18] MEDS: temazepam 15mg capsule PO PRN (20:53)
[2019-07-18] MEDS: amLODIPine 5mg tablet PO SCH (21:00)
[2019-07-18] MEDS: insulin glargine (Lantus) pen - multi-dose SQ SCH (21:00)
--- NOTE | 2019-07-18 21:24 | NUR ---
MILIND Holt NOTIFIED pt refused heparin stating "I get a GI bleed every time I take that", pt refused both metoprolol and amlodipin stating "I never take blood pressure medication after hemodylasis" (pt recieved HD today). additionally pt refused Lantus tonight stating "I think if I took that my blood sugar would bottom out". provided education and provider notified.
[2019-07-18 23:00] VITALS: BP 123/49
[2019-07-19 03:00] VITALS: BP 127/56
[2019-07-19] MEDS: VANCOMYCIN LEVEL IV SCH (03:00)
[2019-07-19] MEDS: ipratropium/albuterol 3ml nebule IH SCH ×6 (03:00→23:25)
[2019-07-19 06:16] LABS: BASOPHILS % (AUTO) 0.8 % (0-1); EOSINOPHILS # (AUTO) 0.3 X10'3 (0-0.9); EOSINOPHILS % (AUTO) 11.6 % (0-6); HEMOGLOBIN 7.4 g/dl (14.0-17.9); LYMPHOCYTES # (AUTO) 0.3 X10'3 (1.1-4.8); LYMPHOCYTES % (AUTO) 11.7 % (21-51); MEAN CORPUSCULAR HGB CONC 35.8 g/dL (33.0-36.5); MEAN CORPUSCULAR VOLUME 94.9 FL (78-98); MEAN PLATELET VOLUME 6.3 FL (7.4-10.4); MONOCYTES # (AUTO) 0.5 X10'3 (0-0.9); MONOCYTES % (AUTO) 16.3 % (2-12); NEUTROPHILS # (AUTO) 1.7 X10'3 (1.8-7.7); NEUTROPHILS % (AUTO) 59.6 % (42-75); PLATELET COUNT 118 X10'3 (140-440); RED BLOOD COUNT 2.19 X10'6 (4.70-6.10); RED CELL DISTRIBUTION WIDTH 16.2 % (11.5-14.5); WHITE BLOOD COUNT 2.9 X10'3 (4.5-11.0)
--- NOTE | 2019-07-19 06:19 | NUR ---
Problems reprioritized. Patient report given, questions answered & plan of care reviewed with Yazmin Alvarado RN.
[2019-07-19 06:21] LABS: HEMATOCRIT 20.8 % (42.0-52.0)
--- NOTE | 2019-07-19 06:27 | NUR ---
Patient in room PCU 3010. I have received report from LINDA Hathaway and had the opportunity to ask questions and assume patient care. Critical hct result called into Paresh Holt NP. No new orders.
[2019-07-19 06:37] LABS: ANION GAP 8 (8-16); BLOOD UREA NITROGEN 26 MG/DL (7-18); BUN/CREATININE RATIO 5.3 (5.4-32.0); CALCIUM 7.8 MG/DL (8.5-10.1); CHLORIDE 99 MMOL/L (99-107); CREATININE 4.95 MG/DL (0.60-1.10); GLUCOSE 221 MG/DL (70-104); MAGNESIUM 1.7 MG/DL (1.5-2.4); PHOSPHORUS 4.4 MG/DL (2.3-4.5); POTASSIUM 4.7 MMOL/L (3.5-5.1); SODIUM 136 MMOL/L (135-145); eGFR 12 ML/MIN
[2019-07-19 06:38] LABS: ALANINE AMINOTRANSFERASE 19 U/L (12-78); ALBUMIN 2.4 G/DL (3.4-5.0); ALBUMIN/GLOBULIN RATIO 0.7 (1.1-1.5); ALKALINE PHOSPHATASE 225 IU/L (46-116); ASPARTATE AMINO TRANSFERASE 27 U/L (10-37); TOTAL PROTEIN 5.8 G/DL (6.4-8.2); VANCOMYCIN,RANDOM 14.1 UG/ML
[2019-07-19 06:41] LABS: ANISOCYTOSIS 1+; BASOPHILS % (MANUAL) 1 % (0-1); EOSINOPHILS % (MANUAL) 9 % (0-6); HYPOCHROMASIA 1+; LYMPHOCYTES % (MANUAL) 8 % (21-51); MONOCYTES % (MANUAL) 15 % (2-12); NEUTROPHILS % (MANUAL) 65 % (42-75); PLATELET ESTIMATE DECREASED; REACTIVE LYMPHOCYTES % 2 % (0-0); ROULEAUX 1+; TOTAL CELLS COUNTED 100
[2019-07-19 06:56] VITALS: BP 144/63
[2019-07-19] MEDS: docusate sod 100mg capsule PO SCH ×3 (08:00→21:12)
[2019-07-19] MEDS: heparin, porcine 5000 units/ml vial SQ SCH ×2 (08:00→20:00)
[2019-07-19] MEDS: ondansetron/PF 4mg/2ml inj IV PRN ×2 (08:04→16:23)
[2019-07-19] MEDS: calcium acetate 667mg (PhosLO) capsule PO SCH ×3 (08:04→17:16)
[2019-07-19] MEDS: folic acid 1mg tablet PO SCH (08:05)
[2019-07-19] MEDS: furosemide 40mg tablet PO SCH ×3 (08:05→21:12)
[2019-07-19] MEDS: metoprolol tartrate 50mg tablet PO SCH ×2 (08:05→21:13)
[2019-07-19] MEDS: losartan 50mg tablet PO SCH (08:05)
[2019-07-19] MEDS: ALPRAZolam 0.25mg tablet PO PRN ×2 (08:06→17:16)
[2019-07-19] MEDS: cefepime 1GM in D5W 50mL 50 ML IV SCH (08:06)
[2019-07-19] MEDS: folic acid/vitamin B complex w/vitamin C 0.8mg tablet PO SCH (08:06)
[2019-07-19] MEDS: insulin Lispro (HumaLOG) vial - multi-dose SQ SCH ×2 (08:12→19:12)
[2019-07-19 11:00] VITALS: BP 146/65
[2019-07-19] MEDS: HYDROcodone/acetaminophen 10/325mg tab PO PRN ×3 (12:16→21:12)
[2019-07-19 15:00] VITALS: BP 161/69
--- NOTE | 2019-07-19 18:05 | NUR ---
Problems reprioritized. Patient report given, questions answered & plan of care reviewed with Rivas RN.
--- NOTE | 2019-07-19 18:30 | NUR ---
Patient in room PCU 3010. I have received report from Yazmin Alvarado RN and had the opportunity to ask questions and assume patient care.
[2019-07-19 19:00] VITALS: BP 148/66
--- NOTE | 2019-07-19 19:12 | NUR ---
INSULIN DOSE per our protocol pt should receive 11 units, pt decides his own medication amounts, pt agreed to only 9 units. Provider aware.
[2019-07-19] MEDS: insulin glargine (Lantus) pen - multi-dose SQ SCH (21:00)
--- NOTE | 2019-07-19 21:05 | NUR ---
MILIND FOLEY NOTIFIED pt bp is 151/68 and HR of 87, pt will take full dose of norvasc but refusing half of metoprolol, TRANSMISSION BUILDER aware.
[2019-07-19] MEDS: temazepam 15mg capsule PO PRN (21:10)
[2019-07-19] MEDS: amLODIPine 5mg tablet PO SCH (21:12)
[2019-07-19 23:00] VITALS: BP 139/67
[2019-07-20 03:00] VITALS: BP 164/84
[2019-07-20] MEDS: VANCOMYCIN LEVEL IV SCH (03:00)
[2019-07-20] MEDS: ipratropium/albuterol 3ml nebule IH SCH ×6 (03:55→23:30)
[2019-07-20] MEDS: ondansetron/PF 4mg/2ml inj IV PRN ×3 (04:05→16:38)
[2019-07-20] MEDS: HYDROcodone/acetaminophen 10/325mg tab PO PRN ×4 (04:07→21:03)
[2019-07-20 05:53] LABS: BASOPHILS % (AUTO) 0.8 % (0-1); EOSINOPHILS # (AUTO) 0.4 X10'3 (0-0.9); EOSINOPHILS % (AUTO) 12.3 % (0-6); HEMOGLOBIN 7.5 g/dl (14.0-17.9); LYMPHOCYTES # (AUTO) 0.6 X10'3 (1.1-4.8); LYMPHOCYTES % (AUTO) 17.4 % (21-51); MEAN CORPUSCULAR HEMOGLOBIN 33.5 PG (27.0-31.0); MEAN CORPUSCULAR HGB CONC 35.4 g/dL (33.0-36.5); MEAN CORPUSCULAR VOLUME 94.7 FL (78-98); MEAN PLATELET VOLUME 6.2 FL (7.4-10.4); MONOCYTES # (AUTO) 0.6 X10'3 (0-0.9); MONOCYTES % (AUTO) 17.4 % (2-12); NEUTROPHILS # (AUTO) 1.6 X10'3 (1.8-7.7); NEUTROPHILS % (AUTO) 52.1 % (42-75); PLATELET COUNT 108 X10'3 (140-440); RED BLOOD COUNT 2.23 X10'6 (4.70-6.10); RED CELL DISTRIBUTION WIDTH 16.5 % (11.5-14.5); WHITE BLOOD COUNT 3.2 X10'3 (4.5-11.0)
[2019-07-20 05:57] LABS: HEMATOCRIT 21.1 % (42.0-52.0)
[2019-07-20 06:03] LABS: ALANINE AMINOTRANSFERASE 18 U/L (12-78); ALBUMIN 2.5 G/DL (3.4-5.0); ALBUMIN/GLOBULIN RATIO 0.7 (1.1-1.5); ALKALINE PHOSPHATASE 224 IU/L (46-116); ANION GAP 12 (8-16); ASPARTATE AMINO TRANSFERASE 26 U/L (10-37); BLOOD UREA NITROGEN 46 MG/DL (7-18); BUN/CREATININE RATIO 6.4 (5.4-32.0); CALCIUM 7.6 MG/DL (8.5-10.1); CHLORIDE 98 MMOL/L (99-107); GLUCOSE 158 MG/DL (70-104); MAGNESIUM 1.8 MG/DL (1.5-2.4); PHOSPHORUS 5.6 MG/DL (2.3-4.5); POTASSIUM 4.7 MMOL/L (3.5-5.1); SODIUM 137 MMOL/L (135-145); TOTAL CARBON DIOXIDE 26.7 MMOL/L (24-32); TOTAL PROTEIN 5.9 G/DL (6.4-8.2); eGFR 8 ML/MIN
--- NOTE | 2019-07-20 06:30 | NUR ---
Patient in room PCU 3010. I have received report from Rivas RN and had the opportunity to ask questions and assume patient care.
[2019-07-20 06:35] LABS: ANISOCYTOSIS 1+; LARGE PLATELETS FEW; PLATELET ESTIMATE DECREASED; TOTAL CELLS COUNTED 100
--- NOTE | 2019-07-20 06:39 | NUR ---
Problems reprioritized. Patient report given, questions answered & plan of care reviewed with Yazmin MARCIAL.
[2019-07-20 07:00] VITALS: BP 154/64
[2019-07-20] MEDS: calcium acetate 667mg (PhosLO) capsule PO SCH ×3 (07:00→16:38)
[2019-07-20] MEDS: cefepime 1GM in D5W 50mL 50 ML IV SCH (07:40)
[2019-07-20] MEDS: docusate sod 100mg capsule PO SCH ×3 (07:41→21:03)
[2019-07-20] MEDS: folic acid/vitamin B complex w/vitamin C 0.8mg tablet PO SCH (07:41)
[2019-07-20] MEDS: folic acid 1mg tablet PO SCH (07:42)
[2019-07-20] MEDS: furosemide 40mg tablet PO SCH ×3 (07:42→21:02)
[2019-07-20] MEDS: ALPRAZolam 0.25mg tablet PO PRN ×2 (07:42→17:38)
[2019-07-20] MEDS ORDERED: epoetin 20,000 units/ml inj IV ONE (08:00)
[2019-07-20] MEDS ORDERED: normal saline 1000ml 250 ML IV PRN (08:00)
[2019-07-20] MEDS ORDERED: LIDOcaine 1% (10mg/ml) 2ml vial SQ ONE (08:00)
[2019-07-20] MEDS: metoprolol tartrate 50mg tablet PO SCH ×2 (08:00→21:04)
[2019-07-20] MEDS ORDERED: heparin 1,000 units/ml 10ml inj IV ONE (08:00)
[2019-07-20] MEDS: heparin, porcine 5000 units/ml vial SQ SCH ×2 (08:00→20:00)
[2019-07-20] MEDS: losartan 50mg tablet PO SCH (08:00)
[2019-07-20] MEDS: insulin Lispro (HumaLOG) vial - multi-dose SQ SCH ×2 (09:30→19:26)
--- NOTE | 2019-07-20 10:26 | NUR ---
patient refused svn tx due to dyalisis Addendum: 07/20/19 at 1027 by Gladys Alcaraz RT Amended: Links added.
[2019-07-20 11:00] VITALS: BP 147/73
[2019-07-20 11:10] LABS: EBV AB VCA, IGG >600.0 U/mL (0.0-17.9); EBV AB VCA, IGM <36.0 U/mL (0.0-35.9)
--- NOTE | 2019-07-20 13:00 | NUR ---
Patient refused both scheduled lasix and noon insulin dosing. Will continue to closely monitor.
[2019-07-20 15:00] VITALS: BP 164/67
--- NOTE | 2019-07-20 15:11 | NUR ---
Initial: Pt admit with anemia and possible PNA with hx ESRD on HD. Pt on renal CHO controlled diet with fluctuating PO intake, documented with mostly 50-100% however down to 25-50% x 2 most recent meals. Pt seen at bedside reports he normally snacks throughout the day however his appetite is improving. Pt denies food allergies, difficulty chewing/swallowing, or constipation/diarrhea. LBM 07/19. Pt provided with alternative menu and RD contact information. RD encouraged PO intake of protein to meet the demands of HD. Pt denies food preferences or additional protein at this time. Will continue to follow. Recommendations: 1) Continue renal CHO controlled diet 2) Monitor need for additional protein; Encourage PO intake 3) Continue Phosphate binder 4) Routine bowel care 5) Wt per rx Addendum: 07/20/19 at [address] Amended: Links added.
[2019-07-20] MEDS ORDERED: benzocaine/menthol oral lozeng 1 EACH BOX MM PRN (16:20)
--- NOTE | 2019-07-20 18:18 | NUR ---
Problems reprioritized. Patient report given, questions answered & plan of care reviewed with Rivas RN.
--- NOTE | 2019-07-20 18:19 | NUR ---
Orientation documentation: I have reviewed and agree with interventions, assessments performed and documented by Cecilia MCKEON. [facility] Medication Administration: For this medication-pass time frame, medication were reviewed, dispensed, administered and documented per hospital policy by Cecilia MCKEON.
--- NOTE | 2019-07-20 18:25 | NUR ---
Patient in room PCU 3009. I have received report from Yazmin Henry RN and had the opportunity to ask questions and assume patient care.
[2019-07-20 19:00] VITALS: BP 166/72
[2019-07-20] MEDS: insulin glargine (Lantus) pen - multi-dose SQ SCH (21:00)
[2019-07-20] MEDS: temazepam 15mg capsule PO PRN (21:03)
[2019-07-20] MEDS: amLODIPine 5mg tablet PO SCH (21:03)
--- NOTE | 2019-07-20 21:18 | NUR ---
PT MEDICATION pt decides his own medication regimen, RN [facility] aware of this pt's preferences. tonight, half metoprolol (50mg) taken, and refused heparin and lantus.
[2019-07-20 23:19] VITALS: BP 166/72
[2019-07-21] MEDS: ondansetron/PF 4mg/2ml inj IV PRN ×2 (01:35→11:56)
[2019-07-21] MEDS: ALPRAZolam 0.25mg tablet PO PRN ×2 (01:35→11:56)
[2019-07-21 03:00] VITALS: BP 143/64
[2019-07-21] MEDS: VANCOMYCIN LEVEL IV SCH (03:00)
[2019-07-21] MEDS: ipratropium/albuterol 3ml nebule IH SCH ×4 (03:23→15:06)
[2019-07-21 05:02] LABS: BASOPHILS % (AUTO) 0.8 % (0-1); EOSINOPHILS # (AUTO) 0.3 X10'3 (0-0.9); EOSINOPHILS % (AUTO) 8.8 % (0-6); HEMOGLOBIN 7.4 g/dl (14.0-17.9); LYMPHOCYTES # (AUTO) 0.5 X10'3 (1.1-4.8); LYMPHOCYTES % (AUTO) 13.9 % (21-51); MEAN CORPUSCULAR HEMOGLOBIN 33.8 PG (27.0-31.0); MEAN CORPUSCULAR HGB CONC 35.5 g/dL (33.0-36.5); MEAN CORPUSCULAR VOLUME 95.5 FL (78-98); MEAN PLATELET VOLUME 6.4 FL (7.4-10.4); MONOCYTES # (AUTO) 0.6 X10'3 (0-0.9); NEUTROPHILS # (AUTO) 2.3 X10'3 (1.8-7.7); NEUTROPHILS % (AUTO) 60.5 % (42-75); PLATELET COUNT 98 X10'3 (140-440); RED BLOOD COUNT 2.18 X10'6 (4.70-6.10); RED CELL DISTRIBUTION WIDTH 16.1 % (11.5-14.5); WHITE BLOOD COUNT 3.8 X10'3 (4.5-11.0)
[2019-07-21 05:19] LABS: HEMATOCRIT 20.8 % (42.0-52.0)
[2019-07-21 05:29] LABS: ALANINE AMINOTRANSFERASE 15 U/L (12-78); ALBUMIN 2.4 G/DL (3.4-5.0); ALBUMIN/GLOBULIN RATIO 0.7 (1.1-1.5); ALKALINE PHOSPHATASE 207 IU/L (46-116); ANION GAP 7 (8-16); ASPARTATE AMINO TRANSFERASE 27 U/L (10-37); BILIRUBIN,TOTAL 1.1 MG/DL (0.1-1.0); BLOOD UREA NITROGEN 23 MG/DL (7-18); BUN/CREATININE RATIO 4.7 (5.4-32.0); CALCIUM 7.7 MG/DL (8.5-10.1); CHLORIDE 100 MMOL/L (99-107); CREATININE 4.92 MG/DL (0.60-1.10); GLUCOSE 171 MG/DL (70-104); MAGNESIUM 1.9 MG/DL (1.5-2.4); PHOSPHORUS 4.3 MG/DL (2.3-4.5); POTASSIUM 4.3 MMOL/L (3.5-5.1); SODIUM 137 MMOL/L (135-145); TOTAL CARBON DIOXIDE 30.2 MMOL/L (24-32); TOTAL PROTEIN 5.8 G/DL (6.4-8.2); eGFR 12 ML/MIN
[2019-07-21 05:30] LABS: VANCOMYCIN,RANDOM 9.4 UG/ML
[2019-07-21 06:00] VITALS: BP 154/67
--- NOTE | 2019-07-21 06:29 | NUR ---
Problems reprioritized. Patient report given, questions answered & plan of care reviewed with Nancy Baez RN.
--- NOTE | 2019-07-21 06:37 | NUR ---
Patient in room PCU 3009. I have received report from LINDA Hathaway and had the opportunity to ask questions and assume patient care.
[2019-07-21] MEDS: heparin, porcine 5000 units/ml vial SQ SCH (08:00)
[2019-07-21] MEDS: docusate sod 100mg capsule PO SCH ×2 (08:00→09:16)
[2019-07-21] MEDS: metoprolol tartrate 50mg tablet PO SCH (08:00)
[2019-07-21] MEDS ORDERED: vancomycin/NS 1 GM ADD-VANTAGE 250 ML IV ONE (08:05)
[2019-07-21] MEDS: folic acid 1mg tablet PO SCH (09:15)
[2019-07-21] MEDS: calcium acetate 667mg (PhosLO) capsule PO SCH ×2 (09:15→13:25)
[2019-07-21] MEDS: losartan 50mg tablet PO SCH (09:16)
[2019-07-21] MEDS: furosemide 40mg tablet PO SCH ×2 (09:16→13:24)
[2019-07-21] MEDS: folic acid/vitamin B complex w/vitamin C 0.8mg tablet PO SCH (09:16)
[2019-07-21] MEDS: cefepime 1GM in D5W 50mL 50 ML IV SCH (09:17)
[2019-07-21] MEDS: insulin Lispro (HumaLOG) vial - multi-dose SQ SCH ×2 (09:38→13:33)
[2019-07-21 11:00] VITALS: BP 148/66
--- NOTE | 2019-07-21 13:27 | NUR ---
per Diabetic protocol patient karina recieve 12 units. He wants to only take 8 units
[2019-07-21] MEDS: HYDROcodone/acetaminophen 10/325mg tab PO PRN (13:40)
[2019-07-21 15:00] VITALS: BP 158/72
--- NOTE | 2019-07-21 15:43 | NUR ---
[place] was given to pt @ 0910 per pt request for 8/10 generalized pain and throat pain. This med did not get scanned on Oct. Pharmacists and CRN were notified Follow up pain reassessment was effective 2/10 pain after one hour.
[2019-07-21] MEDS ORDERED: LEVO500T2 PO (16:21)
--- NOTE | 2019-07-21 17:31 | NUR ---
Pt discharged to home @ 1715 with all belongings. He was taken to front picked up by daughter in private car. Discharge papers were signed. Pt to make f/u with PCPMarc Mcleod phoned to [facility].
== END 2019-07-21 17:15 | disposition home or self-care (01) | DRG 193 ==
LOC: ER 14:41 → ED HOLD 16:16 → PCU 3S 19:10
PROVIDERS: ADMIT Internal Medicine Critical Care Medicine; ATTEND Internal Medicine Critical Care Medicine
PROC: 5A1D70Z Performance of Urinary Filtration, Intermittent, Less than 6 Hours Per Day (ICD-10-PCS; 2019-07-18)
PROC: 5A1D70Z Performance of Urinary Filtration, Intermittent, Less than 6 Hours Per Day (ICD-10-PCS; principal; 2019-07-20)
DX: J18.9 Pneumonia, unspecified organism (principal); N18.6 End stage renal disease; Z94.4 Liver transplant status; I48.20 Chronic atrial fibrillation, unspecified; I13.2 Hypertensive heart and chronic kidney disease with heart failure and with stage 5 chronic kidney disease, or end stage renal disease; D61.818 Other pancytopenia; I50.9 Heart failure, unspecified; B19.20 Unspecified viral hepatitis C without hepatic coma; E11.22 Type 2 diabetes mellitus with diabetic chronic kidney disease; K74.60 Unspecified cirrhosis of liver; Z99.2 Dependence on renal dialysis; Z79.899 Other long term (current) drug therapy; Z79.4 Long term (current) use of insulin
CPT/HCPCS: 36415; 71045; 80053; 80202; 82728; 82948; 83540; 83550; 83605; 83735; 84100; 84145; 85025; 85610; 85730; 86663; 86664; 86665; 86885; 86900; 86901; 86920; 87040; 87081; 90935; 94640; 94667; 94668; 94760; 96374; 97116; 97161; 97530; 99285; G0257; G0378; J0692; J1644; J1815; J1956; J2405; J3370; Q4081

== ENCOUNTER 2019-08-05 06:51 | Day surgery (SDC) | payer MEDICARE, MEDICAID ==
[~2019-08-05] VITALS: Ht 185.4 cm; Wt 82.4 kg
[~2019-08-05 06:51] MED LIST changes: +ALPR1TAB7 PO; +CALC667T6 PO; +FURO80TA3 PO; +HYDR-3972 PO; -INSU100C10 SQ; -INSU100I31 SQ; +METO5TAB7 PO; -ZAR2.5T PO; +[UNRECOGNIZED DRUG - CODE] IV
[2019-08-05 07:38] VITALS: BP 143/67
[2019-08-05 07:39] VITALS: BP 143/67
[2019-08-05] MEDS ORDERED: INSU100I8 SQ (07:52)
[2019-08-05] MEDS ORDERED: LANTUS SQ (07:53)
[2019-08-05 08:00] VITALS: BP 132/67
[2019-08-05 09:00] VITALS: BP 147/72
--- NOTE | 2019-08-05 11:41 | NUR ---
Ultrasound performed and pt found to not have enough fluid to do thoracentesis. Pt will ge CXr as requested by outside provider.
== END 2019-08-05 10:20 | disposition home or self-care (01) ==
LOC: SSTAY O 06:51
PROVIDERS: ATTEND Radiology Diagnostic Radiology
DX: J90 Pleural effusion, not elsewhere classified (principal); E11.22 Type 2 diabetes mellitus with diabetic chronic kidney disease; I12.0 Hypertensive chronic kidney disease with stage 5 chronic kidney disease or end stage renal disease; N18.6 End stage renal disease; I48.20 Chronic atrial fibrillation, unspecified; K74.60 Unspecified cirrhosis of liver; Z86.19 Personal history of other infectious and parasitic diseases; Z99.2 Dependence on renal dialysis; Z79.4 Long term (current) use of insulin; Z79.899 Other long term (current) drug therapy
CPT/HCPCS: 71046; 76604; 76705

== ENCOUNTER 2020-09-03 04:41 | Emergency (ER) | payer MEDICARE, MEDICAID ==
[~2020-09-03] VITALS: Ht 185.4 cm; Wt 81.0 kg
[~2020-09-03 04:41] MED LIST changes: -ALPR1TAB7 PO; -CALC667T6 PO; +FOLI1TAB34 PO; +LACT10SO PO; +LANTUS SQ; -METO-477 PO; +METO100T14 PO; +NOVLG SQ; +PANT-47 PO; +PHO667C PO; +TEMA30CA PO; -TEMA30CA5 PO; -[UNRECOGNIZED DRUG - CODE] IV
[2020-09-03] MEDS ORDERED: iohexol 300mg/ml 100ml inj. ONE (05:19)
--- NOTE | 2020-09-03 05:43 | NUR ---
Call pt's daughter Michelle at [phone]
[2020-09-03] MEDS ORDERED: morphine 10mg/ml inj. IV ONE ×2 (05:45→06:35)
[2020-09-03] MEDS ORDERED: ondansetron/PF 4mg/2ml inj IV ONE (05:45)
[2020-09-03 05:58] LABS: BASOPHILS # (AUTO) 0.1 X10'3 (0-0.2); EOSINOPHILS # (AUTO) 0.5 X10'3 (0-0.9); EOSINOPHILS % (AUTO) 4.1 % (0-6); HEMATOCRIT 37.4 % (42.0-52.0); HEMOGLOBIN 12.9 g/dl (14.0-17.9); LYMPHOCYTES # (AUTO) 0.9 X10'3 (1.1-4.8); LYMPHOCYTES % (AUTO) 8.5 % (21-51); MEAN CORPUSCULAR HEMOGLOBIN 34.4 PG (27.0-31.0); MEAN CORPUSCULAR HGB CONC 34.6 g/dL (33.0-36.5); MEAN CORPUSCULAR VOLUME 99.3 FL (78-98); MEAN PLATELET VOLUME 7.6 FL (7.4-10.4); MONOCYTES # (AUTO) 0.9 X10'3 (0-0.9); MONOCYTES % (AUTO) 7.9 % (2-12); NEUTROPHILS # (AUTO) 8.7 X10'3 (1.8-7.7); NEUTROPHILS % (AUTO) 78.5 % (42-75); PLATELET COUNT 136 X10'3 (140-440); RED BLOOD COUNT 3.76 X10'6 (4.70-6.10); RED CELL DISTRIBUTION WIDTH 14.9 % (11.5-14.5); WHITE BLOOD COUNT 11.1 X10'3 (4.5-11.0)
[2020-09-03 06:07] LABS: ALBUMIN 3.3 G/DL (3.4-5.0); ANION GAP 10 (8-16); BLOOD UREA NITROGEN 62 MG/DL (7-18); BUN/CREATININE RATIO 7.8 (5.4-32.0); CALCIUM 9.2 MG/DL (8.5-10.1); CHLORIDE 97 MMOL/L (99-107); CREATININE 7.99 MG/DL (0.60-1.10); GLUCOSE 339 MG/DL (70-104); SODIUM 132 MMOL/L (135-145); TOTAL CARBON DIOXIDE 25.4 MMOL/L (24-32); eGFR 7 ML/MIN
[2020-09-03 06:08] LABS: POTASSIUM 5.1 MMOL/L (3.5-5.1)
[2020-09-03 06:19] VITALS: BP 158/87
[2020-09-03] MEDS ORDERED: CEPH-571 PO (06:32)
[2020-09-03] MEDS ORDERED: cephalexin 250mg capsule PO ONE (06:35)
[2020-09-03] MEDS ORDERED: CEPH250T PO (12:41)
== END 2020-09-03 06:48 | disposition home or self-care (01) ==
LOC: ER 04:42
DX: K11.20 Sialoadenitis, unspecified (principal); E11.22 Type 2 diabetes mellitus with diabetic chronic kidney disease; N18.6 End stage renal disease; Z99.2 Dependence on renal dialysis; I48.91 Unspecified atrial fibrillation; Z86.19 Personal history of other infectious and parasitic diseases; Z98.890 Other specified postprocedural states; Z79.4 Long term (current) use of insulin; Z79.899 Other long term (current) drug therapy
CPT/HCPCS: 36415; 70491; 80048; 85025; 96374; 96375; 96376; 99285; J2270; J2405; Q9967

== ENCOUNTER 2020-12-15 10:22 | Emergency (ER) | payer MEDICARE, MEDICAID ==
[~2020-12-15] VITALS: Ht 185.4 cm; Wt 82.0 kg
[~2020-12-15 10:22] MED LIST changes: +CEPH-571 PO; -LACT10SO PO; +LACT10SO3 PO
[2020-12-15 10:59] LABS: BASOPHILS # (AUTO) 0.1 X10'3 (0-0.2); EOSINOPHILS # (AUTO) 0.7 X10'3 (0-0.9); EOSINOPHILS % (AUTO) 6.4 % (0-6); HEMATOCRIT 32.3 % (42.0-52.0); HEMOGLOBIN 11.6 g/dl (14.0-17.9); LYMPHOCYTES # (AUTO) 0.9 X10'3 (1.1-4.8); LYMPHOCYTES % (AUTO) 8.9 % (21-51); MEAN CORPUSCULAR HEMOGLOBIN 34.7 PG (27.0-31.0); MEAN CORPUSCULAR VOLUME 96.4 FL (78-98); MEAN PLATELET VOLUME 6.5 FL (7.4-10.4); MONOCYTES % (AUTO) 9.9 % (2-12); NEUTROPHILS # (AUTO) 7.6 X10'3 (1.8-7.7); NEUTROPHILS % (AUTO) 73.8 % (42-75); PLATELET COUNT 276 X10'3 (140-440); RED BLOOD COUNT 3.35 X10'6 (4.70-6.10); RED CELL DISTRIBUTION WIDTH 15.1 % (11.5-14.5); WHITE BLOOD COUNT 10.4 X10'3 (4.5-11.0)
[2020-12-15 11:16] LABS: ALANINE AMINOTRANSFERASE 23 U/L (12-78); ALBUMIN 2.9 G/DL (3.4-5.0); ALBUMIN/GLOBULIN RATIO 0.6 (1.1-1.5); ALKALINE PHOSPHATASE 241 IU/L (46-116); ANION GAP 12 (8-16); ASPARTATE AMINO TRANSFERASE 26 U/L (10-37); BILIRUBIN,TOTAL 1.5 MG/DL (0.1-1.0); BLOOD UREA NITROGEN 60 MG/DL (7-18); BUN/CREATININE RATIO 8.2 (5.4-32.0); CHLORIDE 92 MMOL/L (99-107); CREATININE 7.36 MG/DL (0.60-1.10); GLUCOSE 281 MG/DL (70-104); POTASSIUM 4.3 MMOL/L (3.5-5.1); SODIUM 132 MMOL/L (135-145); TOTAL CARBON DIOXIDE 28.1 MMOL/L (24-32); TOTAL PROTEIN 7.6 G/DL (6.4-8.2); eGFR 7 ML/MIN
[2020-12-15 13:18] VITALS: BP 138/93
[2020-12-16] MEDS ORDERED: LOSA50TA64 PO (14:53)
[2020-12-16] MEDS ORDERED: ALPR1TAB7 PO (14:53)
[2020-12-16] MEDS ORDERED: INSU100I31 SQ (14:53)
[2020-12-16] MEDS ORDERED: AZIT250T29 PO (14:53)
[2020-12-16] MEDS ORDERED: LOP12.5T PO (15:05)
== END 2020-12-15 13:48 | disposition home or self-care (01) ==
LOC: ER 10:22
DX: I48.91 Unspecified atrial fibrillation (principal); E11.22 Type 2 diabetes mellitus with diabetic chronic kidney disease; N18.6 End stage renal disease; Z99.2 Dependence on renal dialysis; Z79.4 Long term (current) use of insulin; Z79.899 Other long term (current) drug therapy
CPT/HCPCS: 36415; 71045; 80053; 83880; 84484; 85025; 93005; 99285

== ENCOUNTER 2020-12-16 08:39 | Inpatient (IN) | payer MEDICARE, MEDICAID ==
[~2020-12-16] VITALS: Ht 185.4 cm; Wt 81.0 kg
[2020-12-16 11:27] LABS: BASOPHILS # (AUTO) 0.1 X10'3 (0-0.2); BASOPHILS % (AUTO) 1.2 % (0-1); EOSINOPHILS # (AUTO) 0.5 X10'3 (0-0.9); EOSINOPHILS % (AUTO) 6.3 % (0-6); HEMATOCRIT 29.6 % (42.0-52.0); HEMOGLOBIN 10.8 g/dl (14.0-17.9); LYMPHOCYTES # (AUTO) 0.8 X10'3 (1.1-4.8); LYMPHOCYTES % (AUTO) 9.8 % (21-51); MEAN CORPUSCULAR HEMOGLOBIN 35.1 PG (27.0-31.0); MEAN CORPUSCULAR HGB CONC 36.6 g/dL (33.0-36.5); MEAN PLATELET VOLUME 6.7 FL (7.4-10.4); MONOCYTES # (AUTO) 0.7 X10'3 (0-0.9); MONOCYTES % (AUTO) 8.9 % (2-12); NEUTROPHILS # (AUTO) 5.7 X10'3 (1.8-7.7); NEUTROPHILS % (AUTO) 73.8 % (42-75); PLATELET COUNT 239 X10'3 (140-440); RED BLOOD COUNT 3.08 X10'6 (4.70-6.10); RED CELL DISTRIBUTION WIDTH 14.8 % (11.5-14.5); WHITE BLOOD COUNT 7.7 X10'3 (4.5-11.0)
[2020-12-16 11:47] LABS: ALANINE AMINOTRANSFERASE 22 U/L (12-78); ALBUMIN 2.7 G/DL (3.4-5.0); ALBUMIN/GLOBULIN RATIO 0.6 (1.1-1.5); ALKALINE PHOSPHATASE 213 IU/L (46-116); ANION GAP 7 (8-16); ASPARTATE AMINO TRANSFERASE 33 U/L (10-37); BILIRUBIN,TOTAL 1.7 MG/DL (0.1-1.0); BLOOD UREA NITROGEN 36 MG/DL (7-18); BUN/CREATININE RATIO 7.7 (5.4-32.0); CALCIUM 8.3 MG/DL (8.5-10.1); CHLORIDE 94 MMOL/L (99-107); CREATININE 4.66 MG/DL (0.60-1.10); GLUCOSE 298 MG/DL (70-104); POTASSIUM 3.6 MMOL/L (3.5-5.1); SODIUM 133 MMOL/L (135-145); TOTAL PROTEIN 6.9 G/DL (6.4-8.2); eGFR 12 ML/MIN
[2020-12-16 12:02] LABS: PLATELET ESTIMATE NORMAL; SPHEROCYTES 1+
--- NOTE | 2020-12-16 12:47 | NUR ---
SPOKE TO DAUGHTER ON PHONE MELISSA BOYLE [phone] CELL
--- NOTE | 2020-12-16 13:03 | NUR ---
DISCUSSED PLAN OF CARE WITH DR CARVAJAL; CALLED AND INFORMED DAUGHTER
--- NOTE | 2020-12-16 13:04 | NUR ---
HOSPITALIST CAMI TO ADMIT PATIENT WITH DR ANDERSON CONSULTING
--- NOTE | 2020-12-16 14:23 | NUR ---
LOZANO LOCKED IN SAFE [id number]
[2020-12-16] MEDS ORDERED: potassium Cl 20 mEq SR tablet PO PRN ×2 (14:35)
[2020-12-16] MEDS ORDERED: normal saline 1000ml 1,000 ML IV SCH (14:35)
[2020-12-16] MEDS ORDERED: magnesium 2GM in 50ml NS 50 ML IV PRN (14:35)
[2020-12-16] MEDS ORDERED: magnesium Cl slow-release 64mg tablet PO PRN (14:35)
[2020-12-16] MEDS ORDERED: MESSAGE TO PHARMACY PO ONE (14:35)
[2020-12-16] MEDS ORDERED: potassium Cl 40MEQ/1/2NS 520ml 520 ML IV PRN ×2 (14:35)
[2020-12-16] MEDS ORDERED: ondansetron/PF 4mg/2ml inj IV PRN (14:35)
[2020-12-16] MEDS ORDERED: mag hydrox/Alum hydrox/simeth 30ml oral suspension PO PRN (14:35)
[2020-12-16] MEDS ORDERED: glucagon, human recombinant 1mg kit SUBCUT PRN (14:35)
[2020-12-16] MEDS ORDERED: acetaminophen 325mg tablet PO PRN ×2 (14:35)
[2020-12-16] MEDS ORDERED: HYDROcodone/acetaminophen 10/325mg tab PO PRN ×2 (14:35→20:10)
[2020-12-16] MEDS ORDERED: magnesium 4gm in 100ml NS 100 ML IV PRN (14:35)
[2020-12-16] MEDS ORDERED: magnesium hydroxide 30ml (MOM) UD suspension PO PRN (14:35)
[2020-12-16] MEDS ORDERED: dextrose ORAL solution 15 GM/59 ML bottle PO PRN ×2 (14:35)
[2020-12-16] MEDS ORDERED: HYDROcodone/acetaminophen 5mg/325mg tablet PO PRN (14:35)
[2020-12-16] MEDS ORDERED: bisacodyl 10mg suppository rectal RC PRN (14:35)
[2020-12-16] MEDS ORDERED: dextrose 50%-water 50ml dispensing syringe IV PRN ×2 (14:35)
[2020-12-16] MEDS ORDERED: acetaminophen 650mg rectal suppository RC PRN (14:35)
[2020-12-16] MEDS ORDERED: morphine 2 MG/ML inj. syringe IV PRN ×2 (14:35)
[2020-12-16] MEDS ORDERED: diphenhydrAMINE 25mg capsule PO PRN (14:35)
[2020-12-16] MEDS ORDERED: AZIT250T29 PO (14:53)
[2020-12-16] MEDS ORDERED: ALPR1TAB7 PO (14:53)
[2020-12-16] MEDS ORDERED: INSU100I31 SQ (14:53)
[2020-12-16] MEDS ORDERED: LOSA50TA64 PO (14:53)
--- NOTE | 2020-12-16 15:00 | NUR ---
BACK FROM CT SCAN
--- NOTE | 2020-12-16 15:01 | NUR ---
UNABLE TO OBTAIN URINE BECAUSE THE PATIENT DOES NOT MAKE URINE PATIENT DOES HD 4 TIMES A WEEK LEFT FOREARM FISTULA +BRUIT, +THRILL
[2020-12-16] MEDS ORDERED: LOP12.5T PO (15:05)
[2020-12-16 15:07] LABS: HEMOGLOBIN A1C 7.6 % (4.5-6.2)
--- NOTE | 2020-12-16 15:52 | NUR ---
[facility] HOSPITALIST CAMI. ORDER FOR IV FLUIDS. PATIENT IS ANURIC AND ON HD 4 TIMES A WEEK AND PER PATIENT HE HAD 4 KG TAKEN OFF DURING HD BY ALLAN ORDER TO DC IV FLUIDS
[2020-12-16] MEDS: K and/or MAG REPLACEMENT MC SCH (15:58)
--- NOTE | 2020-12-16 17:13 | NUR ---
PT'S DAUGHTER CALLED FOR UPDATE, NO PRIOR NOTE TO BEING ABLE TO PROVIDE HER WITH PT'S STATUS WITH PT'S PERMISSION. ADVISED TO CALL BACK WHEN HIS PRIMARY RN HAS RETURNED FROM LUNCH
--- NOTE | 2020-12-16 17:40 | NUR ---
daughter ellis killian has permission from the patient to be updated via phone
--- NOTE | 2020-12-16 19:21 | NUR ---
Patient in room ED 9. I have received report from SUSIE MCKEON and had the opportunity to ask questions and assume patient care.
--- NOTE | 2020-12-16 19:28 | NUR ---
phone report to dannielle da silva on acce unit. patient to go to room 316a on monitor on er thang with rn
[2020-12-16 19:38] VITALS: BP 159/81
--- NOTE | 2020-12-16 19:43 | NUR ---
PATIENT ATE 32 CARBS OF HIS CARB CONTROLLED DINNER AND DRANK 240 ML, LINDA MORRIS TO COVER BLOOD GLUCOSE ON ARRIVAL ACCUCHECK [phone]
[2020-12-16 20:00] VITALS: BP_SYST 119; BP_SYST 134; BP_SYST 139; BP_DIAS 61; BP_DIAS 62; BP_DIAS 68
[2020-12-16] MEDS: insulin Lispro (HumaLOG) vial - multi-dose SQ SCH ×2 (20:06→21:09)
[2020-12-16] MEDS: insulin glargine (Lantus) pen - multi-dose SQ SCH (21:03)
[2020-12-16 22:00] VITALS: BP 126/58
[2020-12-17] VITALS (7 sets, daily range): BP systolic 93–139; BP diastolic 44–125
--- NOTE | 2020-12-17 06:08 | NUR ---
Problems reprioritized. Patient report given, questions answered & plan of care reviewed with JOHN MCKEON.
[2020-12-17 06:45] LABS: BASOPHILS # (AUTO) 0.1 X10'3 (0-0.2); BASOPHILS % (AUTO) 0.9 % (0-1); EOSINOPHILS # (AUTO) 0.5 X10'3 (0-0.9); EOSINOPHILS % (AUTO) 5.8 % (0-6); HEMATOCRIT 29.4 % (42.0-52.0); HEMOGLOBIN 10.7 g/dl (14.0-17.9); LYMPHOCYTES # (AUTO) 0.9 X10'3 (1.1-4.8); LYMPHOCYTES % (AUTO) 10.9 % (21-51); MEAN CORPUSCULAR HEMOGLOBIN 35.1 PG (27.0-31.0); MEAN CORPUSCULAR HGB CONC 36.3 g/dL (33.0-36.5); MEAN CORPUSCULAR VOLUME 96.5 FL (78-98); MEAN PLATELET VOLUME 6.8 FL (7.4-10.4); MONOCYTES # (AUTO) 0.9 X10'3 (0-0.9); MONOCYTES % (AUTO) 10.7 % (2-12); NEUTROPHILS % (AUTO) 71.7 % (42-75); PLATELET COUNT 258 X10'3 (140-440); RED BLOOD COUNT 3.05 X10'6 (4.70-6.10); RED CELL DISTRIBUTION WIDTH 15.3 % (11.5-14.5); WHITE BLOOD COUNT 8.4 X10'3 (4.5-11.0)
[2020-12-17 07:18] LABS: ALANINE AMINOTRANSFERASE 22 U/L (12-78); ALBUMIN 2.6 G/DL (3.4-5.0); ALBUMIN/GLOBULIN RATIO 0.6 (1.1-1.5); ALKALINE PHOSPHATASE 209 IU/L (46-116); ANION GAP 12 (8-16); ASPARTATE AMINO TRANSFERASE 26 U/L (10-37); BILIRUBIN,TOTAL 1.5 MG/DL (0.1-1.0); BLOOD UREA NITROGEN 58 MG/DL (7-18); BUN/CREATININE RATIO 8.2 (5.4-32.0); CALCIUM 8.7 MG/DL (8.5-10.1); CHLORIDE 94 MMOL/L (99-107); CHOL/HDL RATIO 3.8 (0.00-4.99); CHOLESTEROL 109 MG/DL (0-200); CREATININE 7.05 MG/DL (0.60-1.10); GLUCOSE 314 MG/DL (70-104); HDL CHOLESTEROL 29 MG/DL (35-60); LDL CHOLESTEROL 60 MG/DL (50-100); MAGNESIUM 2.2 MG/DL (1.5-2.4); PHOSPHORUS 4.8 MG/DL (2.3-4.5); POTASSIUM 3.9 MMOL/L (3.5-5.1); SODIUM 134 MMOL/L (135-145); TOTAL CARBON DIOXIDE 28.5 MMOL/L (24-32); TOTAL PROTEIN 6.9 G/DL (6.4-8.2); TRIGLYCERIDES 126 MG/DL (20-135); eGFR 8 ML/MIN
[2020-12-17] MEDS: K and/or MAG REPLACEMENT MC SCH ×2 (08:00→20:00)
[2020-12-17] MEDS: metoprolol tartrate 50mg tablet PO SCH ×2 (08:30→11:11)
[2020-12-17] MEDS: pantoprazole 40mg Tablet.DR PO SCH ×2 (08:30→17:45)
[2020-12-17] MEDS: lactulose 20gm/30ml cup PO SCH (08:30)
[2020-12-17] MEDS: docusate sod 100mg capsule PO SCH (08:30)
[2020-12-17] MEDS: folic acid 1mg tablet PO SCH (08:30)
[2020-12-17] MEDS: folic acid/vitamin B complex w/vitamin C 0.8mg tablet PO SCH (08:31)
[2020-12-17] MEDS: insulin Lispro (HumaLOG) vial - multi-dose SQ SCH ×3 (08:49→19:29)
[2020-12-17 10:30] LABS: PLATELET ESTIMATE DECREASED
[2020-12-17 10:31] LABS: HYPOCHROMASIA 1+; SPHEROCYTES FEW
[2020-12-17] MEDS: ALPRAZolam 0.5mg tablet PO PRN ×2 (11:13→19:42)
--- NOTE | 2020-12-17 11:46 | NUR ---
DM Consult: A1C 7.6. Pt seen by BELIA for written/verbal DM ed w/ RD contact information and alternative renal diet menu options provided. Pt hx DM and ESRD on HD. Pt reports checks GLU routinely, takes meds per Rx, adjusts insulin dosage based on CHO consumed, and has no questions/concerns at this time. Addendum: 12/17/20 at [address] Amended: Links added.
[2020-12-17] MEDS: calcium acetate 667mg (PhosLO) capsule PO SCH ×3 (12:47→17:45)
--- NOTE | 2020-12-17 18:00 | NUR ---
Patient in room MED 316. I have received report from Sofia MCKEON and had the opportunity to ask questions and assume patient care.
[2020-12-17] MEDS: insulin glargine (Lantus) pen - multi-dose SQ SCH (21:46)
[2020-12-18 02:00] VITALS: BP 121/69
[2020-12-18 06:00] VITALS: BP 137/66
--- NOTE | 2020-12-18 06:01 | NUR ---
Problems reprioritized. Patient report given, questions answered & plan of care reviewed with TESS MCKEON.
--- NOTE | 2020-12-18 06:25 | NUR ---
Patient in room MED 316. I have received report from avinash spicer and had the opportunity to ask questions and assume patient care.
[2020-12-18 06:55] LABS: BASOPHILS # (AUTO) 0.1 X10'3 (0-0.2); BASOPHILS % (AUTO) 1.1 % (0-1); EOSINOPHILS # (AUTO) 0.6 X10'3 (0-0.9); EOSINOPHILS % (AUTO) 8.4 % (0-6); LYMPHOCYTES # (AUTO) 0.8 X10'3 (1.1-4.8); LYMPHOCYTES % (AUTO) 10.8 % (21-51); MEAN CORPUSCULAR HEMOGLOBIN 34.3 PG (27.0-31.0); MEAN CORPUSCULAR HGB CONC 35.7 g/dL (33.0-36.5); MEAN CORPUSCULAR VOLUME 96.3 FL (78-98); MEAN PLATELET VOLUME 6.8 FL (7.4-10.4); MONOCYTES # (AUTO) 0.7 X10'3 (0-0.9); MONOCYTES % (AUTO) 9.8 % (2-12); NEUTROPHILS # (AUTO) 5.1 X10'3 (1.8-7.7); NEUTROPHILS % (AUTO) 69.9 % (42-75); PLATELET COUNT 225 X10'3 (140-440); RED BLOOD COUNT 2.91 X10'6 (4.70-6.10); RED CELL DISTRIBUTION WIDTH 15.3 % (11.5-14.5); WHITE BLOOD COUNT 7.2 X10'3 (4.5-11.0)
[2020-12-18 07:38] LABS: ALANINE AMINOTRANSFERASE 18 U/L (12-78); ALBUMIN 2.3 G/DL (3.4-5.0); ALBUMIN/GLOBULIN RATIO 0.6 (1.1-1.5); ALKALINE PHOSPHATASE 204 IU/L (46-116); ANION GAP 12 (8-16); ASPARTATE AMINO TRANSFERASE 21 U/L (10-37); BILIRUBIN,TOTAL 1.1 MG/DL (0.1-1.0); BLOOD UREA NITROGEN 80 MG/DL (7-18); BUN/CREATININE RATIO 8.7 (5.4-32.0); CALCIUM 8.7 MG/DL (8.5-10.1); CHLORIDE 92 MMOL/L (99-107); CREATININE 9.24 MG/DL (0.60-1.10); GLUCOSE 434 MG/DL (70-104); MAGNESIUM 2.3 MG/DL (1.5-2.4); PHOSPHORUS 5.5 MG/DL (2.3-4.5); POTASSIUM 4.5 MMOL/L (3.5-5.1); SODIUM 130 MMOL/L (135-145); TOTAL CARBON DIOXIDE 26.5 MMOL/L (24-32); TOTAL PROTEIN 6.2 G/DL (6.4-8.2); eGFR 6 ML/MIN
[2020-12-18] MEDS: pantoprazole 40mg Tablet.DR PO SCH (07:49)
[2020-12-18] MEDS: calcium acetate 667mg (PhosLO) capsule PO SCH ×2 (07:54→13:01)
[2020-12-18] MEDS: folic acid 1mg tablet PO SCH (07:54)
[2020-12-18] MEDS: folic acid/vitamin B complex w/vitamin C 0.8mg tablet PO SCH (07:54)
[2020-12-18] MEDS: docusate sod 100mg capsule PO SCH (07:54)
[2020-12-18] MEDS: lactulose 20gm/30ml cup PO SCH (07:55)
[2020-12-18] MEDS ORDERED: normal saline 1000ml 250 ML IV PRN (08:00)
[2020-12-18] MEDS ORDERED: EPOETIN ALFA-EPBX 20,000 UNIT/ML 1 ML MDV IV ONE (08:00)
[2020-12-18] MEDS ORDERED: LIDOcaine 1% (10mg/ml) 2ml vial SQ ONE (08:00)
[2020-12-18] MEDS ORDERED: heparin 1,000 units/ml 10ml inj IV ONE (08:00)
[2020-12-18] MEDS: K and/or MAG REPLACEMENT MC SCH (08:00)
[2020-12-18] MEDS: insulin Lispro (HumaLOG) vial - multi-dose SQ SCH ×2 (08:46→13:31)
[2020-12-18] MEDS ORDERED: insulin Lispro (HumaLOG) vial - multi-dose SQ ONE (10:10)
[2020-12-18] MEDS ORDERED: insulin glargine (Lantus) pen - multi-dose SQ ONE (10:10)
[2020-12-18 11:00] VITALS: BP 137/69
[2020-12-18] MEDS: ALPRAZolam 0.5mg tablet PO PRN (11:26)
[2020-12-18 14:00] VITALS: BP 110/83
[2020-12-18 18:00] VITALS: BP 133/74
--- NOTE | 2020-12-18 18:20 | NUR ---
Patient in room MED 316. I have received report from Brenda, and had the opportunity to ask questions and assume patient care.
--- NOTE | 2020-12-18 18:29 | NUR ---
Problems reprioritized. Patient report given, questions answered & plan of care reviewed with LINDA IBARRA.
--- NOTE | 2020-12-18 19:21 | NUR ---
Patient's IV removed. All the discharge documents handed to the patient and informed him to follow up with Dr. Almanzar's office for follow up. Explained all the medications that he is on. Patient alert, oriented x4. Not at any distress. Patient wheeled downstair by Shanika. Discharge time at 1845.
== END 2020-12-18 18:45 | disposition home or self-care (01) | DRG 308 ==
LOC: ER 08:40 → ED HOLD 14:35 → EDBEDREQ 18:16 → MED 3N 19:50
PROVIDERS: ADMIT Family Medicine; ATTEND Family Medicine
PROC: 5A1D70Z Performance of Urinary Filtration, Intermittent, Less than 6 Hours Per Day (ICD-10-PCS; principal; 2020-12-18)
DX: I48.91 Unspecified atrial fibrillation (principal); N18.6 End stage renal disease; I12.0 Hypertensive chronic kidney disease with stage 5 chronic kidney disease or end stage renal disease; Z94.4 Liver transplant status; E11.22 Type 2 diabetes mellitus with diabetic chronic kidney disease; I49.8 Other specified cardiac arrhythmias; Z20.822 Contact with and (suspected) exposure to COVID-19; J44.9 Chronic obstructive pulmonary disease, unspecified; Z60.2 Problems related to living alone; K21.9 Gastro-esophageal reflux disease without esophagitis; R09.02 Hypoxemia; Z79.899 Other long term (current) drug therapy; Z87.891 Personal history of nicotine dependence; Z99.2 Dependence on renal dialysis; Z99.81 Dependence on supplemental oxygen; Z86.19 Personal history of other infectious and parasitic diseases
CPT/HCPCS: 36415; 71045; 71250; 80053; 80061; 82948; 83036; 83735; 83880; 84100; 84443; 84484; 85008; 85025; 87081; 87635; 93005; 93306; 97116; 97161; 97530; 99285; G0378; J1815; Q4081

== ENCOUNTER 2021-04-28 08:45 | Emergency (ER) | payer MEDICARE, MEDICAID ==
[~2021-04-28] VITALS: Ht 185.4 cm; Wt 80.0 kg
[~2021-04-28 08:45] MED LIST changes: +ALPR1TAB7 PO; -AMLO10TA4 PO; -CEPH-571 PO; -FOLI0.8T7 PO; +INSU100I31 SQ; +LOP12.5T PO; -LOSA100T57 PO; -METO100T14 PO; -TEMA30CA PO
[2021-04-28] MEDS ORDERED: normal saline 1000ML IV soln IVB ONE (09:05)
[2021-04-28] MEDS ORDERED: morphine oral 20mg/ml (conc. morphine) 1ml oral syringe PO PRN (09:15)
[2021-04-28] MEDS ORDERED: ondansetron 4mg rapidly disintigrating tab PO ONE ×2 (09:15→11:10)
[2021-04-28] MEDS ORDERED: morphine 10mg/0.5ml (conc. morphine) oral syringe PO PRN ×2 (09:19→10:45)
[2021-04-28 10:26] LABS: BASOPHILS # (AUTO) 0.1 X10'3 (0-0.2); BASOPHILS % (AUTO) 1.2 % (0-1); EOSINOPHILS # (AUTO) 0.4 X10'3 (0-0.9); EOSINOPHILS % (AUTO) 5.1 % (0-6); HEMATOCRIT 41.4 % (42.0-52.0); HEMOGLOBIN 14.4 g/dl (14.0-17.9); LYMPHOCYTES % (AUTO) 11.1 % (21-51); MEAN CORPUSCULAR HEMOGLOBIN 34.2 PG (27.0-31.0); MEAN CORPUSCULAR HGB CONC 34.7 g/dL (33.0-36.5); MEAN CORPUSCULAR VOLUME 98.5 FL (78-98); MEAN PLATELET VOLUME 7.4 FL (7.4-10.4); MONOCYTES # (AUTO) 0.7 X10'3 (0-0.9); MONOCYTES % (AUTO) 8.3 % (2-12); NEUTROPHILS # (AUTO) 6.6 X10'3 (1.8-7.7); NEUTROPHILS % (AUTO) 74.3 % (42-75); PLATELET COUNT 159 X10'3 (140-440); RED BLOOD COUNT 4.21 X10'6 (4.70-6.10); RED CELL DISTRIBUTION WIDTH 14.9 % (11.5-14.5); WHITE BLOOD COUNT 8.9 X10'3 (4.5-11.0)
[2021-04-28 10:40] LABS: ALANINE AMINOTRANSFERASE 45 U/L (12-78); ALBUMIN 3.3 G/DL (3.4-5.0); ALBUMIN/GLOBULIN RATIO 0.8 (1.1-1.5); ALKALINE PHOSPHATASE 260 IU/L (46-116); ANION GAP 11 (8-16); ASPARTATE AMINO TRANSFERASE 37 U/L (10-37); BILIRUBIN,TOTAL 1.9 MG/DL (0.1-1.0); BLOOD UREA NITROGEN 35 MG/DL (7-18); BUN/CREATININE RATIO 6.7 (5.4-32.0); CALCIUM 8.8 MG/DL (8.5-10.1); CHLORIDE 98 MMOL/L (99-107); CREATININE 5.22 MG/DL (0.60-1.10); GLUCOSE 211 MG/DL (70-104); POTASSIUM 3.7 MMOL/L (3.5-5.1); SODIUM 137 MMOL/L (135-145); TOTAL CARBON DIOXIDE 27.7 MMOL/L (24-32); TOTAL PROTEIN 7.6 G/DL (6.4-8.2); eGFR 11 ML/MIN
[2021-04-28 11:22] VITALS: BP 106/58
== END 2021-04-28 11:26 | disposition home or self-care (01) ==
LOC: ER 08:46
DX: R55 Syncope and collapse (principal); E11.22 Type 2 diabetes mellitus with diabetic chronic kidney disease; M25.511 Pain in right shoulder; M25.512 Pain in left shoulder; I12.0 Hypertensive chronic kidney disease with stage 5 chronic kidney disease or end stage renal disease; N18.6 End stage renal disease; I48.91 Unspecified atrial fibrillation; K74.60 Unspecified cirrhosis of liver; Z90.49 Acquired absence of other specified parts of digestive tract; Z79.4 Long term (current) use of insulin; Z79.899 Other long term (current) drug therapy; Z99.2 Dependence on renal dialysis
CPT/HCPCS: 36415; 71045; 80053; 85025; 85610; 93005; 99285

== ENCOUNTER 2023-03-06 08:15 | Day surgery (SDC) | payer MEDICARE, MEDICAID ==
[~2023-03-06] VITALS: Ht 185.4 cm; Wt 78.0 kg
[~2023-03-06 08:15] MED LIST changes: +ALBU18HF2 INH; +ASPI-1264 PO; -FOLI0.4T14 PO; +FOLI1TAB27 PO; -LANTUS SQ; -PANT-47 PO
[2023-03-06] MEDS ORDERED: normal saline 1000ml 1,000 ML IV PRN (08:35)
[2023-03-06 08:45] VITALS: BP 121/64
[2023-03-06] MEDS ORDERED: fentaNYL/PF 50MCG/1 ML 2ML syringe ONE ×2 (09:09→10:22)
[2023-03-06] MEDS ORDERED: midazolam 1 mg/ML 2ml injection ONE (09:09)
[2023-03-06] MEDS ORDERED: iohexol 300mg/ml 100ml inj. ONE (09:09)
[2023-03-06] MEDS ORDERED: heparin 1,000 UNITS/NS 500ml 500 ML ONE (09:09)
[2023-03-06] MEDS ORDERED: PANT-47 PO (09:11)
[2023-03-06] MEDS ORDERED: SEVE800T8 PO (09:11)
[2023-03-06 09:18] LABS: BASOPHILS # (AUTO) 0.1 X10'3 (0-0.2); BASOPHILS % (AUTO) 1.1 % (0-1); EOSINOPHILS # (AUTO) 0.4 X10'3 (0-0.9); EOSINOPHILS % (AUTO) 5.3 % (0-6); HEMATOCRIT 40.7 % (42.0-52.0); HEMOGLOBIN 13.4 g/dl (14.0-17.9); LYMPHOCYTES # (AUTO) 0.9 X10'3 (1.1-4.8); MEAN CORPUSCULAR HGB CONC 32.8 g/dL (33.0-36.5); MEAN CORPUSCULAR VOLUME 100.4 FL (78-98); MEAN PLATELET VOLUME 7.9 FL (7.4-10.4); MONOCYTES # (AUTO) 0.6 X10'3 (0-0.9); MONOCYTES % (AUTO) 7.4 % (2-12); NEUTROPHILS # (AUTO) 6.3 X10'3 (1.8-7.7); NEUTROPHILS % (AUTO) 75.2 % (42-75); PLATELET COUNT 140 X10'3 (140-440); RED BLOOD COUNT 4.05 X10'6 (4.70-6.10); RED CELL DISTRIBUTION WIDTH 17.4 % (11.5-14.5); WHITE BLOOD COUNT 8.4 X10'3 (4.5-11.0)
[2023-03-06 09:32] LABS: ALBUMIN 2.8 G/DL (3.4-5.0); ANION GAP 13 (8-16); BLOOD UREA NITROGEN 75 MG/DL (7-18); BUN/CREATININE RATIO 9.8 (10.0-20.0); CALCIUM 8.3 MG/DL (8.5-10.1); CHLORIDE 95 MMOL/L (99-107); CREATININE 7.69 MG/DL (0.60-1.10); GLUCOSE 236 MG/DL (70-104); SODIUM 137 MMOL/L (135-145); TOTAL CARBON DIOXIDE 28.7 MMOL/L (24-32); eGFR 7 ML/MIN
[2023-03-06 09:36] LABS: POTASSIUM 5.7 MMOL/L (3.5-5.1)
[2023-03-06] MEDS ORDERED: diphenhydrAMINE 50 mg/ml inj ONE (09:58)
[2023-03-06 10:45] VITALS: BP 144/68
[2023-03-06 11:00] VITALS: BP 151/73
[2023-03-06 11:15] VITALS: BP 151/66
[2023-03-06 11:30] VITALS: BP 152/71
== END 2023-03-06 11:45 | disposition home or self-care (01) ==
LOC: SSTAY O 08:15
PROVIDERS: ATTEND Radiology Vascular & Interventional Radiology
DX: T82.858A Stenosis of other vascular prosthetic devices, implants and grafts, initial encounter (principal); E11.22 Type 2 diabetes mellitus with diabetic chronic kidney disease; N18.6 End stage renal disease; Z88.1 Allergy status to other antibiotic agents; Z79.899 Other long term (current) drug therapy; Z79.4 Long term (current) use of insulin; Z79.01 Long term (current) use of anticoagulants; Y83.2 Surgical operation with anastomosis, bypass or graft as the cause of abnormal reaction of the patient, or of later complication, without mention of misadventure at the time of the procedure; Y92.89 Other specified places as the place of occurrence of the external cause
CPT/HCPCS: 36415; 36902; 80048; 85025; 85610; 99152; 99153; C1725; C1769; J1200; J1644; J2250; J3010; J7030; Q9967; A4620; C1726; C1894; C2623

== ENCOUNTER 2023-05-28 06:26 | Day surgery (SDC) | payer MEDICARE, MEDICAID ==
[~2023-05-28] VITALS: Ht 185.4 cm; Wt 74.7 kg
[2023-05-28] VITALS (7 sets, daily range): BP systolic 144–163; BP diastolic 68–74; PULSE 60–63; RESP 14–15; TEMP 98; O2SAT 95–98
[~2023-05-28 06:26] MED LIST changes: -ASPI-1264 PO; +PANT-47 PO; +SEVE800T8 PO
[2023-05-28] MEDS ORDERED: normal saline 1000ml 1,000 ML IV PRN (06:45)
[2023-05-28 07:21] LABS: BASOPHILS # (AUTO) 0.1 X10'3 (0-0.2); BASOPHILS % (AUTO) 1.1 % (0-1); EOSINOPHILS # (AUTO) 0.6 X10'3 (0-0.9); HEMATOCRIT 42.7 % (42.0-52.0); HEMOGLOBIN 14.4 g/dl (14.0-17.9); LYMPHOCYTES # (AUTO) 1.1 X10'3 (1.1-4.8); LYMPHOCYTES % (AUTO) 12.9 % (21-51); MEAN CORPUSCULAR HEMOGLOBIN 33.1 PG (27.0-31.0); MEAN CORPUSCULAR HGB CONC 33.7 g/dL (33.0-36.5); MEAN CORPUSCULAR VOLUME 98.1 FL (78-98); MEAN PLATELET VOLUME 7.5 FL (7.4-10.4); MONOCYTES # (AUTO) 0.7 X10'3 (0-0.9); MONOCYTES % (AUTO) 8.2 % (2-12); NEUTROPHILS # (AUTO) 5.9 X10'3 (1.8-7.7); NEUTROPHILS % (AUTO) 70.8 % (42-75); PLATELET COUNT 146 X10'3 (140-440); RED BLOOD COUNT 4.35 X10'6 (4.70-6.10); RED CELL DISTRIBUTION WIDTH 18.2 % (11.5-14.5); WHITE BLOOD COUNT 8.4 X10'3 (4.5-11.0)
[2023-05-28 07:29] LABS: INR 1.1 INR; PROTHROMBIN TIME 11.3 SECONDS (9.0-12.0)
[2023-05-28 07:30] LABS: ALBUMIN 3.2 G/DL (3.4-5.0); ANION GAP 6 (8-16); BLOOD UREA NITROGEN 43 MG/DL (7-18); BUN/CREATININE RATIO 7.2 (10.0-20.0); CALCIUM 9.6 MG/DL (8.5-10.1); CHLORIDE 99 MMOL/L (99-107); CREATININE 5.98 MG/DL (0.60-1.10); GLUCOSE 181 MG/DL (70-104); POTASSIUM 5.3 MMOL/L (3.5-5.1); SODIUM 139 MMOL/L (135-145); TOTAL CARBON DIOXIDE 33.8 MMOL/L (24-32); eCRCL 12 ML/MIN; eGFR 9 ML/MIN
[2023-05-28] MEDS ORDERED: midazolam 1 mg/ML 2ml injection ONE ×2 (08:03→13:49)
[2023-05-28] MEDS ORDERED: fentaNYL/PF 50MCG/1 ML 2ML syringe ONE ×2 (08:03→13:49)
[2023-05-28] MEDS ORDERED: tPA-cathflo 2 MG/2 ml IV flush ONE (08:18)
[2023-05-28] MEDS ORDERED: iohexol 300mg/ml 100ml inj. ONE (09:01)
[2023-05-28] MEDS ORDERED: heparin 1,000 UNITS/NS 500ml 500 ML ONE ×2 (09:01→15:00)
[2023-05-28] MEDS ORDERED: heparin 1,000unit/ml 10ml vial 10 ML ONE (14:05)
== END 2023-05-28 17:35 | disposition home or self-care (01) ==
LOC: SSTAY O 06:26
PROVIDERS: ATTEND Radiology Vascular & Interventional Radiology
DX: T82.868A Thrombosis due to vascular prosthetic devices, implants and grafts, initial encounter (principal); E11.22 Type 2 diabetes mellitus with diabetic chronic kidney disease; N18.6 End stage renal disease; F17.210 Nicotine dependence, cigarettes, uncomplicated; Z98.890 Other specified postprocedural states; Z88.1 Allergy status to other antibiotic agents; Z79.899 Other long term (current) drug therapy; Z79.4 Long term (current) use of insulin; Y83.2 Surgical operation with anastomosis, bypass or graft as the cause of abnormal reaction of the patient, or of later complication, without mention of misadventure at the time of the procedure; Y92.89 Other specified places as the place of occurrence of the external cause
CPT/HCPCS: 36415; 36904; 36907; 80048; 85025; 85610; 99152; 99153; C1725; C1769; C1894; J1644; J2250; J2997; J3010; J7030; Q9967; A6402; C1726

== ENCOUNTER 2024-01-28 09:02 | Emergency (ER) | payer MEDICARE, MEDICAID ==
[~2024-01-28] VITALS: Ht 185.4 cm; Wt 71.8 kg
[~2024-01-28 09:02] MED LIST changes: -LOP12.5T PO
[2024-01-28] MEDS: ondansetron 4mg rapidly disintigrating tab PO ONE (10:31)
[2024-01-28 10:46] LABS: BASOPHILS # (AUTO) 0.1 X10'3 (0-0.2); BASOPHILS % (AUTO) 1.7 % (0-1); EOSINOPHILS # (AUTO) 0.2 X10'3 (0-0.9); EOSINOPHILS % (AUTO) 2.6 % (0-6); HEMATOCRIT 37.6 % (42.0-52.0); LYMPHOCYTES # (AUTO) 0.9 X10'3 (1.1-4.8); LYMPHOCYTES % (AUTO) 11.1 % (21-51); MEAN CORPUSCULAR HEMOGLOBIN 28.2 PG (27.0-31.0); MEAN CORPUSCULAR HGB CONC 31.8 g/dL (33.0-36.5); MEAN CORPUSCULAR VOLUME 88.6 FL (78-98); MEAN PLATELET VOLUME 7.2 FL (7.4-10.4); MONOCYTES # (AUTO) 0.6 X10'3 (0-0.9); MONOCYTES % (AUTO) 8.1 % (2-12); NEUTROPHILS # (AUTO) 6.1 X10'3 (1.8-7.7); NEUTROPHILS % (AUTO) 76.5 % (42-75); PLATELET COUNT 218 X10'3 (140-440); RED BLOOD COUNT 4.25 X10'6 (4.70-6.10); RED CELL DISTRIBUTION WIDTH 23.9 % (11.5-14.5)
[2024-01-28 11:03] LABS: ANISOCYTOSIS 3+; PLATELET ESTIMATE NORMAL
[2024-01-28 11:04] LABS: ALBUMIN 2.7 G/DL (3.4-5.0); ANION GAP 10 (8-16); BLOOD UREA NITROGEN 45 MG/DL (7-18); CALCIUM 9.6 MG/DL (8.5-10.1); CHLORIDE 95 MMOL/L (99-107); CREATININE 6.39 MG/DL (0.60-1.10); GLUCOSE 270 MG/DL (70-104); MAGNESIUM 2.4 MG/DL (1.5-2.4); POIKILOCYTOSIS FEW; POLYCHROMASIA FEW; SODIUM 136 MMOL/L (135-145); TOTAL CARBON DIOXIDE 31.3 MMOL/L (24-32); eCRCL 10 ML/MIN; eGFR 9 ML/MIN
[2024-01-28 11:05] LABS: ELLIPTOCYTES FEW; STOMATOCYTES FEW; TEAR DROP CELLS FEW
[2024-01-28] MEDS ORDERED: SULF1TAB49 PO (13:50)
[2024-01-28] MEDS ORDERED: CEPH-585 PO (13:50)
[2024-01-28 14:02] VITALS: BP 165/62; PULSE 60; RESP 17; TEMP 98; O2SAT 97
== END 2024-01-28 14:04 | disposition home or self-care (01) ==
LOC: ER 09:02 → MERGE 09:02 → ER 14:04
DX: T81.41XA Infection following a procedure, superficial incisional surgical site, initial encounter (principal); Z88.8 Allergy status to other drugs, medicaments and biological substances; Z79.4 Long term (current) use of insulin; M79.602 Pain in left arm
CPT/HCPCS: 36415; 71045; 80048; 83605; 83735; 84145; 85008; 85025; 87040; 93005; 93971; 99285

== ENCOUNTER 2024-02-03 09:43 | Emergency (ER) | payer MEDICARE, MEDICAID ==
[~2024-02-03 09:43] MED LIST changes: +CEPH-585 PO; +SULF1TAB49 PO
== END 2024-02-03 09:56 | disposition left against medical advice (07) ==
LOC: ER 09:43
DX: T80.90XA Unspecified complication following infusion and therapeutic injection, initial encounter (principal); Z53.21 Procedure and treatment not carried out due to patient leaving prior to being seen by health care provider